=== PATIENT | male | born 1960 | race Hispanic/Latino ===

== ENCOUNTER 2016-08-29 15:10 | Emergency (ER) | payer MEDICARE, OTHER ==
[2016-08-29 15:11] VITALS: PULSE 81; BMI 22.8
[2016-08-29 15:42] VITALS: TEMP 98.6; O2SAT 95
[2016-08-29] MEDS ORDERED: Oxycodone/Acetaminophen 5/325 mg Tab PO STA (16:01)
--- NOTE | 2016-08-29 16:06 | ED PDOC ---
Arrival/HPI - General Chief Complaint: Dental Pain Time Seen by Provider: 08/29/16 15:51 Historian: Patient - History of Present Illness Narrative History of Present Illness (Text): 08/29/16 16:03 56yo male with PMHX of hypertension, ESRD on dialysis present with one week history of toothache, mouth pain. states he has being taking ASA for the pain without relieve. Pain became worse today and he is unable to chew food secondary to the pain. Denies fever, chills, drooling, any other complaint. Past Medical History - Provider Review Nursing Documentation Reviewed: Yes - Past History Past History: Non-Contributing - Infectious Disease Hx of Infectious Diseases: None - Tetanus Immunization Tetanus Immunization: Unknown - Reproductive Currently : No - Cardiac Hx Cardiac Disorders: Yes Hx Hypertension: Yes Hx Pacemaker: No - Pulmonary Hx Respiratory Disorders: Yes Hx Bronchitis: Yes Hx Chronic Obstructive Pulmonary Disease (COPD): Yes - Neurological Hx Neurological Disorder: No - HEENT Hx HEENT Disorder: No Hx Blind: No Hx Cataracts: No Hx Deafness: No Hx Difficulty Chewing: No Hx Epistaxis: No Hx Glaucoma: No Hx Macular Degeneration: No - Renal Hx Dialysis: Yes Date of Last Dialysis Treatment: 04/19/16 Hx Renal Failure: Yes (Hemodialysis) Other/Comment: glomerlonephritis (last may). Hemo dialysis M,W,F, [facility]. Has working left arm AV fistula, intermittent peritoneal dialysis - Endocrine/Metabolic Hx Endocrine Disorders: No - Hematological/Oncological Hx Blood Disorders: Yes - Integumentary Hx Dermatological Disorder: No - Musculoskeletal/Rheumatological Hx Falls: No - Gastrointestinal Hx Gastrointestinal Disorders: No - Genitourinary/Gynecological Hx Genitourinary Disorders: No Other/Comment: oliguria - Psychiatric Hx Psychophysiologic Disorder: No Hx Emotional Abuse: No Hx Physical Abuse: No Hx Substance Use: No - Surgical History Other/Comment: Left forearm av fistula , r chest udall insertion and removal, excision throat cyst - Anesthesia Hx Anesthesia: Yes Hx Anesthesia Reactions: No Hx Malignant Hyperthermia: No - Suicidal Assessment Feels Threatened In Home Enviroment: No Family/Social History - Physician Review Nursing Documentation Reviewed: Yes Family/Social History: Unknown Family HX Smoking Status: Former Smoker Hx Alcohol Use: No Hx Substance Use: No Hx Substance Use Treatment: No Allergies/Home Meds Allergies/Adverse Reactions: Allergies No Known Allergies Allergy (Verified 08/29/16 15:34) Home Medications: Home Meds Medication Instructions Recorded Confirmed Pantoprazole [Protonix EC Tab] 20 mg PO DAILY 08/30/13 04/21/16 Ramipril 5 mg PO BID 03/01/14 04/21/16 Cinacalcet [Sensipar] 30 mg PO DAILY 06/13/15 03/24/16 Digoxin [Lanoxin] 0.25 mg PO MWF 06/13/15 03/24/16 Vitamin B Complex/Vit C/Folic 1 tab PO DAILY 06/13/15 04/21/16 [Nephro-Karis] Calcium Acetate [Phoslo] 667 mg PO WM 01/18/16 04/21/16 Ferric Citrate [Auryxia] 210 mg PO TID 08/29/16 08/29/16 Review of Systems - Physician Review All systems were reviewed & negative as marked: Yes - Review of Systems Constitutional: Normal Eyes: Normal ENT: Other (Toothache) Respiratory: Normal Cardiovascular: Normal Gastrointestinal: Normal Genitourinary Male: Normal Musculoskeletal: Normal Skin: Normal Neurological: Normal Endocrine: Normal Hemo/Lymphatic: Normal Psychiatric: Normal Physical Exam Vital Signs Reviewed: Yes Vital Signs Temp Pulse Resp BP Pulse Ox 08/29/16 15:41 98.6 F 79 20 160/100 H 95 Temperature: Afebrile Blood Pressure: Normal Pulse: Regular Respiratory Rate: Normal Appearance: Positive for: Well-Appearing, Non-Toxic, Comfortable Pain Distress: None Mental Status: Positive for: Alert and Oriented X 3 - Systems Exam Head: Present: Atraumatic, Normocephalic Pupils: Present: PERRL Extroacular Muscles: Present: EOMI Conjunctiva: Present: Normal Mouth: Present: Moist Mucous Membranes. No: Normal Teeth (Poor dention in general. Multiple missing tooth noted) Neck: Present: Normal Range of Motion Respiratory/Chest: Present: Clear to Auscultation, Good Air Exchange. No: Respiratory Distress, Accessory Muscle Use Cardiovascular: Present: Regular Rate and Rhythm, Normal S1, S2. No: Murmurs Abdomen: Present: Normal Bowel Sounds. No: Tenderness, Distention, Peritoneal Signs Back: Present: Normal Inspection Upper Extremity: Present: Normal Inspection. No: Cyanosis, Edema Lower Extremity: Present: Normal Inspection. No: Edema Neurological: Present: GCS=15, CN II-XII Intact, Speech Normal Skin: Present: Warm, Dry, Normal Color. No: Rashes Psychiatric: Present: Alert, Oriented x 3, Normal Insight, Normal Concentration Medical Decision Making ED Course and Treatment: 08/29/16 16:39 PT was afebrile and hemodynamically stable in ED. He was tx and DC home with Percocet and Amoxicillin. he was advised to f/u with a Dentist. He notes that he plans to see a dentist tomorrow. Advised to eat soft food. - Medication Orders Current Medication Orders: Discontinued Medications Amoxicillin (Amoxil 500 Mg Cap) 500 mg PO STAT STA PRN Reason: Protocol Stop: 08/29/16 16:02 Last Admin: 08/29/16 16:30 Dose: 500 mg Oxycodone/Acetaminophen (Percocet 5/325 Mg Tab) 1 tab PO STAT STA Stop: 08/29/16 16:02 Last Admin: 08/29/16 16:30 Dose: 1 tab Disposition/Present on Arrival - Present on Arrival Any Indicators Present on Arrival: No History of DVT/PE: No History of Uncontrolled Diabetes: No Urinary Catheter: No History of Decub. Ulcer: No History Surgical Site Infection Following: None - Disposition Have Diagnosis and Disposition been Completed?: Yes Diagnosis: Dental caries Disposition: HOME/ ROUTINE Disposition Time: 16:10 Patient Plan: Discharge Condition: STABLE Discharge Instructions (ExitCare): Dental Caries (ED) Additional Instructions: Take medication as directed Follow up with a Dentist Return to ED for any new symptoms Prescriptions: Amoxicillin 500 mg PO TID #21 tablet Chlorhexidine 0.12% [Peridex] 15 ml MM BID #1 bottle oxyCODONE/Acetaminophen [Percocet 5/325 mg Tab] 1 ea PO Q6 #6 tab Referrals: Dayron Mart, [facility] [Non-Staff] - Follow up with primary
[2016-08-29 18:00] VITALS: BP 156/89; PULSE 71; RESP 18
== END 2016-08-29 16:36 | disposition home or self-care (01) ==
LOC: ED 15:10
DX: K02.9 Dental caries, unspecified (principal)

== ENCOUNTER 2016-08-30 20:42 | Observation (INO) | payer MEDICARE ==
[2016-08-30 20:42] VITALS: PULSE 81
--- NOTE | 2016-08-30 21:26 | ED PDOC ---
Arrival/HPI - General Chief Complaint: Medical Clearance Time Seen by Provider: 08/30/16 21:06 Historian: Patient - History of Present Illness Narrative History of Present Illness (Text): 08/30/16 21:24 56 year old male on hemodialysis (M,W,F) presents to the emergency department for dialysis after missing dialysis today (Friday). Patient's last dialysis was two days ago. He states he was told his potassium was high at that time but does not know if it was before or after dialysis. Patient is complaining of pain in his jaw. He states he had dental work today which is the reason why he missed dialysis. Denies chest pain or shortness of breath. Associated Symptoms (Text): None Past Medical History - Provider Review Nursing Documentation Reviewed: Yes - Past History Past History: Non-Contributing - Infectious Disease Hx of Infectious Diseases: None - Tetanus Immunization Tetanus Immunization: Unknown - Reproductive Currently : No - Cardiac Hx Cardiac Disorders: Yes Hx Hypertension: Yes Hx Pacemaker: No - Pulmonary Hx Respiratory Disorders: Yes Hx Bronchitis: Yes Hx Chronic Obstructive Pulmonary Disease (COPD): Yes - Neurological Hx Neurological Disorder: No - HEENT Hx HEENT Disorder: No Hx Blind: No Hx Cataracts: No Hx Deafness: No Hx Difficulty Chewing: No Hx Epistaxis: No Hx Glaucoma: No Hx Macular Degeneration: No - Renal Hx Dialysis: Yes Date of Last Dialysis Treatment: 08/28/16 Hx Renal Failure: Yes (Hemodialysis) Other/Comment: glomerlonephritis (last may). Hemo dialysis M,W,F, [facility]. Has working left arm AV fistula, intermittent peritoneal dialysis - Endocrine/Metabolic Hx Endocrine Disorders: No - Hematological/Oncological Hx Blood Disorders: Yes - Integumentary Hx Dermatological Disorder: No - Musculoskeletal/Rheumatological Hx Falls: No - Gastrointestinal Hx Gastrointestinal Disorders: No - Genitourinary/Gynecological Hx Genitourinary Disorders: No Other/Comment: oliguria - Psychiatric Hx Psychophysiologic Disorder: No Hx Emotional Abuse: No Hx Physical Abuse: No Hx Substance Use: No - Surgical History Other/Comment: Left forearm av fistula , r chest udall insertion and removal, excision throat cyst - Anesthesia Hx Anesthesia: Yes Hx Anesthesia Reactions: No Hx Malignant Hyperthermia: No - Suicidal Assessment Feels Threatened In Home Enviroment: No Family/Social History - Physician Review Nursing Documentation Reviewed: Yes Family/Social History: Unknown Family HX Smoking Status: Former Smoker Hx Alcohol Use: No Hx Substance Use: No Hx Substance Use Treatment: No Allergies/Home Meds Allergies/Adverse Reactions: Allergies No Known Allergies Allergy (Verified 08/30/16 20:52) Home Medications: Home Meds Medication Instructions Recorded Confirmed Pantoprazole [Protonix EC Tab] 20 mg PO DAILY 08/30/13 08/31/16 Ramipril 5 mg PO BID 03/01/14 08/31/16 Cinacalcet [Sensipar] 30 mg PO DAILY 06/13/15 08/31/16 Digoxin [Lanoxin] 0.25 mg PO MWF 06/13/15 08/31/16 Vitamin B Complex/Vit C/Folic 1 tab PO DAILY 06/13/15 08/31/16 [Nephro-Karis] Calcium Acetate [Phoslo] 667 mg PO WM 01/18/16 08/31/16 Ferric Citrate [Auryxia] 210 mg PO TID 08/29/16 08/31/16 Review of Systems - Physician Review All systems were reviewed & negative as marked: Yes - Review of Systems Respiratory: absent: SOB Cardiovascular: absent: Chest Pain Physical Exam Vital Signs Reviewed: Yes Vital Signs Temp Pulse Resp BP Pulse Ox 08/30/16 21:12 98.5 F 95 H 16 159/101 H 90 L 08/30/16 20:46 98.7 F 85 20 158/105 H 96 Temperature: Afebrile Blood Pressure: Hypertensive Pulse: Regular Respiratory Rate: Normal Appearance: Positive for: Well-Appearing, Non-Toxic Mental Status: Positive for: Alert and Oriented X 3 - Systems Exam Head: Present: Atraumatic, Normocephalic Pupils: Present: PERRL Extroacular Muscles: Present: EOMI Conjunctiva: Present: Normal Mouth: Present: Moist Mucous Membranes Neck: Present: Normal Range of Motion Respiratory/Chest: Present: Clear to Auscultation, Good Air Exchange. No: Respiratory Distress, Accessory Muscle Use Cardiovascular: Present: Regular Rate and Rhythm, Normal S1, S2. No: Murmurs Abdomen: Present: Normal Bowel Sounds. No: Tenderness, Distention, Peritoneal Signs Back: Present: Normal Inspection Upper Extremity: Present: Other (Left upper extremity AV graft with good thrill and bruit. ). No: Cyanosis, Edema Lower Extremity: Present: Normal Inspection. No: Edema Neurological: Present: GCS=15, CN II-XII Intact, Speech Normal Skin: Present: Warm, Dry, Normal Color, Other (Chronic skin lesions around body) . No: Rashes Psychiatric: Present: Alert, Oriented x 3, Normal Insight, Normal Concentration Medical Decision Making ED Course and Treatment: Impression: 56 year old male on hemodialysis (M,W,F) presents to the emergency department for dialysis after missing dialysis today (Friday). Plan: -- EKG -- Labs -- Reassess and disposition Prior Visits: Notes and results from previous visits were reviewed. Patient last seen in ED on 08/29/16 for tooth pain and discharged home. Progress Notes: Chest xray: no active disease, interpreted by me. 08/30/16 22:20 Potassium 7.3, stat ekg was done. Dr. Gomez paged and spoken to, who recommends calcium gluconate dose and to withhold bicarb at this time. Patient to receive emergent dialysis at 11 pm. 08/31/16 00:[address] Reese, who agrees and accepts patient under her service to be admitted to [facility]. Dr. Reese also requesting one dose of Kayexalate to be given in emergency department. Reevaluation: I have discussed the results and plan with the patient, who expresses understanding. Patient given the opportunity to ask question, all questions were answered and there is agreement with the plan to be admitted to the hospital. - Lab Interpretations Lab Results: 08/30/16 21:30 08/30/16 21:30 Lab Results 08/30/16 21:30: Troponin I 0.10 D 08/30/16 21:30: Sodium 137, Potassium 7.3 H*, Chloride 90 L, Carbon Dioxide 19 L , Anion Gap 35 H, BUN 82 H, Creatinine 13.7 H*, Est GFR ( Amer) 5, Est GFR (Non-Af Amer) 4, Random Glucose 85, Calcium 9.6, Total Bilirubin 1.0, AST 28 , ALT 30, Alkaline Phosphatase 61, Total Protein 7.4, Albumin 4.4, Globulin 3.1 , Albumin/Globulin Ratio 1.4 08/30/16 21:30: WBC 7.3, RBC 3.30 L, Hgb 11.6 L, Hct 35.6 L, MCV 107.9 H, MCH 35.2 H, MCHC 32.6, RDW 15.2 H, Plt Count 217, MPV 9.1, Gran % 68.6 H, Lymph % ( Auto) 16.1 L, [place] % (Auto) 9.3 H, Eos % (Auto) 5.2 H, Baso % (Auto) 0.8, Gran # 5.01, Lymph # 1.2, [place] # 0.7 H, Eos # 0.4, Baso # 0.06 - Medication Orders Current Medication Orders: Discontinued Medications Acetaminophen (Tylenol 325mg Tab) 975 mg PO STAT STA Stop: 08/31/16 00:30 Last Admin: 08/31/16 02:49 Dose: 975 mg Calcium Gluconate 1,000 mg/ (Sodium Chloride) 110 mls @ 100 mls/hr IV STAT STA Stop: 08/30/16 23:35 Last Admin: 08/30/16 22:40 Dose: 100 mls/hr Sodium Polystyrene Sulfonate (Kayexalate Oral Susp) 15 gm PO STAT STA Stop: 08/31/16 00:31 Last Admin: 08/31/16 02:49 Dose: 15 gm - Scribe Statement The provider has reviewed the documentation as recorded by the Demian Barker Provider Scribe Attestation: All medical record entries made by the Demian were at my direction and personally dictated by me. I have reviewed the chart and agree that the record accurately reflects my personal performance of the history, physical exam, medical decision making, and the department course for this patient. I have also personally directed, reviewed, and agree with the discharge instructions and disposition. Disposition/Present on Arrival - Present on Arrival Any Indicators Present on Arrival: No History of DVT/PE: No History of Uncontrolled Diabetes: No Urinary Catheter: No History of Decub. Ulcer: No History Surgical Site Infection Following: None - Disposition Have Diagnosis and Disposition been Completed?: Yes Diagnosis: ESRD (end stage renal disease), Hyperkalemia Disposition: HOSPITALIZED Disposition Time: 00:30 Condition: STABLE
[2016-08-30 21:44] LABS: BASO # 0.06 K/mm3 (0.0-2.0); BASO % 0.8 % (0.0-3.0); EOS # 0.4 (0.0-0.7); EOS % 5.2 % (1.5-5.0); GRAN # 5.01 (1.4-6.5); GRAN % 68.6 % (50.0-68.0); HEMOGLOBIN 11.6 gm/dL (14.0-18.0); LYMPH # 1.2 (1.2-3.4); LYMPH % 16.1 % (22.0-35.0); MEAN CELL VOLUME 107.9 fL (80.0-105.0); MEAN CORPUSCULAR HEMOGLOBIN 35.2 pg (25.0-35.0); MEAN CORPUSCULAR HGB CONC 32.6 g/dl (31.0-37.0); MEAN PLATELET VOLUME 9.1 fl (7.0-11.0); MONO # 0.7 (0.1-0.6); MONO % 9.3 % (1.0-6.0); PLATELET COUNT 217 10^3/uL (120.0-450.0); RED CELL DISTRIBUTION WIDTH 15.2 % (11.5-14.5); WHITE BLOOD COUNT 7.3 10^3/ul (4.5-11.0)
[2016-08-30 21:51] LABS: ALB/GLOB RATIO 1.4 (1.1-1.8); ALBUMIN 4.4 g/dL (3.0-4.8); CALCIUM 9.6 mg/dL (8.4-10.5)
[2016-08-30] MEDS ORDERED: Sodium Bicarbonate (8.4%) 50 Meq Syringe IVP ONE ×2 (22:20→22:21)
[2016-08-31] MEDS ORDERED: Sod Polystyrene Sulf 15 gm/60 ml Oral Susp PO STA (00:30)
[2016-08-31 06:09] VITALS: RESP 20; BMI 23.6
[2016-08-31] MEDS ORDERED: Pneumococcal 23-Valent Vaccine IM ONE (06:10)
[2016-08-31 06:30] VITALS: O2SAT 97
--- NOTE | 2016-08-31 06:48 | CP.PCM.PN ---
Subjective - Date & Time of Evaluation Date of Evaluation: 08/31/16 Time of Evaluation: 06:34 - Subjective Subjective: s:Patient seen at bedside for tooth ache. States that his all teeth are hurting. States that he had been to a dentist yesterday. Has no other complaints now. O: Last Vital Signs 3 Temp 98.1 F 08/31/16 06:00 Pulse 89 08/31/16 06:13 Resp 20 08/31/16 06:00 BP 172/88 H 08/31/16 06:00 Pulse Ox 97 08/31/16 06:00 Awake, alert, not in distress. LUNGS:Normal breathing pattern. TEETH:Did not allow exam. A:Tooth ache. P:Tylenol 975 mg po stat. Objective - Vital Signs/Intake and Output Vital Signs (last 24 hours): Temp Pulse Resp BP Pulse Ox 98.1 F 89 20 172/88 H 97 08/31/16 06:00 08/31/16 06:13 08/31/16 06:00 08/31/16 06:00 08/31/16 06:00
[2016-08-31 09:21] LABS: ALB/GLOB RATIO 1.4 (1.1-1.8); ALBUMIN 4.6 g/dL (3.0-4.8); CALCIUM 9.7 mg/dL (8.4-10.5)
--- NOTE | 2016-08-31 09:59 | CARD ---
APPROVED REPORT EKG Measurement Heart [id number] <Conclusion> Sinus rhythm with frequent and consecutive APCs LBBB STTW changes All new c/w ECG 04/21/16
[2016-08-31] MEDS ORDERED: Pantoprazole 20 mg EC Tab PO SCH (10:00)
[2016-08-31] MEDS ORDERED: Sod Polystyrene Sulf 15 gm/60 ml Oral Susp PO ONE (10:07)
[2016-08-31] MEDS ORDERED: Aluminum Hydroxide/Magnesium 30 ML, DiphenhydrAMINE 75 MG, Lidocaine 2% Viscous 30 ML PO PRN (10:36)
[2016-08-31 11:44] VITALS: TEMP 98.2
[2016-08-31] MEDS: Oxycodone/Acetaminophen 5/325 mg Tab PO SCH ×2 (12:10→18:04)
[2016-08-31] MEDS: Chlorhexidine 0.12% Oral Sol 480 ml Bot PO SCH ×2 (12:24→18:11)
[2016-08-31 14:23] LABS: HEMOGLOBIN 11.1 gm/dL (14.0-18.0); MEAN CELL VOLUME 106.8 fL (80.0-105.0); MEAN CORPUSCULAR HEMOGLOBIN 34.5 pg (25.0-35.0); MEAN CORPUSCULAR HGB CONC 32.3 g/dl (31.0-37.0); MEAN PLATELET VOLUME 8.9 fl (7.0-11.0); RBC 3.22 10^6/uL (3.5-6.1); RED CELL DISTRIBUTION WIDTH 14.8 % (11.5-14.5); WHITE BLOOD COUNT 6.1 10^3/ul (4.5-11.0)
[2016-08-31 14:27] LABS: ALB/GLOB RATIO 1.5 (1.1-1.8); ALBUMIN 4.2 g/dL (3.0-4.8); CALCIUM 9.3 mg/dL (8.4-10.5); MAGNESIUM 2.7 mg/dL (1.7-2.2)
[2016-08-31 18:07] VITALS: BP 175/93; PULSE 84
[2016-08-31 18:36] LABS: ALB/GLOB RATIO 1.4 (1.1-1.8); ALBUMIN 4.6 g/dL (3.0-4.8); CALCIUM 9.8 mg/dL (8.4-10.5)
[2016-09-02] MEDS ORDERED: Digoxin 250 mcg (0.25 mg) Tab PO SCH (10:00)
== END 2016-08-31 19:32 | disposition home or self-care (01) ==
LOC: ED 20:42 → ERH 08-31 00:30 → 2RSO 08-31 03:07
PROVIDERS: ADMIT Internal Medicine; ATTEND Internal Medicine
DX: I12.0 Hypertensive chronic kidney disease with stage 5 chronic kidney disease or end stage renal disease (principal); N18.6 End stage renal disease; J44.9 Chronic obstructive pulmonary disease, unspecified; E87.5 Hyperkalemia; Z99.2 Dependence on renal dialysis; K08.89 Other specified disorders of teeth and supporting structures; D64.9 Anemia, unspecified; R34 Anuria and oliguria; Z87.891 Personal history of nicotine dependence; Z91.15 Patient's noncompliance with renal dialysis
CPT/HCPCS: 36415; 80053; 83735; 84100; 84484; 85025; 85027; 93005; 96374; 99285; G0257; G0378; J0610

== ENCOUNTER 2017-01-12 11:54 | Emergency (ER) | payer MEDICARE ==
[2017-01-12 11:54] VITALS: PULSE 81; BMI 23.6
[2017-01-12] MEDS ORDERED: Ipratropium 0.02% Inhal Soln (0.5 mg/2.5 ml) UD IH STA (12:10)
[2017-01-12 12:20] VITALS: TEMP 97.7
--- NOTE | 2017-01-12 12:51 | ED PDOC ---
Arrival/HPI - General Chief Complaint: Shortness Of Breath Time Seen by Provider: 01/12/17 11:55 Historian: Patient - History of Present Illness Narrative History of Present Illness (Text): 01/12/17 12:54 A 56 year old male, whose past medical history includes ESRD on dialysis (M, W, F), left upper extremity fistula, last dialysis Friday, and CHF, presents to the emergency department complaining of 2 days of relative and worsening shortness of breath. Patient reports exercise tolerance from 1-2 miles to a block. Notes abdomen feels full and distended in general. Reports he wants photo optics technician to take off more fluids, but they're not taking him off. Patient feels he needs emergent dialysis. Patient denies any fever, chills, chest pain, palpitations, orthopnea, pnd, peripheral edema, syncopal events or any other complaints at this time. Therapy Assistant: Dr. Gomez Time/Duration: Other (2 days) Symptom Onset: Sudden Symptom Course: Unchanged Activities at Onset: Rest Context: Home Past Medical History - Provider Review Nursing Documentation Reviewed: Yes - Past History Past History: Non-Contributing - Infectious Disease Hx of Infectious Diseases: None - Tetanus Immunization Tetanus Immunization: Unknown - Reproductive Currently : No - Cardiac Hx Cardiac Disorders: Yes Hx Hypertension: Yes Hx Pacemaker: No - Pulmonary Hx Respiratory Disorders: Yes Hx Bronchitis: Yes Hx Chronic Obstructive Pulmonary Disease (COPD): Yes - Neurological Hx Neurological Disorder: No - HEENT Hx HEENT Disorder: No Hx Blind: No Hx Cataracts: No Hx Deafness: No Hx Difficulty Chewing: No Hx Epistaxis: No Hx Glaucoma: No Hx Macular Degeneration: No - Renal Hx Dialysis: Yes Type of Dialysis Access: shunt left arm Date of Last Dialysis Treatment: 01/10/17 Hx Renal Failure: Yes - Endocrine/Metabolic Hx Endocrine Disorders: No - Hematological/Oncological Hx Blood Disorders: Yes - Integumentary Hx Dermatological Disorder: No - Musculoskeletal/Rheumatological Hx Falls: No - Gastrointestinal Hx Gastrointestinal Disorders: No - Genitourinary/Gynecological Hx Genitourinary Disorders: No Other/Comment: oliguria - Psychiatric Hx Psychophysiologic Disorder: No Hx Emotional Abuse: No Hx Physical Abuse: No Hx Substance Use: No - Surgical History Other/Comment: Left forearm av fistula , r chest udall insertion and removal, excision throat cyst - Anesthesia Hx Anesthesia: Yes Hx Anesthesia Reactions: No Hx Malignant Hyperthermia: No - Suicidal Assessment Feels Threatened In Home Enviroment: No Family/Social History - Physician Review Nursing Documentation Reviewed: Yes Family/Social History: No Known Family HX Smoking Status: Current Some Days Smoker Hx Alcohol Use: Yes Frequency of alcohol use: Socially Hx Substance Use: No Hx Substance Use Treatment: No Allergies/Home Meds Allergies/Adverse Reactions: Allergies No Known Allergies Allergy (Verified 08/30/16 20:52) Home Medications: Home Meds Medication Instructions Recorded Confirmed Pantoprazole [Protonix EC Tab] 20 mg PO DAILY 08/30/13 08/31/16 Ramipril 5 mg PO BID 03/01/14 08/31/16 Cinacalcet [Sensipar] 30 mg PO DAILY 06/13/15 08/31/16 Digoxin [Lanoxin] 0.25 mg PO MWF 06/13/15 08/31/16 Vitamin B Complex/Vit C/Folic 1 tab PO DAILY 06/13/15 08/31/16 [Nephro-Karis] Calcium Acetate [Phoslo] 667 mg PO WM 01/18/16 08/31/16 Ferric Citrate [Auryxia] 210 mg PO TID 08/29/16 08/31/16 Review of Systems - Physician Review All systems were reviewed & negative as marked: Yes - Review of Systems Constitutional: absent: Fevers, Other (chills) Respiratory: SOB, Cough (chronic smokers) Cardiovascular: absent: Chest Pain, Palpitations, Orthopnea Physical Exam Vital Signs Reviewed: Yes Vital Signs Temp Pulse Resp BP Pulse Ox 01/12/17 21:02 81 18 149/88 100 01/12/17 16:18 92 H 18 151/83 H 94 L 01/12/17 15:13 20 01/12/17 14:48 161/82 H 01/12/17 14:26 94 H 16 171/101 H 100 01/12/17 12:01 97.7 F 110 H 16 169/87 H 95 Temperature: Afebrile Blood Pressure: Hypertensive Pulse: Tachycardic Respiratory Rate: Normal Appearance: Positive for: Well-Appearing, Non-Toxic, Comfortable Pain Distress: None Mental Status: Positive for: Alert and Oriented X 3 - Systems Exam Head: Present: Atraumatic, Normocephalic Pupils: Present: PERRL Extroacular Muscles: Present: EOMI Conjunctiva: Present: Normal Mouth: Present: Moist Mucous Membranes Neck: Present: Normal Range of Motion Respiratory/Chest: Present: Other (decrease i/e ratio). No: Respiratory Distress, Accessory Muscle Use Cardiovascular: Present: Regular Rate and Rhythm, Normal S1, S2. No: Murmurs Abdomen: Present: Normal Bowel Sounds. No: Tenderness, Distention, Peritoneal Signs Back: Present: Normal Inspection Upper Extremity: Present: Normal Inspection, Other (left upper extremity fistula forearm palpable, thrill and auscultative bruits). No: Cyanosis, Edema Lower Extremity: Present: Normal Inspection, NORMAL PULSES, Other (no peripheral edema). No: Edema Neurological: Present: GCS=15, CN II-XII Intact, Speech Normal Skin: Present: Warm, Dry, Normal Color. No: Rashes Psychiatric: Present: Alert, Oriented x 3, Normal Insight, Normal Concentration Medical Decision Making ED Course and Treatment: 01/12/17 12:48 Impression: A 56 year old male with shortness of breath. Plan: -- EKG -- Chest xray -- labs -- Urinalysis -- Atrovent -- Reassess and disposition Prior Visits: Notes and results from previous visits were reviewed. Patient last reported to the emergency department on 08/31/16 for dialysis treatment. Progress Notes: 01/12/17 13:33 Chest xray Creator : Leland Connelly MD FINDINGS: LUNGS: Diffuse interstitial infiltrate. Right medial basilar opacity is felt to be artifactual and does not correspond any abnormality in the lateral projection. . PLEURA: No significant pleural effusion identified. No pneumothorax apparent. CARDIOVASCULAR: Normal. OSSEOUS STRUCTURES: No significant abnormalities. VISUALIZED UPPER ABDOMEN: Normal. IMPRESSION: Diffuse interstitial infiltrate. Nonspecific peer In comparison to the prior examination, the interstitial infiltrate has not changed. Previously identified focal opacity in the left perihilar region has resolved. Right medial basilar opacity is felt to be artifactual and does not correspond any opacity in the lateral projection. 01/12/17 13:56 EKG: Ordered, reviewed, and independently interpreted the EKG. Rate : 88 BPM Rhythm : NSR Interpretation : T wave inversion in 1 and avl, subtle ST/T segment in v4-v6, lvh 01/12/17 21:15 pt was dialysed , and walking out of er despite being implored to stay - Lab Interpretations Lab Results: 01/12/17 13:28 01/12/17 13:28 Lab Results 01/12/17 13:28: Sodium 140, Chloride 92 L, Potassium 6.5 H* D, Carbon Dioxide 28 , Anion Gap 27 H, BUN 72 H, Creatinine 11.1 H*, Est GFR ( Amer) 6, Est GFR (Non-Af Amer) 5, Random Glucose 94, Calcium 10.9 H, Total Bilirubin 0.6, AST 39, ALT 31, Alkaline Phosphatase 72, Lactate Dehydrogenase 451, Total Creatine Kinase 87, Troponin I 0.10, NT-Pro-B Natriuret Pep [id number] H, Total Protein 7.6, Albumin 4.5, Globulin 3.1, Albumin/Globulin Ratio 1.5 01/12/17 13:28: pO2 34, VBG pH 7.38, VBG pCO2 51.0, VBG HCO3 30.2 H, VBG Total CO2 31.8 H, VBG O2 Sat (Calc) 62.0, VBG Base Excess 3.9 H, VBG Potassium 6.7 H* , Sodium 136.0, Chloride 96.0 L, Glucose 95, Lactate 1.1, FiO2 21.0, Venous Blood Potassium 6.7 H* 01/12/17 13:28: PT 11.5, INR 1.05, APTT 33.3 01/12/17 13:28: WBC 10.9 D, RBC 2.48 L, Hgb 8.5 L, Hct 26.9 L, MCV 108.5 H, MCH 34.3, MCHC 31.6, RDW 15.4 H, Plt Count 259, MPV 8.7, Gran % 81.7 H, Lymph % (Auto) 9.9 L, [place] % (Auto) 5.7, Eos % (Auto) 2.2, Baso % (Auto) 0.5, Gran # 8.93 H, Lymph # 1.1 L, [place] # 0.6, Eos # 0.2, Baso # 0.06 I have reviewed the lab results: Yes - RAD Interpretation Radiology Orders: 01/12/17 12:09 CHEST TWO VIEWS (PA/LAT) [RAD] Stat - EKG Interpretation Interpreted by ED Physician: Yes Type: 12 lead EKG - Medication Orders Current Medication Orders: Discontinued Medications Calcium Gluconate (Calcium Gluconate Iv) 1,000 mg IVP ONCE ONE Stop: 01/12/17 14:06 Last Admin: 01/12/17 14:51 Dose: 1,000 mg IVP Administration Document 01/12/17 14:51 HI (Rec: 01/12/17 14:51 WI [id number]) Charges for Administration # of IVP Administrations 1 Ipratropium [place] (Atrovent) 0.5 mg IH STAT STA Stop: 01/12/17 12:11 Last Admin: 01/12/17 13:34 Dose: 0.5 mg - Scribe Statement The provider has reviewed the documentation as recorded by the Demian Padgett Provider Scribe Attestation: All medical record entries made by the Scribe were at my direction and personally dictated by me. I have reviewed the chart and agree that the record accurately reflects my personal performance of the history, physical exam, medical decision making, and the department course for this patient. I have also personally directed, reviewed, and agree with the discharge instructions and disposition. Disposition/Present on Arrival - Present on Arrival Any Indicators Present on Arrival: No History of DVT/PE: No History of Uncontrolled Diabetes: No Urinary Catheter: No History of Decub. Ulcer: No History Surgical Site Infection Following: None - Disposition Have Diagnosis and Disposition been Completed?: Yes Diagnosis: Fluid overload, Hyperkalemia Disposition: HOME/ ROUTINE Disposition Time: 21:17 Patient Plan: Discharge Condition: IMPROVED Discharge Instructions (ExitCare): Hemodialysis (ED) Print Language: AZERI Referrals: Deidra Gomez MD [Primary Care Provider] - Follow up with primary Forms: [email or web address] (Thai)
--- NOTE | 2017-01-12 13:29 | RAD ---
HISTORY: sob COMPARISON: 04/21/2016 TECHNIQUE: Chest PA and lateral FINDINGS: LUNGS: Diffuse interstitial infiltrate. Right medial basilar opacity is felt to be artifactual and does not correspond any abnormality in the lateral projection. . PLEURA: No significant pleural effusion identified. No pneumothorax apparent. CARDIOVASCULAR: Normal. OSSEOUS STRUCTURES: No significant abnormalities. VISUALIZED UPPER ABDOMEN: Normal. OTHER FINDINGS: None. IMPRESSION: Diffuse interstitial infiltrate. Nonspecific peer In comparison to the prior examination, the interstitial infiltrate has not changed. Previously identified focal opacity in the left perihilar region has resolved. Right medial basilar opacity is felt to be artifactual and does not correspond any opacity in the lateral projection.
[2017-01-12 13:43] LABS: BASO # 0.06 K/mm3 (0.0-2.0); BASO % 0.5 % (0.0-3.0); EOS # 0.2 (0.0-0.7); EOS % 2.2 % (1.5-5.0); GRAN # 8.93 (1.4-6.5); GRAN % 81.7 % (50.0-68.0); HEMATOCRIT 26.9 % (42.0-52.0); LYMPH # 1.1 (1.2-3.4); LYMPH % 9.9 % (22.0-35.0); MEAN CELL VOLUME 108.5 fl (80.0-105.0); MEAN CORPUSCULAR HEMOGLOBIN 34.3 pg (25.0-35.0); MEAN CORPUSCULAR HGB CONC 31.6 g/dl (31.0-37.0); MEAN PLATELET VOLUME 8.7 fl (7.0-11.0); MONO # 0.6 (0.1-0.6); MONO % 5.7 % (1.0-6.0); RED CELL DISTRIBUTION WIDTH 15.4 % (11.5-14.5); WHITE BLOOD COUNT 10.9 10^3/ul (4.5-11.0)
[2017-01-12 13:44] LABS: VENOUS BLOOD GAS BASE EXCESS 3.9 mmol/L (0.0-2.0); VENOUS BLOOD PH 7.38 (7.32-7.43)
[2017-01-12 13:56] LABS: INR 1.05 (0.93-1.08); PARTIAL THROMBOPLASTIN TIME 33.3 Seconds (25.1-36.5)
[2017-01-12 14:06] LABS: ALB/GLOB RATIO 1.5 (1.1-1.8); BILIRUBIN,TOTAL 0.6 mg/dL (0.2-1.3); CALCIUM 10.9 mg/dL (8.4-10.5); TOTAL PROTEIN 7.6 g/dL (5.8-8.3)
[2017-01-12 14:08] LABS: POTASSIUM 6.5 mmol/L (3.6-5.0)
[2017-01-12 14:13] LABS: TROPONIN I 0.1 ng/mL
--- NOTE | 2017-01-12 14:49 | CARD ---
APPROVED REPORT EKG Measurement Heart [id number] <Conclusion> Normal sinus rhythm Left ventricular hypertrophy with repolarization abnormality Abnormal ECG
[2017-01-12 16:19] VITALS: RESP 18
[2017-01-12 21:03] VITALS: BP 149/88; PULSE 81; O2SAT 100
== END 2017-01-12 21:22 | disposition home or self-care (01) ==
LOC: ED 11:54
DX: E87.70 Fluid overload, unspecified (principal); E87.5 Hyperkalemia; I12.0 Hypertensive chronic kidney disease with stage 5 chronic kidney disease or end stage renal disease; N18.6 End stage renal disease; F17.210 Nicotine dependence, cigarettes, uncomplicated; Z99.2 Dependence on renal dialysis
CPT/HCPCS: 71020; 80053; 82550; 82803; 83615; 83880; 84484; 85025; 85610; 85730; 87040; 93005; 96374; 99285; G0257; J0610

== ENCOUNTER 2017-01-29 13:02 | Observation (INO) | payer MEDICARE, MEDICAID, OTHER ==
[2017-01-29 13:03] VITALS: PULSE 81; BMI 23.6
--- NOTE | 2017-01-29 13:48 | ED PDOC ---
Arrival/HPI - General Historian: Patient - History of Present Illness Time/Duration: Prior to Arrival Symptom Onset: Gradual Symptom Course: Unchanged Quality: Other ("irritation") Severity Level: Mild Activities at Onset: Rest Context: Other - General Chief Complaint: Abnormal Labs Time Seen by Provider: 01/29/17 13:17 - History of Present Illness Narrative History of Present Illness (Text): 01/29/17 13:48 This is a 56 yo male with past medical hx of ESRD on HD MWF, past hx of drug abuse, alcohol abuse, peritoneal dialysis in the past, presenting today after being sent here from dialysis center. Pt says he finished dialysis completely today and was told to come to ER because of severe anemia and hyperkalemia. Pt also reports some mild chronic abdominal pain, diffusely located, not getting any better or worse. Dr. Gomez sent him here because of concern for internal bleeding. 01/29/17 14:07 01/29/17 14:10 01/29/17 14:17 PMH: ESRD, drug abuse, alcohol abuse PSH: left av fistula Allergies: NKDA FH: denies Social: current smoker. former alcoholic. former cocaine, hash user. (Jose Gaona) Past Medical History - Provider Review Nursing Documentation Reviewed: Yes - Travel History Have you recently traveled outside [place] w/in the past 3 mons?: No - Past History Past History: Non-Contributing - Infectious Disease Hx of Infectious Diseases: None - Tetanus Immunization Tetanus Immunization: Unknown - Reproductive Currently : No - Cardiac Hx Cardiac Disorders: Yes Hx Hypertension: Yes Hx Pacemaker: No - Pulmonary Hx Respiratory Disorders: Yes Hx Bronchitis: Yes Hx Chronic Obstructive Pulmonary Disease (COPD): Yes - Neurological Hx Neurological Disorder: No - HEENT Hx HEENT Disorder: No Hx Blind: No Hx Cataracts: No Hx Deafness: No Hx Difficulty Chewing: No Hx Epistaxis: No Hx Glaucoma: No Hx Macular Degeneration: No - Renal Hx Dialysis: Yes Date of Last Dialysis Treatment: 01/29/17 Hx Renal Failure: Yes - Endocrine/Metabolic Hx Endocrine Disorders: No - Hematological/Oncological Hx Blood Disorders: Yes - Integumentary Hx Dermatological Disorder: No - Musculoskeletal/Rheumatological Hx Falls: No - Gastrointestinal Hx Gastrointestinal Disorders: No - Genitourinary/Gynecological Hx Genitourinary Disorders: No Other/Comment: oliguria - Psychiatric Hx Psychophysiologic Disorder: No Hx Emotional Abuse: No Hx Physical Abuse: No Hx Substance Use: No - Surgical History Other/Comment: Left forearm av fistula , r chest udall insertion and removal, excision throat cyst - Anesthesia Hx Anesthesia: Yes Hx Anesthesia Reactions: No Hx Malignant Hyperthermia: No - Suicidal Assessment Feels Threatened In Home Enviroment: No Family/Social History - Physician Review Nursing Documentation Reviewed: Yes Family/Social History: Unknown Family HX Smoking Status: Current Some Days Smoker Hx Alcohol Use: Yes Hx Substance Use: No Hx Substance Use Treatment: No Allergies/Home Meds Allergies/Adverse Reactions: Allergies No Known Allergies Allergy (Verified 08/30/16 20:52) Home Medications: Home Meds Medication Instructions Recorded Confirmed Calcium Acetate [Phoslo] 667 mg PO WM 01/18/16 01/29/17 Amlodipine/Valsartan [Amlodipine 1 tab PO DAILY 01/29/17 01/29/17 Besylate-Valsartan 10 mg-320 mg] Review of Systems - Review of Systems Constitutional: absent: Fatigue, Weight Change Eyes: absent: Vision Changes, Photophobia ENT: absent: Hearing Changes, Tinnitus Respiratory: absent: SOB, Cough Cardiovascular: absent: Chest Pain, Palpitations Gastrointestinal: Abdominal Pain. absent: Stool Changes Genitourinary Male: absent: Dysuria, Frequency Musculoskeletal: absent: Arthralgias, Back Pain Skin: absent: Rash, Pruritis Neurological: absent: Headache, Dizziness Endocrine: absent: Diaphoresis, Polyuria Hemo/Lymphatic: absent: Adenopathy, Easy Bleeding Psychiatric: absent: Anxiety, Depression Physical Exam Vital Signs Reviewed: Yes Mental Status: Positive for: Alert and Oriented X 3 - Systems Exam Head: Present: Atraumatic, Normocephalic Extroacular Muscles: Present: EOMI Mouth: Present: Moist Mucous Membranes Respiratory/Chest: No: Respiratory Distress, Accessory Muscle Use Abdomen: Present: Other (stool guaiac negative ). No: Tenderness, Distention, Peritoneal Signs Rectal: No: Occult Blood Upper Extremity: Present: Normal Inspection. No: Cyanosis, Edema Lower Extremity: Present: Normal Inspection. No: Edema Neurological: Present: CN II-XII Intact, Speech Normal Skin: Present: Warm, Dry Psychiatric: Present: Alert, Oriented x 3, Normal Insight, Normal Concentration Vital Signs Temp Pulse Resp BP Pulse Ox 01/29/17 16:00 98.2 F 89 18 137/78 01/29/17 15:44 98.2 F 91 H 18 147/90 01/29/17 15:20 85 18 147/90 97 01/29/17 13:25 98.1 F 80 18 147/96 H 97 01/29/17 13:19 98.3 F 88 18 163/94 H 93 L - Lab Interpretations Lab Results: 01/29/17 14:00 01/29/17 14:00 Lab Results 01/29/17 14:00: Blood Type O NEGATIVE, Antibody Screen Negative, Crossmatch See Detail, BBK History Checked Patient has bt 01/29/17 14:00: PT 11.5, INR 1.05, APTT 30.0 01/29/17 14:00: Sodium 138, Potassium 3.6, Chloride 91 L, Carbon Dioxide 33, Anion Gap 18, BUN 23 H, Creatinine 4.5 H, Est GFR ( Amer) 17, Est GFR ( Non-Af Amer) 14, Random Glucose 106, Calcium 9.3, Total Bilirubin 0.5, AST 32, ALT 28, Alkaline Phosphatase 71, Troponin I 0.10, Total Protein 7.1, Albumin 4.1 , Globulin 3.0, Albumin/Globulin Ratio 1.4, Lipase 65 01/29/17 14:00: WBC 7.3 D, RBC 2.27 L, Hgb 7.7 L, Hct 24.2 L, MCV 106.6 H, MCH 33.9, MCHC 31.8, RDW 14.9 H, Plt Count 218, MPV 8.2, Gran % 73.6 H, Lymph % ( Auto) 13.4 L, [place] % (Auto) 8.9 H, Eos % (Auto) 3.7, Baso % (Auto) 0.4, Gran # 5.36, Lymph # 1.0 L, [place] # 0.7 H, Eos # 0.3, Baso # 0.03 Disposition/Present on Arrival - Present on Arrival Any Indicators Present on Arrival: No History of DVT/PE: No History of Uncontrolled Diabetes: No Urinary Catheter: No History of Decub. Ulcer: No History Surgical Site Infection Following: None - Disposition Have Diagnosis and Disposition been Completed?: Yes Disposition Time: 16:00 Patient Plan: Admission - Disposition Diagnosis: ESRD (end stage renal disease), Abdominal pain Disposition: HOSPITALIZED Patient Problems: Current Active Problems Problem Status Onset Abdominal pain Acute ESRD (end stage renal disease) Acute Condition: STABLE
[2017-01-29 14:16] LABS: BASO # 0.03 K/mm3 (0.0-2.0); BASO % 0.4 % (0.0-3.0); EOS # 0.3 (0.0-0.7); EOS % 3.7 % (1.5-5.0); GRAN # 5.36 (1.4-6.5); GRAN % 73.6 % (50.0-68.0); HEMATOCRIT 24.2 % (42.0-52.0); LYMPH % 13.4 % (22.0-35.0); MEAN CELL VOLUME 106.6 fl (80.0-105.0); MEAN CORPUSCULAR HEMOGLOBIN 33.9 pg (25.0-35.0); MEAN CORPUSCULAR HGB CONC 31.8 g/dl (31.0-37.0); MEAN PLATELET VOLUME 8.2 fl (7.0-11.0); MONO # 0.7 (0.1-0.6); MONO % 8.9 % (1.0-6.0); RED CELL DISTRIBUTION WIDTH 14.9 % (11.5-14.5); WHITE BLOOD COUNT 7.3 10^3/ul (4.5-11.0)
[2017-01-29 14:27] LABS: INR 1.05 (0.93-1.08)
[2017-01-29 15:15] LABS: POTASSIUM 3.6 mmol/L (3.6-5.0)
[2017-01-29 15:16] LABS: TROPONIN I 0.1 ng/mL
[2017-01-29 16:47] LABS: ALB/GLOB RATIO 1.4 (1.1-1.8); BILIRUBIN,TOTAL 0.5 mg/dL (0.2-1.3); CALCIUM 9.3 mg/dL (8.4-10.5); TOTAL PROTEIN 7.1 g/dL (5.8-8.3)
--- NOTE | 2017-01-29 17:57 | CARD ---
APPROVED REPORT EKG Measurement Heart [id number] <Conclusion> Normal sinus rhythm Possible Left atrial enlargement Left ventricular hypertrophy with repolarization abnormality Abnormal ECG
--- NOTE | 2017-01-29 20:37 | HP ---
HISTORY OF PRESENT ILLNESS: The patient is a 56-year-old who came to the emergency room after he was seen by Dr. Gomez and his hemoglobin was 7, so he was referred for further evaluation and GI workup. The patient is known to me from multiple previous admissions. The patient is complaining of abdominal discomfort and he states this is almost chronic. He gets intermittent abdominal pain. He does complain of feeling weak, tired, and dizzy at times. PAST MEDICAL HISTORY: Significant for: 1. End-stage renal disease, he used to be on peritoneal dialysis and now he is on hemodialysis. 2. History of hypertension. 3. Anemia. 4. Chronic back pain. ALLERGIES: NOT ALLERGIC TO ANY MEDICATION. MEDICATIONS AT HOME: He is on Protonix mg daily, ramipril 5 mg twice a day, PhosLo 667 three times a day, Coreg 6.25 twice a day, Sensipar 30 mg daily, and digoxin 0.25 Friday, Friday, and Friday. SOCIAL HISTORY: He is single and lives by himself. He still smokes. History of drug abuse. History of alcohol abuse in the past. REVIEW OF SYSTEMS: Significant for generalized weakness, feeling dizzy, and weak. PHYSICAL EXAMINATION: GENERAL: He is awake, alert, oriented, and looks pale. VITAL SIGNS: He is afebrile, pulse 88, respirations 18, and blood pressure 152/83. LUNGS: Bilateral fair airflow. No rhonchi or crackles. HEART: S1 and S2 audible. ABDOMEN: Soft and nontender. Slight left upper and left lower quadrant discomfort. NEUROLOGIC: He is awake, alert, oriented, and communicative. LABORATORY DATA: WBC 7.3, hemoglobin 7.7, hematocrit 24, and platelets 218. Chemistry: Sodium 138, potassium 3.6, chloride 91, CO2 of 33, BUN 23, creatinine 4.5, and blood sugar of 106. ASSESSMENT: 1. Symptomatic anemia, probably anemia of chronic disease. 2. Rule out gastrointestinal causes. 3. History of hypertension. 4. End-stage renal disease, on hemodialysis. PLAN: We will transfuse two pack RBCs and I will give him iron infusion. I will start him on Protonix. GI consult by Dr. Robles will be requested and Dr. Gomez to follow up the patient in a.m. also. Valdemar Reese MD [facility] # [id number]
[2017-01-30 07:21] LABS: BASO # 0.06 K/mm3 (0.0-2.0); BASO % 0.8 % (0.0-3.0); EOS # 0.3 (0.0-0.7); EOS % 3.6 % (1.5-5.0); GRAN # 5.31 (1.4-6.5); GRAN % 73.1 % (50.0-68.0); HEMATOCRIT 29.2 % (42.0-52.0); LYMPH # 1.1 (1.2-3.4); LYMPH % 14.6 % (22.0-35.0); MEAN CELL VOLUME 101.4 fl (80.0-105.0); MEAN CORPUSCULAR HEMOGLOBIN 32.6 pg (25.0-35.0); MEAN CORPUSCULAR HGB CONC 32.2 g/dl (31.0-37.0); MEAN PLATELET VOLUME 8.2 fl (7.0-11.0); MONO # 0.6 (0.1-0.6); MONO % 7.9 % (1.0-6.0); RED CELL DISTRIBUTION WIDTH 17.8 % (11.5-14.5); WHITE BLOOD COUNT 7.3 10^3/ul (4.5-11.0)
[2017-01-30 08:37] LABS: ALB/GLOB RATIO 1.4 (1.1-1.8); BILIRUBIN,TOTAL 0.5 mg/dL (0.2-1.3); CALCIUM 9.3 mg/dL (8.4-10.5); TOTAL PROTEIN 6.8 g/dL (5.8-8.3)
[2017-01-30 09:48] LABS: POTASSIUM 5.7 mmol/L (3.6-5.0)
[2017-01-30] MEDS ORDERED: Peg-Electrolyte Oral Soln 4L (Golytely) PO ONE (10:25)
[2017-01-30 12:57] LABS: RETIC% 2.21 % (0.5-1.5)
[2017-01-30 13:58] LABS: ERYTHROCYTE SEDIMENTATION RATE 56 mm/hr (0.00-15.0)
[2017-01-30] MEDS ORDERED: Darbepoetin Alfa 60 mcg/ml Inj IVP ONE (14:00)
--- NOTE | 2017-01-30 16:04 | PN ---
DATE: SUBJECTIVE: The patient is a 56-year-old, seen and examined, anxious to go home. Just finished smoking. He had leftover case of cigarettes that he brought with him. He was instructed strictly not to smoke in the hospital. For the same reason, he wants to go home and come back. However, he is being prepped for colonoscopy and endoscopy tomorrow. PHYSICAL EXAMINATION: GENERAL: He is awake, alert, oriented, and communicative. VITAL SIGNS: He is afebrile. Pulse 84, respirations 19, and blood pressure 154/97. LUNGS: Bilateral good airflow. No rhonchi or crackle. HEART: S1 and S2 audible. ABDOMEN: Soft. Slight palpable discomfort. NEUROLOGIC: He is awake, alert, oriented, and communicative. LABORATORY DATA: WBC is 7.3, hemoglobin 9.4, hematocrit 29.2, and platelets of 193. Chemistry; sodium 137, potassium 5.7, chloride 93, CO2 29, BUN 35, creatinine 7.4, and blood sugar of 90. ASSESSMENT: 1. Symptomatic anemia. 2. End-stage renal disease, on hemodialysis. 3. Hypertension. 4. Active smoking. PLAN: I will give him one dose of Venofer. He will be prepped for endoscopy and colonoscopy for tomorrow. Valdemar Reese MD
--- NOTE | 2017-01-30 17:22 | CP.PCM.CON ---
<Ya Mejia - Last Filed: 01/30/17 17:22> History of Present Illness - History of Present Illness History of Present Illness: S&E at bedside, earlier this am, chart reviewed. Request for GI consult is for Anemia. 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 He does c/o abdominal pain, feeling weak and tired. No melena or BRBPR, hematomesis, sob or chest pain. Denies EGD/ colon. PMH: ESRD on hemodialysis, used to be on peritoneal in the past, HTN,chronic back pain, anemia, reivewed chart had ct scan 12/2015: 1 cm hypodensity in the body pancreas body, likley benign. PSH: denies Family HX: noncontributory ALlergies: NKDA MEDS: reviewed as per [facility] Social HX: (+) tobacco use, h/o drug and etoh abuse on the past ROS: systems reviewed w/positive findings Past Patient History - Infectious Disease Hx of Infectious Diseases: None - Tetanus Immunizations Tetanus Immunization: Unknown - Past Medical History & Family History Past Medical History?: Yes - Past Social History Smoking Status: Current Some Days Smoker - CARDIAC Hx Cardiac Disorders: Yes Hx Hypertension: Yes Hx Pacemaker: No - PULMONARY Hx Respiratory Disorders: Yes Hx Bronchitis: Yes Hx Chronic Obstructive Pulmonary Disease (COPD): Yes - NEUROLOGICAL Hx Neurological Disorder: No - HEENT Hx HEENT Problems: No Hx Blind: No Hx Cataracts: No Hx Deafness: No Hx Difficulty Chewing: No Hx Epistaxis: No Hx Glaucoma: No Hx Macular Degeneration: No - RENAL Hx Dialysis: Yes Date of Last Dialysis Treatment: 01/29/17 Hx Renal Failure: Yes - ENDOCRINE/METABOLIC Hx Endocrine Disorders: No - HEMATOLOGICAL/ONCOLOGICAL Hx Blood Disorders: Yes - INTEGUMENTARY Hx Dermatological Problems: No - MUSCULOSKELETAL/RHEUMATOLOGICAL Hx Falls: No - GASTROINTESTINAL Hx Gastrointestinal Disorders: No - GENITOURINARY/GYNECOLOGICAL Hx Genitourinary Disorders: No Other/Comment: oliguria - PSYCHIATRIC Hx Psychophysiologic Disorder: No Hx Emotional Abuse: No Hx Physical Abuse: No Hx Substance Use: No - SURGICAL HISTORY Other/Comment: Left forearm av fistula , r chest udall insertion and removal, excision throat cyst - ANESTHESIA Hx Anesthesia: Yes Hx Anesthesia Reactions: No Hx Malignant Hyperthermia: No Meds Allergies/Adverse Reactions: Allergies Allergy/AdvReac Type Severity Reaction Status Date / Time No Known Allergies Allergy Verified 08/30/16 20:52 - Medications Medications: Current Medications Amlodipine Besylate (Norvasc) 5 mg PO DAILY [facility] Last Admin: 01/30/17 10:56 Dose: 5 mg Calcium Acetate (Phoslo) 667 mg PO WM [facility] Last Admin: 01/30/17 08:40 Dose: 667 mg Carvedilol (Coreg) 6.25 mg PO BID [facility] Last Admin: 01/30/17 10:56 Dose: 6.25 mg Cinacalcet (Sensipar) 30 mg PO DAILY [facility] Last Admin: 01/30/17 10:55 Dose: 30 mg Darbepoetin Jarred (Aranesp) 60 mcg IVP ONCE ONE Stop: 01/31/17 10:01 Valsartan (Diovan) 320 mg PO DAILY [facility] Physical Exam - Constitutional Appears: Non-toxic, No Acute Distress - Head Exam Head Exam: NORMOCEPHALIC - Eye Exam Eye Exam: Normal appearance. absent: Scleral icterus - ENT Exam ENT Exam: Mucous Membranes Moist - Neck Exam Neck exam: Positive for: Normal Inspection - Respiratory Exam Respiratory Exam: NORMAL BREATHING PATTERN. absent: Respiratory Distress - Cardiovascular Exam Cardiovascular Exam: +S1, +S2 - GI/Abdominal Exam GI & Abdominal Exam: Normal Bowel Sounds, Soft. absent: Guarding, Rebound, Tenderness - Extremities Exam Extremities exam: Negative for: calf tenderness - Neurological Exam Neurological exam: Alert, Oriented x3 Results - Vital Signs Recent Vital Signs: Last Vital Signs Temp 98.6 F 01/30/17 09:03 Pulse 86 01/30/17 10:56 Resp 19 01/30/17 09:03 BP 154/97 H 01/30/17 10:57 Pulse Ox 95 01/30/17 09:03 - Labs Result Diagrams: 01/30/17 06:30 01/30/17 06:30 Labs: Laboratory Results - last 24 hr 01/30/17 01/30/17 01/30/17 06:30 06:30 07:00 WBC 7.3 RBC 2.88 L Hgb 9.4 L Hct 29.2 L MCV 101.4 D MCH 32.6 MCHC 32.2 RDW 17.8 H Plt Count 193 MPV 8.2 Gran % 73.1 H Lymph % (Auto) 14.6 L [place] % (Auto) 7.9 H Eos % (Auto) 3.6 Baso % (Auto) 0.8 Gran # 5.31 Lymph # 1.1 L [place] # 0.6 Eos # 0.3 Baso # 0.06 ESR Retic Count Sodium 137 Potassium 5.7 H* D Chloride 93 L Carbon Dioxide 29 Anion Gap 21 H BUN 35 H Creatinine 7.4 H* D Est GFR ( Amer) 9 Est GFR (Non-Af Amer) 8 Random Glucose 90 Calcium 9.3 Phosphorus 5.6 H Total Bilirubin 0.5 AST 32 ALT 27 Alkaline Phosphatase 61 Total Protein 6.8 Albumin 4.0 Globulin 2.8 Albumin/Globulin Ratio 1.4 01/30/17 07:00 WBC RBC Hgb Hct MCV MCH MCHC RDW Plt Count MPV Gran % Lymph % (Auto) [place] % (Auto) Eos % (Auto) Baso % (Auto) Gran # Lymph # [place] # Eos # Baso # ESR 56 H Retic Count 2.21 H Sodium Potassium Chloride Carbon Dioxide Anion Gap BUN Creatinine Est GFR ( Amer) Est GFR (Non-Af Amer) Random Glucose Calcium Phosphorus Total Bilirubin AST ALT Alkaline Phosphatase Total Protein Albumin Globulin Albumin/Globulin Ratio Assessment & Plan - Assessment and Plan (Free Text) Assessment: ASSESSMENT: Anemia, r/o GI bleed, PUD, angiodyslasia, varices Acute on chronic anemia H/O etoh HTN ESRD, on hemodialysis Pancreatic body hypodensity,, likely benign PLAN: clear liquid prep for EGD/colon 01/31/17, disuss w/ patient who agree PPI NPO 12 midnight except meds consider ct scan FU of pancreatic hypodensity labs in am: cbc/cmp Thank you for this consult and for allowing us to participate in your patient care, further recommendation based upon clinical course. Seen and discussed w/ Dr. Robles. <Leslie Robles V - Last Filed: 01/31/17 01:15> Meds - Medications Medications: Current Medications Amlodipine Besylate (Norvasc) 5 mg PO DAILY [facility] Last Admin: 12/07/17 10:56 Dose: 5 mg Calcium Acetate (Phoslo) 667 mg PO WM [facility] Last Admin: 01/30/17 18:33 Dose: Not Given Carvedilol (Coreg) 6.25 mg PO BID [facility] Last Admin: 01/30/17 18:31 Dose: Not Given Cinacalcet (Sensipar) 30 mg PO DAILY [facility] Last Admin: 01/30/17 10:55 Dose: 30 mg Darbepoetin Jarred (Aranesp) 60 mcg IVP ONCE ONE Stop: 01/31/17 10:01 Valsartan (Diovan) 320 mg PO DAILY [facility] Last Admin: 01/30/17 13:15 Dose: Not Given Results - Vital Signs Recent Vital Signs: Last Vital Signs Temp 98.6 F 01/30/17 09:03 Pulse 83 01/30/17 18:31 Resp 19 01/30/17 09:03 BP 145/82 01/30/17 18:31 Pulse Ox 95 01/30/17 09:03 - Labs Result Diagrams: 01/30/17 06:30 01/30/17 06:30 Labs: Laboratory Results - last 24 hr 01/30/17 01/30/17 01/30/17 06:30 06:30 07:00 WBC 7.3 RBC 2.88 L Hgb 9.4 L Hct 29.2 L MCV 101.4 D MCH 32.6 MCHC 32.2 RDW 17.8 H Plt Count 193 MPV 8.2 Gran % 73.1 H Lymph % (Auto) 14.6 L [place] % (Auto) 7.9 H Eos % (Auto) 3.6 Baso % (Auto) 0.8 Gran # 5.31 Lymph # 1.1 L [place] # 0.6 Eos # 0.3 Baso # 0.06 ESR Retic Count Sodium 137 Potassium 5.7 H* D Chloride 93 L Carbon Dioxide 29 Anion Gap 21 H BUN 35 H Creatinine 7.4 H* D Est GFR ( Amer) 9 Est GFR (Non-Af Amer) 8 Random Glucose 90 Calcium 9.3 Phosphorus 5.6 H Total Bilirubin 0.5 AST 32 ALT 27 Alkaline Phosphatase 61 Total Protein 6.8 Albumin 4.0 Globulin 2.8 Albumin/Globulin Ratio 1.4 01/30/17 07:00 WBC RBC Hgb Hct MCV MCH MCHC RDW Plt Count MPV Gran % Lymph % (Auto) [place] % (Auto) Eos % (Auto) Baso % (Auto) Gran # Lymph # [place] # Eos # Baso # ESR 56 H Retic Count 2.21 H Sodium Potassium Chloride Carbon Dioxide Anion Gap BUN Creatinine Est GFR ( Amer) Est GFR (Non-Af Amer) Random Glucose Calcium Phosphorus Total Bilirubin AST ALT Alkaline Phosphatase Total Protein Albumin Globulin Albumin/Globulin Ratio Attending/Attestation - Attestation I have personally seen and examined this patient.: Yes I have fully participated in the care of the patient.: Yes I have reviewed all pertinent clinical information: Yes Notes (Text): This is an addendum to GI progress report dictated by Ya Mejia APN.The patient was seen and examined earlier. Medical records, lab studies, imagings were reviewed. Last 24 hours events reviewed. Agreed with the above treatment plan as outlined in Ya Mejia APN's notes the with the addition of the following severe anemia and drop in blood count End-stage renal disease Discussed with the patient regarding EGD and colonoscopy agreed I was called by Nurse later that patient was reluctant to take the bowel preparation Discussed with patient at length personally in the evening patient finally agreed to take the bowel preparation patient is scheduled for EGD and colonoscopy Discussed with Dr. Hugh cook 01/31/17 01:10
--- NOTE | 2017-01-31 00:31 | CON ---
DATE: 01/30/2017 REASON FOR CONSULTATION: Hyperkalemia, severe anemia, ESRD. HISTORY OF PRESENT ILLNESS: A 56-year-old male known to me from outpatient hemodialysis. The patient has had issues with hyperkalemia for a while now. He has also been anemic. He has been urged multiple times as outpatient to see GI. Suspect he has some chronic GI blood loss. This might be contributing to his hyperkalemia. The patient presented to the emergency room after dialysis yesterday because of potassium of 7.5 and hemoglobin of 7.2 done on outpatient labs. The patient is a poor historian. He denies any abdominal pain. He denies any nausea, vomiting. He denies any constipation. He does admit to dark stools. He also complains of severe itching. He has multiple shallow ulcers on his back that bleeds. In the emergency room, he was found to have a hemoglobin of 7.7. His potassium was 3.6 after a full dialysis treatment. Today's potassium is 5.7. He received 2 units of blood yesterday. 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 Hypertension, cardiomyopathy, secondary hyperparathyroidism, anemia. FAMILY HISTORY: Noncontributory. SOCIAL HISTORY: Active smoking, no alcohol use, no IV drug abuse. ALLERGIES: NO KNOWN DRUG ALLERGIES. MEDICATIONS: PhosLo, Exforge 10/. The patient is supposed to be on Sensipar, which he is probably not taking. REVIEW OF SYSTEMS: All systems are reviewed, pertinent positives as mentioned in the history of presenting illness, rest unremarkable. PHYSICAL EXAMINATION: GENERAL: Middle-aged male, lying in bed, in no acute distress. VITAL SIGNS: Blood pressure 154/97, heart rate 86, respiratory rate 19, temperature 98.6. HEENT: Normocephalic, atraumatic. NECK: Supple, no JVD. LUNGS: Bilateral equal air entry, bilateral rhonchi, no rales. CARDIAC: S1, S2. Regular rate and rhythm. No murmur, no rub. ABDOMEN: Soft, nondistended, nontender, bowel sounds present. EXTREMITIES: No lower extremity edema. SKIN: Multiple punched-out ulcers on his back. INTAKE AND OUTPUT: Not charted. LABORATORY DATA: WBC 7.3, hemoglobin 9.4, hematocrit 29, platelets 193. Sodium 137, potassium 5.7, chloride 93, CO2 of 29, BUN 35, creatinine 7.4, glucose 90, calcium 9.3. AST 32, ALT 27, albumin 4.0. CURRENT MEDICATIONS: Altace 2.5, Aranesp 60, Coreg 6.25 b.i.d., amlodipine 5, PhosLo 667, cinacalcet. ASSESSMENT/PLAN: 1. Severe hypertension, the patient was on Exforge at home. We will discontinue Altace and start him on valsartan 320 mg daily along with amlodipine 5. 2. Severe anemia, suspect gastrointestinal blood loss. Gastroenterology evaluation underway. 3. Hematology evaluation. 4. Hyperkalemia, dialysis again today. 5. Severe secondary hyperparathyroidism, continue Sensipar 30 mg daily, check intact PTH levels. 4. Hyperphosphatemia, check phosphorus. Thank you for the courtesy of this consultation. We will follow this patient closely with you. Deidra Gomez MD
[2017-01-31 07:26] LABS: BASO # 0.09 K/mm3 (0.0-2.0); BASO % 1.1 % (0.0-3.0); EOS # 0.3 (0.0-0.7); EOS % 3.3 % (1.5-5.0); GRAN # 6.05 (1.4-6.5); GRAN % 75.1 % (50.0-68.0); HEMATOCRIT 31.6 % (42.0-52.0); LYMPH # 1.1 (1.2-3.4); LYMPH % 13.9 % (22.0-35.0); MEAN CELL VOLUME 102.3 fl (80.0-105.0); MEAN CORPUSCULAR HEMOGLOBIN 32.4 pg (25.0-35.0); MEAN CORPUSCULAR HGB CONC 31.6 g/dl (31.0-37.0); MEAN PLATELET VOLUME 8.7 fl (7.0-11.0); MONO # 0.5 (0.1-0.6); MONO % 6.6 % (1.0-6.0); RED CELL DISTRIBUTION WIDTH 16.9 % (11.5-14.5); WHITE BLOOD COUNT 8.1 10^3/ul (4.5-11.0)
[2017-01-31] MEDS ORDERED: Bisacodyl 5mg EC Tab PO ONE (07:34)
[2017-01-31 07:55] LABS: IRON 42 ug/dL (45-180)
[2017-01-31 08:01] LABS: ALB/GLOB RATIO 1.4 (1.1-1.8); BILIRUBIN,TOTAL 0.4 mg/dL (0.2-1.3); CALCIUM 9.5 mg/dL (8.4-10.5); POTASSIUM 4.8 mmol/L (3.6-5.0); TOTAL PROTEIN 7.5 g/dL (5.8-8.3)
[2017-01-31] MEDS ORDERED: Darbepoetin Alfa 60 mcg/ml Inj IVP ONE (10:00)
[2017-01-31] MEDS ORDERED: Lidocaine 2% Inj (20ml) ONE (10:26)
[2017-01-31] MEDS ORDERED: Iodixanol 320 mg/ml 150 ml Bottle IV ONE (10:26)
[2017-01-31] MEDS ORDERED: Midazolam 2 MG/2 ML VIAL ONE (10:32)
[2017-01-31] MEDS ORDERED: Nitroglycerin 50mg in D5W 50 MG/250 ML BOTTLE IV ONE (10:33)
--- NOTE | 2017-01-31 10:41 | CON ---
DATE: 01/31/2017 REASON FOR CONSULTATION: Severe anemia. CONSULT REQUESTED BY: Dr. Reese. HISTORY OF PRESENT ILLNESS: Mr. Del Cid is a 56-year-old male admitted to the hospital with hemoglobin of 7. He does report history of dark colored stools for the past few days. He received 2 units of blood transfusion. He also has end-stage renal disease, currently on hemodialysis. He received one dose of Aranesp 60 mcg yesterday. He is complaining of abdominal discomfort. No nausea. No vomiting. He is complaining of weakness, fatigue, tired, and no dizziness. PAST MEDICAL HISTORY: 1. End-stage renal disease, on hemodialysis. 2. Hypertension. 3. Chronic anemia. 4. Chronic pain. PAST SURGICAL HISTORY: Fistula placement for hemodialysis. ALLERGIES: NO KNOWN DRUG ALLERGIES. MEDICATIONS: Protonix, ramipril 5 mg twice a day, PhosLo 667 three times a day, Coreg 6.25 twice a day, Sensipar 30 mg daily, and digoxin 0.25 mg Friday, Friday, and Friday. PERSONAL HISTORY: Continues to smoke. History of drug abuse present. History of alcohol abuse in the past. SOCIAL HISTORY: Lives at home alone. FAMILY HISTORY: Noncontributory. REVIEW OF SYSTEMS: As per HPI. Rest of 12-point review of systems reviewed and negative. PHYSICAL EXAMINATION: GENERAL: Comfortable in bed, in no acute distress. Alert and oriented x3. VITAL SIGNS: Heart rate is 88 per minute, respiratory rate 15 per minute, blood pressure 150/80, and temperature 98.5. HEENT: Pallor positive. NECK: No lymphadenopathy. CHEST: Air entry present, equal bilaterally. No added sounds. CARDIOVASCULAR: S1 and S2 normal. No murmur. No gallop. ABDOMEN: Soft and nontender. No hepatosplenomegaly. CENTRAL NERVOUS SYSTEM: Awake, alert and oriented x3. No focal, sensory, or motor deficit. SKIN: No petechiae, no rash. LABORATORY DATA: White count 8.1, hemoglobin 10, hematocrit of 31.6, MCV 102.3, and platelets 227. Sodium 140, potassium 4.8, iron 42, and percentage saturation is 15. ASSESSMENT: 1. Severe anemia. 2. End-stage renal disease, on hemodialysis. 3. Hypertension. 4. History of dark color stool, possible gastrointestinal bleed. PLAN: He received 2 units of blood transfusion. Iron study ordered. Iron is 42% with saturation 15. Ferritin is pending. B12 and folate ordered, results still pending. We will order serum protein electrophoresis and immunofixation, light chain assay. He is scheduled for colonoscopy today to rule out GI blood loss. MCV is elevated at 106. He might have B12 deficiency. B12 level pending. He received one dose of Aranesp 60 mcg today. He will need continuation of erythropoietin. We will defer the recommendation once the results are available. We will recommend continuing Aranesp weekly. Followed by Dr. Gomez, Nephrology. Thank you Dr. Reese for allowing us to participate in Mr. Del Cid's care. Rere Mojica MD
[2017-01-31 12:48] LABS: FOLATE 19.8 ng/mL
--- NOTE | 2017-01-31 14:35 | VASCULAR ---
PROCEDURE: 1. Left upper extremity AV fistula angiogram HISTORY: End-stage renal disease. Malfunctioning AV access PHYSICIAN(S): Leland Aiken MD. TECHNIQUE: The relative risks and indications of the procedure were explained to the patient and consent obtained. The patient was placed supine on the angiography table and the left arm prepped and draped in usual sterile fashion. Conscious sedation and monitoring provided throughout the procedure by a nurse. The left arm AV fistula was punctured above the wrist in an antegrade direction with a micropuncture set. A 5 Bangl[place]hi catheter was placed. An overlapping left upper extremity AV fistula angiogram was performed. Central venous imaging was obtained. Pressure was applied near the access site and reflux of the arterial anastomosis performed. The catheter was removed and hemostasis obtained. FINDINGS: The patient's distal left radial - fistula is patent. There arterial anastomosis arterial anastomosis is widely patent. 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 There is a self expanding stent in the mid left forearm which is widely patent without re- stenosis. The well developed left cephalic fistula bifurcates at the elbow. Both the left cephalic vein and left basilic vein above the elbow are well developed and patent. The left axillary vein, left subclavian vein, left innominate vein, and SVC are patent. No central stenosis is appreciated. The fistula was marked with ultrasound IMPRESSION: 1. Patent and well developed left radial- cephalic fistula. 2. The course of the fistula was marked with ultrasound guidance. The stent was also marked.
[2017-01-31] MEDS ORDERED: Benzocaine/Butamben/Tetracai 14-2-2% TOP Spray TOP ONE (16:09)
[2017-01-31] MEDS ORDERED: Propofol 10 mg/ml Inj (20 ML) ONE (16:11)
[2017-01-31] MEDS ORDERED: Etomidate 20 mg/10ml Inj IV ONE ×2 (16:11→16:24)
--- NOTE | 2017-01-31 16:15 | PN ---
DATE: 01/31/2017 SUBJECTIVE: The patient is seen in the dialysis unit. He is awake. He is alert. He looks pale. He denies any headache or dizziness. He denies any shortness of breath. PHYSICAL EXAMINATION: GENERAL: Middle-aged male, sitting in dialysis unit. VITAL SIGNS: Blood pressure is 177/86, heart rate is 79, respiratory rate is 16, and temperature is 98.8. HEENT: Normocephalic, atraumatic. NECK: Supple, no JVD. LUNGS: Bilateral equal air entry, no rales. CARDIAC: S1 and S2. Regular rate, and rhythm. No murmur. No rub. ABDOMEN: Soft, nondistended, and nontender, bowel sounds present. EXTREMITIES: No lower extremity edema. INTAKE AND OUTPUT: 1140/ not charted. LABORATORY DATA: WBC 8, hemoglobin 10, hematocrit 32, and platelets 227. Sodium 140, potassium 4.8, chloride 92, CO2 30, BUN , creatinine 8.3, glucose , calcium 9.5, and phosphorus 5.6. Iron 42, iron saturation 15, ferritin 872, and albumin 4.4. CURRENT MEDICATIONS: Coreg, Diovan, Norvasc, PhosLo, and Sensipar. ASSESSMENT: 1. Severe anemia, suspect gastrointestinal blood loss. 2. Hypertension. 3. End-stage renal disease secondary to chronic glomerulonephritis, anti-GBM antibody disease. 4. Secondary hyperparathyroidism. 5. Hyperphosphatemia. 6. Noncompliance. 7. Nonobstructive coronary artery disease. PLAN: 1. Agree with plan for endoscopy and colonoscopy. 2. Monitor H and H. 3. Followup workup ordered by Hematology. 4. Stable dialysis treatment. Deidra Gomez MD
[2017-01-31] MEDS ORDERED: Simethicone 40 mg/0.6 ml Liquid (30 ml) ONE (17:00)
[2017-01-31] MEDS ORDERED: Sodium Chloride 0.9% 1,000 ML IV SCH (17:00)
[2017-01-31 17:37] VITALS: RESP 20
--- NOTE | 2017-01-31 22:13 | PN ---
DATE: SUBJECTIVE: The patient is 56-years old, seen and examined while in recovery, had fistulectomy done, . The patient is going for dialysis and then he will be getting endoscopy and colonoscopy. PHYSICAL EXAMINATION: GENERAL: He is awake, alert, and oriented, looks pale. VITAL SIGNS: Afebrile. Pulse 88, respirations 16, blood pressure 156/96. LUNGS: Bilateral fair airflow. No rhonchi or crackle. HEART: S1 and S2 audible. ABDOMEN: Soft and nontender. No rebound. No guarding. NEUROLOGIC: He is awake, alert, and oriented, able to communicate. LABORATORY DATA: WBC is 8.1, hemoglobin 10, hematocrit 31.6, and platelets of 227. Chemistry; sodium 140, potassium 4.8, chloride 92, CO2 of 37, BUN 20, and blood sugar of 94. ASSESSMENT AND PLAN: 1. Symptomatic anemia, status post blood transfusion. 2. Hypertension. 3. End-stage renal disease, on hemodialysis. 4. Active smoker. PLAN: As mentioned above, he will be maintained on carvedilol and Diovan, and he is going for dialysis today, then we will have endoscopy and colonoscopy. Valdemar Reese MD
[2017-02-01 01:01] LABS: TOTAL PROTEIN, SERUM 6.7 g/dL (6.1-8.1)
[2017-02-01 05:24] VITALS: O2SAT 94
[2017-02-01 08:20] VITALS: BP 161/94; PULSE 83; TEMP 97.9
--- NOTE | 2017-02-01 10:18 | PN ---
DATE: SUBJECTIVE: The patient is currently seen lying in bed comfortable. He is status post endoscopy and colonoscopy with no active bleeding source. The patient's hemoglobin is stabilized at 10.0. The patient is requesting to be discharged home. MEDICATIONS: Medication list reviewed. The patient is currently on Coreg, Diovan, Norvasc, PhosLo and Sensipar. OBJECTIVE INTAKE AND OUTPUT: Intake of 1140 and output ultrafiltration with hemodialysis. VITAL SIGNS: Blood pressure ranging from 151 to 161 systolic and diastolics 91 to 94. Pulse is 83, temperature is 97.9, and respiratory rate is 20. HEENT: Exam shows him to be normocephalic and atraumatic. Conjunctivae are pale. Sclerae nonicteric. NECK: Supple. No neck vein distention. CHEST: Clear to auscultation and percussion. No rales, no rhonchi, and no wheezing. CARDIOVASCULAR: Regular rate and rhythm without murmurs, rubs or gallops. Abdomen: Soft. Bowel sounds normal. No rebound or guarding. No masses. EXTREMITIES: Show no lower extremity cyanosis, clubbing or edema. The patient has a working AV fistula left upper extremity. LABORATORY DATA AND IMAGING STUDIES: Labs from yesterday, CBC; white blood cell count of 8.1, hemoglobin is stable at 10.0, and platelet count of 227,000. The patient is status post transfusion of 2 units packed red blood cells. Chemistries: Electrolytes are acceptable. BUN of 37 with a creatinine of 8.3. Iron saturations of 15% and the patient will continue IV Venofer with dialysis treatments. Serum protein electrophoresis is pending. B12 level was normal. Folic acid level was normal. ASSESSMENT: 1. Status post severe anemia. The patient is currently asymptomatic having received 2 units of packed red blood cells. The patient is interested in being discharged home as he feels back to baseline. 2. Hypertension. The patient will continue present medication, but compliance is an issue. 3. History of end-stage renal disease. The patient will continue Friday, Friday and Friday dialysis at [facility] upon discharge. 4. History of secondary hyperparathyroidism. The patient will continue Sensipar and binder therapy. 5. History of nonobstructive coronary artery disease, currently stable. PLAN. 1. As noted in the EMR. His endoscopy, colonoscopy identified and no bleeding source. 2. The patient will continue IV Venofer in the Outpatient Dialysis Unit, so the iron deficiency will likely be corrected. 3. Pending hematological workup will need to be reviewed as an outpatient. 4. From a Renal standpoint, the patient may be discharged home today. Josef Leon MD
--- NOTE | 2017-02-01 22:29 | DS ---
HISTORY OF PRESENT ILLNESS: The patient is a 56-year-old, seen and examined, lying in bed, seems to be comfortable. He thinks he is ready to go home. PHYSICAL EXAMINATION: VITAL SIGNS: He is afebrile, pulse 83, respirations 20, blood pressure 161/94. LUNGS: Bilateral fair airflow. No rhonchi or crackles. HEART: S1 and S2 audible. ABDOMEN: Soft, nontender, no rebound, no guarding. NEUROLOGIC: He is awake, alert, and communicative, ambulatory. LABORATORY DATA: WBC is 8.1, hemoglobin 10, hematocrit 31.6, platelets 227. Chemistry; sodium 140, potassium 4.8, chloride 92, CO2 30, BUN 37, creatinine 0.3. Blood sugar of 94. LFTs are within normal limits. The patient had endoscopy and colonoscopy done. He has esophageal and duodenal ulcer along with gastric ulcer and rectal polyp. ASSESSMENT: 1. Anemia, multifactorial. 2. Status post endoscopy showing gastric, duodenal and esophageal ulcer. 3. End-stage renal disease on hemodialysis status post blood transfusion. PLAN: The patient is being discharged home today. He was given prescription of Protonix. He will resume his medication as prior to admission. Valdemar Reese MD
[2017-02-04 02:00] LABS: KAPPA/LAMBDA FREE RATIO 1.45 (0.26-1.65)
[2017-02-04 07:31] LABS: BETA 1 GLOBULIN 0.4 g/dL (0.4-0.6); BETA 2 GLOBULIN 0.3 g/dL (0.2-0.5); GAMMA GLOBULIN 0.7 g/dL (0.8-1.7)
== END 2017-02-01 16:29 | disposition home or self-care (01) ==
LOC: ED 13:02 → ERH 15:30 → 5RSO 16:49
PROVIDERS: ADMIT Internal Medicine; ATTEND Internal Medicine
DX: D63.1 Anemia in chronic kidney disease (principal); E61.1 Iron deficiency; E83.39 Other disorders of phosphorus metabolism; E87.5 Hyperkalemia; F17.200 Nicotine dependence, unspecified, uncomplicated; G89.29 Other chronic pain; I12.0 Hypertensive chronic kidney disease with stage 5 chronic kidney disease or end stage renal disease; I25.10 Atherosclerotic heart disease of native coronary artery without angina pectoris; I42.9 Cardiomyopathy, unspecified; J44.9 Chronic obstructive pulmonary disease, unspecified; L29.9 Pruritus, unspecified; N03.9 Chronic nephritic syndrome with unspecified morphologic changes; N18.6 End stage renal disease; N25.81 Secondary hyperparathyroidism of renal origin; Z87.19 Personal history of other diseases of the digestive system; Z91.19 Patient's noncompliance with other medical treatment and regimen; Z99.2 Dependence on renal dialysis
CPT/HCPCS: 36415; 36430; 36901; 80053; 82607; 82728; 82746; 83540; 83550; 83690; 83883; 84100; 84155; 84165; 84484; 85025; 85044; 85610; 85651; 85730; 86334; 86850; 86900; 86920; 88305; 88342; 93005; 99152; 99285; C1760; C1769; G0378; J0881; J1644; J2001; J2250; J2704; J3010; J7040; P9016

== ENCOUNTER 2017-03-12 17:27 | Inpatient (IN) | payer MEDICARE, MEDICAID, OTHER ==
[2017-03-12 17:27] VITALS: PULSE 81
--- NOTE | 2017-03-12 18:26 | ED PDOC ---
Arrival/HPI - General Time Seen by Provider: 03/12/17 18:24 - History of Present Illness Narrative History of Present Illness (Text): 56 y/o M c PMHx ESRD on HD MWF sent to ED due to O2 sat 70s. Patient noted to be lethargic but denies chest pain, abd pain, fever. Full HPI/ROS unobtainable due to patient's condition. Past Medical History - Past History Past History: Non-Contributing - Infectious Disease Hx of Infectious Diseases: None - Tetanus Immunization Tetanus Immunization: Unknown - Cardiac Hx Cardiac Disorders: Yes Hx Hypertension: Yes Hx Pacemaker: No - Pulmonary Hx Respiratory Disorders: Yes Hx Bronchitis: Yes Hx Chronic Obstructive Pulmonary Disease (COPD): Yes - Neurological Hx Neurological Disorder: No - HEENT Hx HEENT Disorder: No Hx Blind: No Hx Cataracts: No Hx Deafness: No Hx Difficulty Chewing: No Hx Epistaxis: No Hx Glaucoma: No Hx Macular Degeneration: No - Renal Hx Dialysis: Yes Date of Last Dialysis Treatment: 01/29/17 Hx Renal Failure: Yes - Endocrine/Metabolic Hx Endocrine Disorders: No - Hematological/Oncological Hx Blood Transfusions: Yes (06/2013 [facility] [place]) Hx Blood Transfusion Reaction: No - Integumentary Hx Dermatological Disorder: No - Musculoskeletal/Rheumatological Hx Falls: No - Gastrointestinal Hx Gastrointestinal Disorders: No - Genitourinary/Gynecological Hx Genitourinary Disorders: No Other/Comment: oliguria - Psychiatric Hx Psychophysiologic Disorder: No Hx Emotional Abuse: No Hx Physical Abuse: No Hx Substance Use: No - Surgical History Other/Comment: Left forearm av fistula , r chest udall insertion and removal, excision throat cyst - Anesthesia Hx Anesthesia Reactions: No Hx Malignant Hyperthermia: No - Suicidal Assessment Feels Threatened In Home Enviroment: No Family/Social History Family/Social History: Unknown Family HX Smoking Status: Current Some Days Smoker Hx Alcohol Use: Yes Hx Substance Use: No Hx Substance Use Treatment: No Allergies/Home Meds Allergies/Adverse Reactions: Allergies No Known Allergies Allergy (Verified 03/12/17 18:41) Home Medications: Home Meds Medication Instructions Recorded Confirmed Calcium Acetate [Phoslo] 667 mg PO WM 01/18/16 01/29/17 Amlodipine/Valsartan [Amlodipine 1 tab PO DAILY 01/29/17 01/29/17 Besylate-Valsartan 10 mg-320 mg] Review of Systems - Review of Systems Systems not reviewed;Unavailable: Altered Mental Status Physical Exam - Physical Exam Narrative Physical Exam (Text): Constitutional: Lethargic. No acute distress. Head: Normocephalic. Atraumatic. Eyes: PERRL. ENT: Moist mucous membranes. Neck: Supple. Cardiovascular: Regular rate. Chest: No tenderness. Respiratory: Bilateral crackles. SpO2 drops to below 90 on room air. GI: Soft. Nontender. Nondistended. Back: No CVA tenderness. Musculoskeletal: No tenderness or swelling of extremities. Skin: No rash. Neurologic: Alert, no focal deficit. Vital Signs Temp Pulse Resp BP Pulse Ox 03/12/17 20:03 101.1 F H 03/12/17 18:50 102.1 F H 03/12/17 18:34 101.1 F H 102 H 20 158/82 H 96 Medical Decision Making ED Course and Treatment: CXR shows L lobe infiltrate. EKG NSR 97 bpm, no ST elevations. ST depressions laterally. Patient became much more alert in ED, awake, in no distress. Dr. Mojica accepts to her service and requests Dr. Bolivar and Dr. Quezada for consultation. Started on HCAP antibiotics. Lactate negative. - Lab Interpretations Lab Results: 03/12/17 19:54 03/12/17 19:54 Lab Results 03/12/17 20:04: Influenza Typ A,B (EIA) Negative for flu a/b 03/12/17 19:54: Sodium 138, Chloride 91 L, Potassium 4.2, Carbon Dioxide 33, Anion Gap 19, BUN 27 H, Creatinine 5.5 H, Est GFR ( Amer) 13, Est GFR ( Non-Af Amer) 11, Random Glucose 95, Calcium 9.5, Total Bilirubin 0.7, AST 39, ALT 45, Alkaline Phosphatase 86, Total Creatine Kinase 87, Troponin I 0.17 H* D , NT-Pro-B Natriuret Pep [id number] H, Total Protein 7.2, Albumin 4.1, Globulin 3.1 , Albumin/Globulin Ratio 1.3 03/12/17 19:54: pO2 180 H, VBG pH 7.52 H, VBG pCO2 48.0, VBG HCO3 39.2 H, VBG Total CO2 40.7 H, VBG O2 Sat (Calc) 97.9 H, VBG Base Excess 14.3 H, VBG Potassium 4.3, Sodium 140.0, Chloride 100.0, Glucose 98, Lactate 0.8, FiO2 21.0 , Venous Blood Potassium 4.3 03/12/17 19:54: PT 12.4, INR 1.09 H, APTT 30.6 03/12/17 19:54: WBC 6.8, RBC 2.64 L, Hgb 8.7 L, Hct 27.4 L, MCV 103.8, MCH 33.0 , MCHC 31.8, RDW 16.8 H, Plt Count 204, MPV 8.6, Gran % 83.3 H, Lymph % (Auto) 7.6 L, [place] % (Auto) 7.2 H, Eos % (Auto) 0.7 L, Baso % (Auto) 1.2, Gran # 5.67, Lymph # 0.5 L, [place] # 0.5, Eos # 0.1, Baso # 0.08 - RAD Interpretation Radiology Orders: 03/12/17 18:42 CHEST PORTABLE [RAD] Stat - Medication Orders Current Medication Orders: Cefepime HCl (Maxipime 1gm) 1 gm in 100 mls @ 100 mls/hr IVPB Q24H MARK PRN Reason: Protocol Last Admin: 03/12/17 21:28 Dose: 100 mls/hr eMAR Start Stop Document 03/12/17 21:28 OCS (Rec: 03/12/17 21:28 OCS [facility] [id number]) Intravenous Solution Start Date 03/12/17 Start Time 21:28 End Date 03/12/17 End time 22:28 Total Infusion Time 60 Discontinued Medications Acetaminophen (Tylenol 325mg Tab) 650 mg PO STAT STA Stop: 03/12/17 18:43 Last Admin: 03/12/17 20:03 Dose: 650 mg MAR Pain/Vitals Document 03/12/17 20:03 OCS (Rec: 03/12/17 20:04 OCS [facility] [id number]) Pain Reassessment Is This A Pain ReAssessment? No Sleep Is patient sleeping during reassessment? No Vitals Temperature (97.6 F-99.6 F) 101.1 F Temperature Source Oral Aspirin (Aspirin) 325 mg PO STAT STA Stop: 03/12/17 21:19 Last Admin: 03/12/17 22:33 Dose: 325 mg Levofloxacin/Dextrose (Levaquin 750mg) 750 mg in 150 mls @ 100 mls/hr IVPB STAT STA PRN Reason: Protocol Stop: 03/12/17 21:39 Last Admin: 03/12/17 22:32 Dose: 100 mls/hr eMAR Start Stop Document 03/12/17 22:32 OCS (Rec: 03/12/17 22:33 OCS [facility] [id number]) Intravenous Solution Start Date 03/12/17 Start Time 22:33 End Date 03/12/17 Vancomycin HCl (Vancomycin 1gm) 1 gm in 250 mls @ 167 mls/hr IVPB STAT STA PRN Reason: Protocol Stop: 03/12/17 21:39 Disposition/Present on Arrival - Present on Arrival Any Indicators Present on Arrival: No History of DVT/PE: No History of Uncontrolled Diabetes: No Urinary Catheter: No History Surgical Site Infection Following: None - Disposition Have Diagnosis and Disposition been Completed?: Yes Diagnosis: Pneumonia, Elevated troponin Disposition: HOSPITALIZED Disposition Time: 20:10 Patient Plan: Admission Condition: GUARDED Referrals: Deidra Gomez MD [Primary Care Provider] - Follow up with primary
[2017-03-12] MEDS ORDERED: levoFLOXacin 750 mg in D5W 750 MG/150 ML BAG IVPB STA (20:10)
[2017-03-12] MEDS ORDERED: Vancomycin 1gm in NS 250ml 1 GM/250 ML BAG IVPB STA (20:10)
[2017-03-12 20:15] LABS: VENOUS BLOOD GAS BASE EXCESS 14.3 mmol/L (0.0-2.0); VENOUS BLOOD GAS PO2 180 mm/Hg (30-55); VENOUS BLOOD PH 7.52 (7.32-7.43)
[2017-03-12 20:23] LABS: ALB/GLOB RATIO 1.3 (1.1-1.8); ALBUMIN 4.1 g/dL (3.0-4.8); CALCIUM 9.5 mg/dL (8.4-10.5)
[2017-03-12 20:24] LABS: INR 1.09 (0.93-1.08); PROTHROMBIN TIME 12.4 SECONDS (9.4-12.5)
[2017-03-12 20:25] LABS: PARTIAL THROMBOPLASTIN TIME 30.6 Seconds (25.1-36.5)
[2017-03-12 20:28] LABS: BASO # 0.08 K/mm3 (0.0-2.0); BASO % 1.2 % (0.0-3.0); EOS # 0.1 (0.0-0.7); EOS % 0.7 % (1.5-5.0); GRAN # 5.67 (1.4-6.5); GRAN % 83.3 % (50.0-68.0); HEMOGLOBIN 8.7 g/dL (14.0-18.0); LYMPH # 0.5 (1.2-3.4); LYMPH % 7.6 % (22.0-35.0); MEAN CELL VOLUME 103.8 fl (80.0-105.0); MEAN CORPUSCULAR HGB CONC 31.8 g/dl (31.0-37.0); MEAN PLATELET VOLUME 8.6 fl (7.0-11.0); MONO # 0.5 (0.1-0.6); MONO % 7.2 % (1.0-6.0); RBC 2.64 10^6/uL (3.5-6.1); RED CELL DISTRIBUTION WIDTH 16.8 % (11.5-14.5); WHITE BLOOD COUNT 6.8 10^3/ul (4.5-11.0)
[2017-03-12 21:05] LABS: TROPONIN I 0.17 ng/mL
[2017-03-12] MEDS: Cefepime 1gm in NS 100ml 1 GM/100 ML BAG IVPB SCH (21:28)
[2017-03-13 03:26] VITALS: BMI 22.1
[2017-03-13] MEDS: Pantoprazole 40 mg EC Tab PO SCH (05:33)
[2017-03-13 07:09] LABS: BASO # 0.05 K/mm3 (0.0-2.0); BASO % 0.7 % (0.0-3.0); EOS # 0.1 (0.0-0.7); EOS % 1.4 % (1.5-5.0); GRAN # 6.48 (1.4-6.5); GRAN % 84.8 % (50.0-68.0); LYMPH # 0.5 (1.2-3.4); LYMPH % 5.9 % (22.0-35.0); MEAN CELL VOLUME 104.5 fl (80.0-105.0); MEAN CORPUSCULAR HEMOGLOBIN 32.4 pg (25.0-35.0); MEAN PLATELET VOLUME 8.5 fl (7.0-11.0); MONO # 0.6 (0.1-0.6); MONO % 7.2 % (1.0-6.0); RBC 2.44 10^6/uL (3.5-6.1); RED CELL DISTRIBUTION WIDTH 16.6 % (11.5-14.5); WHITE BLOOD COUNT 7.6 10^3/ul (4.5-11.0)
[2017-03-13 07:59] LABS: TROPONIN I 0.28 ng/mL
[2017-03-13 08:26] LABS: CALCIUM 9.2 mg/dL (8.4-10.5)
[2017-03-13 08:32] LABS: HEMOGLOBIN 7.9 g/dL (14.0-18.0)
--- NOTE | 2017-03-13 08:33 | RAD ---
HISTORY: fever COMPARISON: 01/12/2017 FINDINGS: LUNGS: There is a dense focal infiltrate in the left upper lobe consistent with pneumonia PLEURA: No significant pleural effusion identified, no pneumothorax apparent. CARDIOVASCULAR: Normal. OSSEOUS STRUCTURES: No significant abnormalities. VISUALIZED UPPER ABDOMEN: Normal. OTHER FINDINGS: None. IMPRESSION: Dense focal infiltrate in the left upper lobe consistent with pneumonia
[2017-03-13] MEDS ORDERED: AMLODIPINE PO SCH (10:00)
[2017-03-13] MEDS ORDERED: VALSARTAN PO SCH (10:00)
[2017-03-13] MEDS ORDERED: Albuterol-Ipratrop 3 mg / 0.5 (3 ml) UD IH PRN (10:15)
--- NOTE | 2017-03-13 11:35 | CARD ---
APPROVED REPORT EKG Measurement Heart [id number] OR 160P64 [id number] <Conclusion> Normal sinus rhythm Possible Left atrial enlargement Left ventricular hypertrophy STTW changes c/w ischemia, increased c/w ECG 01/29/17 Prolonged QTc
[2017-03-13] MEDS ORDERED: Albuterol-Ipratrop 3 mg / 0.5 (3 ml) UD IH SCH (14:00)
[2017-03-13] MEDS: Arformoterol 15 mcg/2 ml Inh Sol IH SCH (20:51)
[2017-03-13 20:52] LABS: COMPLEMENT C4 33.2 mg/dL (14.0-44.0)
[2017-03-13] MEDS: Cefepime 1gm in NS 100ml 1 GM/100 ML BAG IVPB SCH (23:03)
--- NOTE | 2017-03-14 01:40 | CON ---
DATE: 03/13/2017 REASON FOR CONSULTATION: Cardiac evaluation, end-stage renal disease, borderline troponin positive, admitted with generalized body pain and lethargy after dialysis. BRIEF CLINICAL HISTORY: This is a 53-year-old male with past medical history significant for cardiomyopathy of non-ischemic, history of cardiac catheterization in the past, non-ischemic cardiomyopathy, with decreased LV function with ejection fraction of 30 to 35%, end-stage renal disease, on dialysis 3 to 4 years, after dialysis patient is very weak, lethargic, and whole body is aching, so patient came to the Emergency Room. Denies any chest pain. Denies any specific chest pain or shortness of breath or palpitations or dyspnea on exertion. PAST MEDICAL HISTORY: Significant for end-stage renal disease, on dialysis, history of non-ischemic cardiomyopathy, cardiac catheterization in 2013. Since 2013, patient had end-stage renal disease, on dialysis. Positive secondary to chronicity of glomerulonephritis, end stage renal disease and dialysis started on 07/2013. Ejection fraction is low. Patient has multiple types of cardiac catheterization scheduled. Patient signed out AMA. [id number] tricuspid regurgitation. RV systolic pressure of 47. Last catheterization was done on 11/22/2013 by me that revealed non-ischemic cardiac ejection fraction 30 to 35%. Last echo was done in 2013 and that showed ejection fraction 35 to 40%, global hypokinesis, diastolic function is normal. Left atrial pressure is moderately elevated, trace aortic regurgitation, mitral regurgitation is moderate, moderate tricuspid regurgitation, trace circumferential pericardial effusion dated 08/2013. Previous cardiac workup, status post cardiac catheterization as mentioned, 11/22/2013, that is normal coronaries. Last echo as mentioned above. CURRENT MEDICATIONS: Patient is taking at home ranitidine, propranolol, calcium acetate, amlodipine, valsartan. REVIEW OF SYSTEMS: As per HPI. PHYSICAL EXAMINATION: VITAL SIGNS: Temperature afebrile, heart rate 80, blood pressure 128/80. HEENT: PERRLA intact. NECK: Supple. No carotid bruits. No thyromegaly. CHEST: Clear to auscultation. HEART: S1, S2. Regular. ABDOMEN: Soft. EXTREMITIES: Clubbing and cyanosis negative. LABORATORY DATA: Blood workup as follows. WBC 7.3, hemoglobin 7.9, hematocrit 25.5, platelet count 208. Chemistry shows sodium 141, potassium 4.5, chloride 92, carbon dioxide 31, anion gap of 23, BUN 39, creatinine 0.5. Troponin is 0.17. IMPRESSION: A 56-year-old male with past medical history significant for end-stage renal disease secondary to glomerulonephritis, hypertension, noncompliance with medication, admitted, after having dialysis, all of the body aching. Cardiology consult was called. Patient has a troponin 0.17, repeated 0.28. Last catheterization in 10/2013 essentially normal coronaries, preserved LV function. Last echo shows decreased LV function 35%, [id number] tricuspid regurgitation. RECOMMENDATIONS: We will get lipid profile, TSH, hemoglobin A1c, followup serial CPK, troponin. Echo to assess LV function. We will follow the troponin's. If troponin trends up, consider cardiac cath, otherwise, we will treat medically. Most likely this elevated troponin is secondary to stretching of the myocardium because of the congestive heart failure. Patient admitted with 106,000 BNP. We will follow up with you. Thank you Dr. Mojica for providing us the opportunity in taking care of the patient, Nehemias Dai. We will follow with you. Chas Bolivar MD
--- NOTE | 2017-03-14 02:59 | CON ---
DATE: 03/13/2017 REASON FOR CONSULTATION: 1. End-stage renal disease and severe hypertension. 2. Severe anemia. HISTORY OF PRESENT ILLNESS: This 56-year-old male known to me from outpatient hemodialysis was sent to the Emergency Room post dialysis yesterday because the patient was lethargic, almost unresponsive. He appeared very pale. In the Emergency Room, he was found to have blood pressure of 158/82, heart rate was 102 and he had a temperature of 101. His T-max was 102. Chest x-ray revealed focal infiltrate in the left upper lobe consistent with pneumonia. The patient is a poor historian. He reports that he had been coughing, but he has not had any phlegm. He denied any fever at home.. He reports extreme fatigue at the end of dialysis yesterday. PAST MEDICAL AND SURGICAL HISTORY: Severe hypertension, anti-GBM disease, end-stage renal disease, CAD, peritonitis, dental infection, severe anemia, GI bleed, and malnutrition. FAMILY HISTORY: Hypertension. SOCIAL HISTORY: Active smoker, active alcohol user, and no drug abuse. ALLERGIES: NO KNOWN DRUG ALLERGIES. MEDICATIONS: Zantac 75, Protonix, PhosLo and Exforge 10/320. REVIEW OF SYSTEMS: All systems are reviewed, pertinent positives as mentioned in the history of presenting illness, rest unremarkable. PHYSICAL EXAMINATION: GENERAL: Cachectic middle-aged male in poor condition VITAL SIGNS: Blood pressure is 128/82, heart rate is 82, respiratory rate is 20, and temperature is 97.9. HEENT: Normocephalic and atraumatic. Positive pallor. NECK: Supple and no JVD. LUNGS: Bilateral equal entry, bilateral equal expansion, and crackles left side? CARDIAC: S1 and S2. Regular rate and rhythm. No murmur and no rub. ABDOMEN: Soft, distended, and nontender. Bowel sounds are present. EXTREMITIES: No lower extremity edema. SKIN: The patient has multiple shallow ulcers on his back, excoriated ulcers. LABORATORY DATA: WBC of 7.6, hemoglobin of 7.9, hematocrit of 25.5, and platelets of 208. Sodium of 141, potassium of 4.5, chloride of 92, CO2 of 31, BUN of 39, and creatinine of 7.5. Glucose of 89 and calcium of 9.2. Troponin of 0.17. Repeat troponin of 0.28. BNP of 10,600. Albumin of 4.1. Influenza serology negative. CURRENT MEDICATIONS: Brovana, Diovan 320, DuoNeb, Maxipime 1 g daily, amlodipine 10, PhosLo, and Protonix. The patient got one dose of Levaquin 750 in the ER yesterday and he also got vancomycin 1 gram. ASSESSMENT AND PLAN: 1. Left upper lobe pneumonia. 2. Severe anemia, recent severe gastrointestinal bleed, recent endoscopy showing nonbleeding ulcers. 3. Hypertension. 4. History of anti-glomerular basement membrane antibody disease. 5. End-stage renal disease. 6. Secondary hyperparathyroidism. 7. Poor compliance of medical followup/medications. PLAN 1. Pancultures. 2. Antibiotics as per ID recommendations. 3.. ID evaluation. 4. Vasculitis workup again? 5. Monitor hemoglobin and hematocrit. 6. Check stool occults. 7. P.r.n. GI evaluation. 8. Continue PPI. Thank you for the courtesy of this consultation. We will follow this patient closely with you. Deidra Gomez MD
[2017-03-14] MEDS: Pantoprazole 40 mg EC Tab PO SCH (05:08)
--- NOTE | 2017-03-14 05:53 | CON ---
DATE: 03/13/2017. CHIEF COMPLAINT: Patient admitted with pulmonary symptoms and weakness times several days. HISTORY OF PRESENT ILLNESS: This is a 56-year-old male with chronic renal failure on hemodialysis, coronary artery disease, hypertension, congestive heart failure, continues to be an active smoker with a history of left groin fistula, cardiac stents was admitted to the emergency room with diagnosis of pneumonia and elevated troponins . The patient was admitted to the emergency room and seen by Dr. David Conroy and complained of weakness. No abdominal pain, diarrhea or constipation. No bright red blood per rectum, no melena. PAST MEDICAL HISTORY: Significant for chronic renal failure on hemodialysis, coronary artery disease, hypertension, congestive heart failure, chronic obstructive lung disease, anemia, cardiac arrhythmias. PAST SURGICAL HISTORY: Significant for left groin fistula and cardiac catheterization. ALLERGIES: THE PATIENT HAS NO KNOWN ALLERGIES. MEDICATIONS: At home include ranitidine, amlodipine, valsartan. PHYSICAL EXAMINATION: GENERAL: The patient is in bed. VITAL SIGNS: Temperature of 97, T-max is 102.1, respiratory rate of 20 it was up to 22, pulse of blood pressure 120/80, saturation is 98%. HEENT: Unremarkable. NECK: Supple. LUNGS: Decreased breath sounds. HEART: Normal S1 and S2. ABDOMEN: Soft, nontender. LABORATORY DATA: Reveals a white count of 6.8, hemoglobin of 8, platelets of 204. Chemistries revealed a BUN of 27, creatinine of 5.5, troponin is elevated at 0.17, 0.28, BNP is 106,000. Serology influenza is negative. Chest x-ray as noted. EKG revealed the patient has 495 QTc. ASSESSMENT AND PLAN: This is a 56-year-old male with chronic renal failure on hemodialysis, coronary artery disease, hypertension, congestive heart failure, chronic obstructive pulmonary disease, anemia with sepsis with a healthcare associated left upper lobe pneumonia and non-ST elevation myocardial infraction with nonspecific ST changes and elevated tropponins. Dr. Bolivar from cardiology consultation is already on the case. The patient started on cefepime, was given a dose of vancomycin, we will add doxycycline. We will also order a procalcitonin and check on the cultures. We will treat the patient with Maxipime, doxycycline. Check on the blood cultures, sputum cultures, and a procalcitonin. The patient had an HIV test that was negative in June of 2014. We will follow closely with you. Gary Quezada MD
[2017-03-14 06:30] LABS: BASO # 0.05 K/mm3 (0.0-2.0); BASO % 0.8 % (0.0-3.0); EOS # 0.2 (0.0-0.7); EOS % 2.9 % (1.5-5.0); GRAN # 5.03 (1.4-6.5); GRAN % 77.8 % (50.0-68.0); LYMPH # 0.7 (1.2-3.4); LYMPH % 11.5 % (22.0-35.0); MEAN CELL VOLUME 101.2 fl (80.0-105.0); MEAN CORPUSCULAR HEMOGLOBIN 32.9 pg (25.0-35.0); MEAN CORPUSCULAR HGB CONC 32.5 g/dl (31.0-37.0); MEAN PLATELET VOLUME 8.6 fl (7.0-11.0); MONO # 0.5 (0.1-0.6); RBC 2.43 10^6/uL (3.5-6.1); RED CELL DISTRIBUTION WIDTH 16.1 % (11.5-14.5); WHITE BLOOD COUNT 6.5 10^3/ul (4.5-11.0)
[2017-03-14 07:26] LABS: ALB/GLOB RATIO 1.3 (1.1-1.8); CALCIUM 9.7 mg/dL (8.4-10.5); MAGNESIUM 2.5 mg/dL (1.7-2.2); TROPONIN I 0.17 ng/mL
[2017-03-14] MEDS ORDERED: Darbepoetin Alfa 100 mcg/ml Inj IVP ONE (07:55)
[2017-03-14] MEDS: Arformoterol 15 mcg/2 ml Inh Sol IH SCH ×2 (09:57→21:06)
--- NOTE | 2017-03-14 13:43 | PN ---
DATE: 03/14/2017 REASON FOR CONSULTATION: Cardiac evaluation, end-stage renal disease, borderline positive troponin, admitted with generalized pain and lethargy after dialysis. SUBJECTIVE: The patient denies any chest pain or shortness of breath any palpitation. Seen in dialysis having dialysis. OBJECTIVE: GENERAL: Not in apparent distress. Hemodynamically stable. VITAL SIGNS: Temperature afebrile, heart rate 86, blood pressure 127/60. HEENT: PERRLA intact. NECK: Supple. No carotid bruits or thyromegaly. CHEST: Clear to auscultation. HEART: S1 and S2 regular. ABDOMEN: Soft. EXTREMITIES: Clubbing and cyanosis negative. LABORATORY DATA: Blood workup as follows; WBC , hemoglobin 8, hematocrit 24.6, and platelet count 198. Chemistry shows sodium 137, potassium 5.5, chloride 92, carbon dioxide 29, anion gap of 22, BUN , creatinine 0.17. IMPRESSION: Borderline troponin most likely secondary to renal insufficiency, end-stage renal disease stage 5, on dialysis. No complaint of chest pain. History of cardiac catheterization in 11/22/2013, normal coronaries and non-ischemic cardiomyopathy. History of end-stage renal disease secondary to glomerulonephritis. On dialysis 3 to 4 years, the patient had multiple types of cardiac catheterization done in the past, but signed out. Ultimately, patient had a cardiac catheterization on 11/22/2013, normal coronaries and non-ischemic cardiomyopathy. Last echo in 2013, ejection fraction 35%-40%, diastolic dysfunction. RECOMMENDATION: We will get echo to assist left ventricular function, continue dialysis. We will DC telemetry. No further cardiac workup is planned except echo. Once echo is done, patient remained stable, okay to be discharged. Borderline troponin is most likely secondary to end-stage renal disease. Nonspecific pain all over the body and no cardiac complaint and no chest pain. Thank you Dr. Mojica for providing us the opportunity in taking care of the patient, Suhas Del Cid. Chas Bolivar MD
--- NOTE | 2017-03-14 16:53 | CARD ---
APPROVED REPORT EXAM: Two-dimensional and M-mode echocardiogram with Doppler and color Doppler. INDICATION 2D DIMENSIONS IVSd1.8 (0.7-1.1cm)LVDd6.3 (3.9-5.9cm) PWd1.6 (0.7-1.1cm)LVDs5.5 (2.5-4.0cm) FS (%) 12.0 %LVEF (%)25.8 (>50%) M-Mode DIMENSIONS Left Atrium (MM)4.70 (2.5-4.0cm)Aortic Root3.40 (2.2-3.7cm) Aortic Cusp Exc.2.00 (1.5-2.0cm) Aortic Valve AoV Peak Sypmgvdb908.0cm/Concepcion Peak GR.28mmHg Mitral Valve MV E Svbdkpfk298.0cm/sMV A Ywkejqbh990.0cm/sE/A ratio1.2 TDI Lateral E' Peak V6.14cm/sMedial E' Peak V4.09cm/sE/Lateral E'30.6 E/Medial E'46.0 Tricuspid Valve TR Peak Uxnwrsct366cd/sRAP [id number] Peak Gr.66mmHg [id number] LEFT VENTRICLE The Left Ventricle is borderline dilated. There is moderate concentric left ventricular hypertrophy. The systolic function is moderately impaired.EF-25% There is a flattened septum consistent with right ventricle volume and pressure overload. Transmitral Doppler flow pattern is Grade II-pseudonormal filling dynamics. No left ventricle thrombus noted on this study. There is no ventricular septal defect visualized. There is no left ventricular aneurysm. There is no mass noted in the left ventricle. RIGHT VENTRICLE The right ventricle is mildly dilated. The right ventricle is mildly hypertrophied. Systolic function is mildly to moderately reduced. ATRIA The left atrium is moderately dilated. The right atrium is moderately dilated. The interatrial septum is intact with no evidence for an atrial septal defect. AORTIC VALVE The aortic valve is calcified and displays decreased opening. There is trace aortic regurgitation. Possibly mild There is no aortic valvular vegetation. MITRAL VALVE The mitral valve is thickened but opens well. Mitral annular calcification is moderate. Mitral regurgitation is mild to moderate. There is no mitral valve stenosis. There is no evidence of mitral valve prolapse. TRICUSPID VALVE The tricuspid valve leaflets are thickened , but open well. There is moderate to severe tricuspid regurgitation.RVSP-76 mmof Hg. There is no tricuspid valve stenosis. There is no tricuspid valve prolapse or vegetation. PULMONIC VALVE The pulmonic valve is borderline thickened. There is trace to mild pulmonic valvular regurgitation. There is no pulmonic valvular stenosis. GREAT VESSELS The aortic root is normal in size. The ascending aorta is normal in size. The pulmonary artery is normal. The IVC is dilated. PERICARDIAL EFFUSION There is no pleural effusion. There is no pericardial effusion. <Conclusion> Four chamber dilatation C/W CMP, EF-25% There is trace aortic regurgitation. Mitral regurgitation is mild to moderate. There is moderate to severe tricuspid regurgitation.RVSP-76 mmof Hg. The IVC is dilated. There is no pericardial effusion. No vegetation noted.
--- NOTE | 2017-03-14 17:41 | PN ---
DATE: 03/14/2017 SUBJECTIVE: The patient is seen, lying in bed. Her is awake, he is alert, he is comfortable. He had dialysis earlier today. PHYSICAL EXAMINATION: GENERAL: Young male, lying in bed. Vital signs: Blood pressure 113/68, heart rate 87, respiratory rate 18, temperature 98.6. HEENT: Normocephalic, atraumatic, positive pallor. NECK: Supple, no JVD. LUNGS: Bilateral equal entry, no rales, crackles left base?. CARDIAC: S1, S2, regular rate and rhythm, no murmur, no rub. ABDOMEN: Soft, distended, nontender, bowel sounds present. EXTREMITIES: No lower extremity edema. INTAKE AND OUTPUT: Not charted. LABORATORY DATA: WBC 6.5, hemoglobin 8, hematocrit 24.6, platelets 198. Sodium 137, potassium 5.1, chloride 92, CO2 29, BUN 63, creatinine 10.4, glucose 102, calcium 9.7, phosphorus 6.3, magnesium 2.5, A1c 4.7, AST 37, ALT 32, troponin 0.17, albumin 4.0. Blood cultures, no growth. CURRENT MEDICATIONS: Brovana, Diovan 320, doxycycline 100 q.12, DuoNeb, Maxipime 1 g, amlodipine 10, PhosLo, Protonix 40. ASSESSMENT: 1. Left lower lobe pneumonia. 2. Severe anemia, recent gastrointestinal bleed. 3. Hypertension. 4. History of anti-glomerular basement membrane antibody disease. 5. End-stage renal disease. PLAN: 1. Continue antibiotics for pneumonia. 2. Stable dialysis today. 3. Cardiology evaluation for elevated troponin. 4. Continue current antihypertensives Deidra Gomez MD
[2017-03-14] MEDS: Cefepime 1gm in NS 100ml 1 GM/100 ML BAG IVPB SCH (20:48)
--- NOTE | 2017-03-14 22:37 | CP.PCM.PN ---
Subjective - Date & Time of Evaluation Date of Evaluation: 03/14/17 Time of Evaluation: 11:15 - Subjective Subjective: Comfortable in bed, no fevers, breathing well. Objective - Vital Signs/Intake and Output Vital Signs (last 24 hours): Temp Pulse Resp BP Pulse Ox 98.6 F 87 18 124/67 93 L 03/14/17 05:50 03/14/17 05:50 03/14/17 05:50 03/14/17 05:50 03/14/17 05:50 Intake and Output: 03/14/17 03/14/17 06:59 18:59 Intake Total 0 Output Total 0 Balance 0 - Medications Medications: Current Medications Albuterol/Ipratropium (Duoneb 3 Mg/0.5 Mg (3 Ml) Ud) 3 ml IH Q2 PRN PRN Reason: Shortness of Breath Amlodipine Besylate (Norvasc) 10 mg PO DAILY [facility] Last Admin: 03/13/17 09:36 Dose: 10 mg Arformoterol Tartrate (Brovana) 15 mcg IH [id number] [facility] Last Admin: 03/14/17 09:57 Dose: Not Given Calcium Acetate (Phoslo) 667 mg PO WM [facility] Last Admin: 03/13/17 18:52 Dose: 667 mg Doxycycline Hyclate (Doryx) 100 mg PO Q12 MARK PRN Reason: Protocol Stop: 03/22/17 22:01 Last Admin: 03/13/17 22:56 Dose: 100 mg Cefepime HCl (Maxipime 1gm) 1 gm in 100 mls @ 100 mls/hr IVPB Q24H MARK PRN Reason: Protocol Last Admin: 03/13/17 23:03 Dose: 100 mls/hr Pantoprazole Sodium (Protonix Ec Tab) 40 mg PO 0600 [facility] Last Admin: 03/14/17 05:08 Dose: 40 mg Valsartan (Diovan) 320 mg PO DAILY [facility] Last Admin: 03/13/17 09:36 Dose: 320 mg - Labs Labs: 03/14/17 06:10 03/14/17 06:10 PT 12.4 SECONDS (9.4-12.5) 03/12/17 19:54 INR 1.09 (0.93-1.08) H 03/12/17 19:54 APTT 30.6 Seconds (25.1-36.5) 03/12/17 19:54 - Constitutional Appears: Non-toxic, Chronically Ill - Head Exam Head Exam: NORMAL INSPECTION - Neck Exam Neck Exam: absent: Meningismus - Respiratory Exam Respiratory Exam: Decreased Breath Sounds - Cardiovascular Exam Cardiovascular Exam: +S1, +S2 - GI/Abdominal Exam GI & Abdominal Exam: Soft. absent: Tenderness Assessment and Plan - Assessment and Plan (Free Text) Plan: Assessment Sepsis due to left upper lobe HCAP with NSTEMI history of Pseudomembranous colitis history of infected peritoneal dialysis catheter Chronic renal failure on hemodialysis CAD HTN dementia anxiety Plan continue Doxycycline and Cefepime (Day 2) to complete 4-7 days of therapy will monitor clinically
[2017-03-15] MEDS: Pantoprazole 40 mg EC Tab PO SCH (05:35)
[2017-03-15] MEDS: Arformoterol 15 mcg/2 ml Inh Sol IH SCH ×2 (08:19→20:34)
[2017-03-15] MEDS: Cefepime 1gm in NS 100ml 1 GM/100 ML BAG IVPB SCH (20:41)
--- NOTE | 2017-03-16 00:35 | PN ---
DATE OF EVALUATION: 03/15/2017 SUBJECTIVE: He is comfortable in bed, in no acute distress. No fever. No cough with expectoration. No shortness of breath. No chest pain. Currently getting IV antibiotics for pneumonia. He also had non-STEMI. Troponins are declining. REVIEW OF SYSTEMS: As per HPI. Rest of 12-point review of systems reviewed and negative. MEDICATIONS: Brovana, bronchodilator, DuoNeb, Coreg 3.125 mg p.o. b.i.d., cefepime q 24 hours renal dosing, doxycycline 100 mg p.o. q.12 hours, Protonix 40 mg daily, Diovan 320 mg p.o. daily, PhosLo 667 mg on Friday and Friday. LABORATORY DATA: White count 6.5, hemoglobin 8, hematocrit 24.6, and platelet count 198. Sodium 137, potassium 5.1, BUN 39, creatinine 10.4. Troponin 0.17. Magnesium 2.5, phosphorus 6.5. ASSESSMENT: 1. Non-ST elevation myocardial infarction. 2. Left lower lobe pneumonia. 3. End-stage renal disease, on hemodialysis. 4. Anemia. PLAN: Hemodynamically stable. Troponins declining. improved. He is currently on IV antibiotics, Maxipime and doxycycline. ID following, Dr. Quezada, note reviewed. Cardiology, Dr. Bolivar, following. Renal, Dr. Gomez's note reviewed. We will continue bronchodilators. Continue Coreg 3.125 mg daily, doxycycline 100 mg q.12 hours, Diovan 320 mg daily. Rere Mojica MD
--- NOTE | 2017-03-16 01:29 | HP ---
DATE OF EVALUATION: 03/13/2017 HISTORY OF PRESENT ILLNESS: Mr. Del Cid is a 56-year-old male with history of end-stage renal disease on hemodialysis, he was sent from ED because of oxygen desaturation to 70's, on hemodialysis, and he was lethargic. Denies any chest pain. No shortness of breath. No fever. Chest x-ray showed left lower lobe pneumonia. Troponins were elevated. He has chronic anemia related to end-stage renal disease. PAST MEDICAL HISTORY: COPD, hypertension, end-stage renal disease, and history of blood transfusion in the past. PAST SURGICAL HISTORY: Left arm AV fistula. FAMILY HISTORY: Not contributory. PERSONAL HISTORY: Current smoker. No history of alcohol abuse. SOCIAL HISTORY: He lives at home. ALLERGIES: NO KNOWN DRUG ALLERGIES. HOME MEDICATIONS: Calcium, amlodipine and valsartan one tablet daily. REVIEW OF SYSTEMS: As per HPI. Altered mental status. PHYSICAL EXAMINATION: GENERAL: Lethargic, in no acute distress. VITAL SIGNS: Temperature of 101, respiratory rate of 20 per minute, blood pressure of 158/82, and oxygen saturation of 96% on room air. HEENT: Normal. CHEST: Bilateral crepitations present. CARDIOVASCULAR: S1 and S2 normal. No murmur. No gallop. ABDOMEN: Soft and nontender. No hepatosplenomegaly. EXTREMITIES: No edema. CENTRAL NERVOUS SYSTEM: Lethargic, arousable. SKIN: No petechiae. No rash. DIAGNOSTIC DATA: EKG normal sinus rhythm. No ST elevation. LABORATORY DATA: White count is 6.8, hemoglobin is 8.7, hematocrit is 27.4, and platelets are 204. Sodium is 138, potassium is 4.2, BUN is 27, and creatinine is 5.5. BNP is 106,000. ASSESSMENT AND PLAN: 1. Left lower lobe pneumonia. 2. Non-ST elevation myocardial infarction. 3. End-stage renal disease on hemodialysis. 4. Anemia. 5. Hypertension. 6. Chronic obstructive pulmonary disease. PLAN: He will be admitted to the hospital. Tele monitoring and ID consultation with Dr. Quezada is requested. He will be started on cefepime, and doxycycline added. He received a dose of vancomycin in the ER. We will continue hemodialysis. Anemia related to chronic kidney disease, hemoglobin and hematocrit are stable. DuoNeb q. 6 hours. p.r.n., Brovana 15 mcg inhalation q. 12 hours., PhosLo 667 mg twice a day, Coreg 3.125 mg b.i.d., Protonix 40 mg daily, and Diovan 320 mg daily. ID consultation with Dr. Quezada and Cardiology consultation with Dr. Bolivar is requested. Rere Mojica MD
--- NOTE | 2017-03-16 03:50 | PN ---
DATE: 03/15/2017 SUBJECTIVE: The patient is in bed, in no acute distress, seen early this morning. PHYSICAL EXAMINATION: VITAL SIGNS: Temperature is 99, T-max is 101.2, respiratory rate of 20, heart rate of 79. HEENT: Unremarkable. NECK: Supple. LUNGS: Have decreased breath sounds. HEART: Normal S1 and S2. ABDOMEN: Soft, nontender. SKIN: Examination of rash in the back is still unchanged, chronic changes. LABORATORY DATA: Reveals a white count of 6.5, sed rate is 132, hemoglobin is noted. BUN of 63, creatinine of 10, troponin is elevated. The patient had a procalcitonin of 2.91. Immunology as noted, serology for influenza is negative. The blood culture showed no growth. ASSESSMENT AND PLAN: This is a 56-year-old with sepsis to the left upper lobe, health-care associated pneumonia with a non-ST elevation myocardial infarction, history of pseudomembranous colitis, history of infected peritoneal dialysis catheter, chronic renal failure, on hemodialysis, coronary artery disease, hypertension, dementia, anxiety, on day #3 of cefepime and doxycycline. Recommended biopsy of the skin lesions, and the patient did receive a dose of vancomycin. We will follow with you. Today is day #3 of antibiotics, would complete 4 to 7 days, follow . Gary Quezada MD 03/16/2017<
[2017-03-16] MEDS: Pantoprazole 40 mg EC Tab PO SCH (05:11)
[2017-03-16] MEDS: Arformoterol 15 mcg/2 ml Inh Sol IH SCH ×2 (07:32→19:57)
--- NOTE | 2017-03-16 12:25 | PN ---
DATE: 03/16/2017 SUBJECTIVE: The patient says he feels better, but still not back to his baseline. He has no complaints of any headaches or dizziness. No nausea. No vomiting. PHYSICAL EXAMINATION: VITAL SIGNS: Temperature is 99.2, pulse is 79, blood pressure 113/74, and respirations 18. GENERAL: The patient is lying in bed, flat, comfortable. HEENT: No oral lesion. Anicteric sclerae. Moist mucosa. NECK: No JVD, adenopathy, or thyromegaly. CARDIOVASCULAR: S1 and S2, regular. No murmurs, rubs, or gallops. LUNGS: Clear to auscultation bilaterally. No wheeze, rales, or rhonchi. ABDOMEN: Bowel sounds are positive, soft, nontender and nondistended. EXTREMITIES: No cyanosis, clubbing or edema. SKIN: Skin has multiple small skin ulcers on the back that is about 1 cm. LABORATORY DATA: White count of 6.5 and hemoglobin is 8. Creatinine is 10.4. ASSESSMENT: 1. Healthcare pneumonia. 2. Non-ST elevation myocardial infarction. 3. End-stage renal disease on hemodialysis. 4. Coronary artery disease. 5. Hypertension. 6. Anemia. 7. Secondary hyperparathyroidism. PLAN: The patient is currently comfortable. The patient is on Brovana for his breathing. He is on Coreg for his coronary artery disease. He is on doxycycline for antibiotics. He is receiving PhosLo for his secondary hyperparathyroidism. The patient is on atenolol as needed. He is on the renal diet. The patient is getting physical therapy. The patient had an evaluation by PT yesterday. They are recommending home services. Possible discharge tomorrow, if the patient is stable. Marc Garcia MD
[2017-03-16] MEDS: Bacitracin 500 Units/gm Oint Foilpak UD TOP SCH (17:33)
[2017-03-16] MEDS: Cefepime 1gm in NS 100ml 1 GM/100 ML BAG IVPB SCH (20:27)
--- NOTE | 2017-03-17 03:12 | PN ---
DATE: 03/16/2017 SUBJECTIVE: The patient is seen lying in bed. He is awake, he is alert, he is comfortable. PHYSICAL EXAMINATION: GENERAL: Middle-aged male, lying in bed. VITAL SIGNS: Blood pressure 126/86, heart rate 72, respiratory rate 20, temperature 98.6. HEENT: Normocephalic, atraumatic, positive pallor. NECK: Supple, no JVD. LUNGS: Bilateral equal air entry, rales left base present. CARDIAC: S1, S2, regular rate and rhythm, no murmur, no rub. ABDOMEN: Soft, nondistended, nontender, bowel sounds present. EXTREMITIES: No lower extremity edema. LABORATORY DATA: No new labs. MEDICATIONS: Brovana, Coreg, Diovan, doxycycline 100 q.12, cefepime 1 gm daily, PhosLo, Protonix, Tylenol. ASSESSMENT: 1. Left lower lobe pneumonia. 2. Anemia, status post recent gastrointestinal bleed. 3. Hypertension. 4. End-stage renal disease. 5. Secondary hyperparathyroidism. PLAN: 1. Continue antibiotics as per Infectious Disease recommendations. 2. Continue current antihypertensives. 3. Dialysis tomorrow. 4. Consider biopsy of the skin lesions. Deidra Gomez MD
--- NOTE | 2017-03-17 03:17 | PN ---
DATE: 03/16/2017 SUBJECTIVE: The patient is seen earlier this morning in room 366, bed 2. Overall, he is afebrile and he is weak. He has mild shortness of breath. PHYSICAL EXAMINATION: VITAL SIGNS: Temperature is down to 98, T-max yesterday was 101.2, blood pressure is 120/80, respiratory rate of 20, and heart rate of 72. HEENT: Unremarkable. NECK: Supple. LUNGS: Decreased breath sounds. HEART: Normal S1 and S2. ABDOMEN: Soft. LABORATORY DATA: Reveals blood cultures are negative. White count of 6.5, hemoglobin of 8, and platelets of 198. Sed rate is 132. BUN of 63 and creatinine of 10. Procalcitonin is 2.91. Troponin is elevated at 0.28 and 0.17. Microbiology reveals the blood cultures are negative and complement levels are noted. Influenza serology is negative. Dr. Garcia's note is reviewed. ASSESSMENT AND PLAN: A 56-year-old male who is seen early this morning in room 366, bed 2, who was admitted with sepsis for the left upper lobe healthcare-associated pneumonia with a non-ST elevation myocardial infarction, history of pseudomembranes colitis, history of infected peritoneal dialysis by catheter, chronic renal failure, on hemodialysis, coronary artery disease, hypertension, dementia, and anxiety, today is day #4 of cefepime and doxycycline. The patient still has low-grade fever yesterday, will continue at least 4 to 7 days. feel better. He still has skin lesions on his back and will need skin biopsy sent AFB, fungal smears and cultures, Gram-stain bacterial cultures in addition to pathology. Review of orders reveals the patient to be on doxycycline and cefepime. The patient's blood cultures thus far are negative. Awaiting for final culture results. Gary Quezada MD
[2017-03-17] MEDS: Pantoprazole 40 mg EC Tab PO SCH (05:00)
[2017-03-17 06:58] LABS: BASO # 0.04 K/mm3 (0.0-2.0); BASO % 0.7 % (0.0-3.0); EOS # 0.3 (0.0-0.7); EOS % 4.9 % (1.5-5.0); GRAN # 3.67 (1.4-6.5); GRAN % 68.7 % (50.0-68.0); LYMPH # 0.9 (1.2-3.4); LYMPH % 16.4 % (22.0-35.0); MEAN CELL VOLUME 98.2 fl (80.0-105.0); MEAN CORPUSCULAR HEMOGLOBIN 31.7 pg (25.0-35.0); MEAN CORPUSCULAR HGB CONC 32.3 g/dl (31.0-37.0); MEAN PLATELET VOLUME 9.3 fl (7.0-11.0); MONO # 0.5 (0.1-0.6); MONO % 9.3 % (1.0-6.0); RBC 2.24 10^6/uL (3.5-6.1); RED CELL DISTRIBUTION WIDTH 15.9 % (11.5-14.5); WHITE BLOOD COUNT 5.4 10^3/ul (4.5-11.0)
[2017-03-17 07:06] LABS: ALB/GLOB RATIO 1.2 (1.1-1.8); ALBUMIN 3.6 g/dL (3.0-4.8); CALCIUM 9.9 mg/dL (8.4-10.5); MAGNESIUM 2.2 mg/dL (1.7-2.2)
[2017-03-17 07:32] LABS: HEMOGLOBIN 7.1 g/dL (14.0-18.0)
--- NOTE | 2017-03-17 09:49 | PN ---
DATE: 03/15/2017 SUBJECTIVE: The patient is seen lying in bed. He is sleeping comfortably. He does not appear to be in any kind of distress. OBJECTIVE: VITAL SIGNS: Blood pressure 141/91, heart rate 93, respiratory rate 18, temperature 101.2, T-max is 101.2. HEENT: Normocephalic, atraumatic. NECK: Supple, no JVD. LUNGS: Bilateral equal air entry, crackles left base. CARDIAC: S1, S2, regular rate and rhythm, no murmur, no rub. ABDOMEN: Soft, nondistended, nontender, bowel sounds present. EXTREMITIES: No lower extremity edema. INTAKE AND OUTPUT: Not charted. LABORATORY DATA: No new labs. CURRENT MEDICATIONS: Brovana, Coreg, Diovan, doxycycline 100 q.12, Maxipime 1 gm daily, PhosLo, Protonix, Tylenol. ASSESSMENT AND PLAN: 1. Left lower lobe pneumonia, persistent fevers. 2. Severe anemia, recent gastrointestinal bleed, duodenal ulcers. 3. Hypertension. 4. End-stage renal disease. 5. Anti-glomerular basement membrane antibody disease. 6. Coronary artery disease, status post percutaneous transluminal coronary angioplasty and stent. PLAN: 1. Continue antibiotics as per ID recommendations. 2. ? repeat cultures. 3. Continue to monitor fingersticks. 4. Continue to monitor hemoglobin. 5. Continue with current antihypertensives. 6. Consider biopsy of skin lesions. Deidra Gomez MD
[2017-03-17] MEDS: Bacitracin 500 Units/gm Oint Foilpak UD TOP SCH ×2 (10:59→17:35)
--- NOTE | 2017-03-17 12:16 | CP.PCM.CON ---
<Bjorn Valente - Last Filed: 03/17/17 12:38> History of Present Illness - History of Present Illness History of Present Illness: General Surgery Consult Note for Dr. Crews CC: rash 56 year old male with a past medical history of ESRD for the past four years, hypertension, COPD, and anemia who [place] [facility] to fever, dyspnea, cough , and lethargy and was found to have a left upper lobe pneumonia and a mild elevation in his troponins. We, the surgical team, were requested to evaluate the patient for a rash on his back. The rash has been present since starting HD. They have been on his chest and anterior trunk, but currently are only actively present - scarred/bleeding on his back. He reports they comes on periodically, and states that eating dairy products exacerbates/precipitates the lesions. He admits to associated pruritus, picking at the scabs, and reports calamine lotion relieves the irritation; worsened when anything comes in contact with them. PMD: Dr. Deidra Gomez PMH: ESRD, COPD, hypertension, anemia PSH: left forearm AVF, throat surgery- unspecified Allergies: NKA Social: tobacco use, denies alcohol or illicit drug use. Review of Systems - Review of Systems All systems: reviewed and no additional remarkable complaints except Review of Systems: as per hpi Past Patient History - Infectious Disease Hx of Infectious Diseases: None - Tetanus Immunizations Tetanus Immunization: Unknown - Past Medical History & Family History Past Medical History?: Yes - Past Social History Smoking Status: Current Some Days Smoker - CARDIAC Hx Hypertension: Yes - PULMONARY Hx Chronic Obstructive Pulmonary Disease (COPD): Yes - NEUROLOGICAL Hx Neurological Disorder: No - HEENT Hx HEENT Problems: No Hx Blind: No Hx Cataracts: No Hx Deafness: No Hx Difficulty Chewing: No Hx Epistaxis: No Hx Glaucoma: No Hx Macular Degeneration: No - RENAL Hx Chronic Kidney Disease: Yes Hx Dialysis: Yes Date of Last Dialysis Treatment: 03/12/17 - ENDOCRINE/METABOLIC Hx Endocrine Disorders: No - HEMATOLOGICAL/ONCOLOGICAL Hx Blood Transfusions: Yes (06/2013 [facility] [place]) Hx Blood Transfusion Reaction: No - INTEGUMENTARY Other/Comment: has calcium sores scattred his back, some areas of dry scabs with raw sores on his back - MUSCULOSKELETAL/RHEUMATOLOGICAL Hx Falls: No - GASTROINTESTINAL Hx Gastrointestinal Disorders: No - GENITOURINARY/GYNECOLOGICAL Other/Comment: Anuria - PSYCHIATRIC Hx Substance Use: No - SURGICAL HISTORY Other/Comment: Left forearm av fistula , r chest udall insertion and removal, excision throat cyst - ANESTHESIA Hx Anesthesia Reactions: No Hx Malignant Hyperthermia: No Meds Allergies/Adverse Reactions: Allergies Allergy/AdvReac Type Severity Reaction Status Date / Time No Known Allergies Allergy Verified 03/12/17 18:41 - Medications Medications: Current Medications Acetaminophen (Tylenol 325mg Tab) 650 mg PO Q6H PRN PRN Reason: Fever >100.4 F Last Admin: 03/15/17 10:47 Dose: 650 mg Albuterol/Ipratropium (Duoneb 3 Mg/0.5 Mg (3 Ml) Ud) 3 ml IH Q2 PRN PRN Reason: Shortness of Breath Last Admin: 03/16/17 19:57 Dose: 3 ml Arformoterol Tartrate (Brovana) 15 mcg IH [id number] [facility] Last Admin: 03/16/17 19:57 Dose: 15 mcg Bacitracin (Bacitracin) 1 ea TOP BID [facility] Last Admin: 03/17/17 10:59 Dose: 1 ea Calcium Acetate (Phoslo) 667 mg PO WM [facility] Last Admin: 03/17/17 10:59 Dose: 667 mg Carvedilol (Coreg) 3.125 mg PO BID [facility] Last Admin: 03/17/17 11:00 Dose: 3.125 mg Doxycycline Hyclate (Doryx) 100 mg PO Q12 MARK PRN Reason: Protocol Stop: 03/22/17 22:01 Last Admin: 03/17/17 10:59 Dose: 100 mg Cefepime HCl (Maxipime 1gm) 1 gm in 100 mls @ 100 mls/hr IVPB Q24H MARK PRN Reason: Protocol Last Admin: 03/16/17 20:27 Dose: 100 mls/hr Pantoprazole Sodium (Protonix Ec Tab) 40 mg PO 0600 [facility] Last Admin: 03/17/17 05:00 Dose: 40 mg Valsartan (Diovan) 320 mg PO DAILY [facility] Last Admin: 03/17/17 10:59 Dose: 320 mg Physical Exam - Constitutional Appears: Non-toxic, No Acute Distress - Head Exam Head Exam: ATRAUMATIC, NORMOCEPHALIC - Eye Exam Eye Exam: EOMI Additional comments: conjuctival pallor - ENT Exam ENT Exam: Mucous Membranes Moist, Normal Oropharynx Additional comments: no buccal or gingival skin lesions - Neck Exam Neck exam: Positive for: Normal Inspection - Respiratory Exam Additional comments: left sided crackles greater than right - Cardiovascular Exam Cardiovascular Exam: RRR, +S1, +S2 - GI/Abdominal Exam GI & Abdominal Exam: Normal Bowel Sounds, Soft - Back Exam Additional comments: multiple scabbed lesions on back - Neurological Exam Neurological exam: Alert, CN II-XII Intact, Oriented x3 - Psychiatric Exam Psychiatric exam: Normal Affect, Normal Mood - Skin Additional comments: multiple scab like lesions noted on back Results - Vital Signs Recent Vital Signs: Last Vital Signs Temp 97.5 F L 03/17/17 10:08 Pulse 77 03/17/17 10:08 Resp 16 03/17/17 10:08 BP 125/68 03/17/17 10:08 Pulse Ox 95 03/17/17 08:30 - Labs Result Diagrams: 03/17/17 06:41 03/17/17 06:41 Labs: Laboratory Results - last 24 hr 03/17/17 03/17/17 03/17/17 06:41 06:41 07:57 WBC 5.4 RBC 2.24 L Hgb 7.1 L Hct 22.0 L MCV 98.2 D MCH 31.7 MCHC 32.3 RDW 15.9 H Plt Count 138 MPV 9.3 Gran % 68.7 H Lymph % (Auto) 16.4 L [place] % (Auto) 9.3 H Eos % (Auto) 4.9 Baso % (Auto) 0.7 Gran # 3.67 Lymph # 0.9 L [place] # 0.5 Eos # 0.3 Baso # 0.04 Sodium 136 Potassium 5.2 H Chloride 94 L Carbon Dioxide 24 Anion Gap 22 H BUN 109 H Creatinine 14.7 H* D Est GFR ( Amer) 4 Est GFR (Non-Af Amer) 4 Random Glucose 94 Calcium 9.9 Phosphorus 7.4 H Magnesium 2.2 Total Bilirubin 0.5 AST 72 H D ALT 55 Alkaline Phosphatase 82 Total Protein 6.6 Albumin 3.6 Globulin 3.0 Albumin/Globulin Ratio 1.2 Blood Type O NEGATIVE Antibody Screen Negative Crossmatch See Detail BBK History Checked Patient has bt Assessment & Plan - Assessment and Plan (Free Text) Assessment: 56 year old male with a past medical history of ESRD, hypertension, COPD, and anemia who was treated for a left upper lobe pneumonia. Patient was asked to be evaluated for chronic rash and biopsy. Plan: Scheduled tomorrow for core/excisional biopsy Case discussed with attending, Dr. Mars Valente DO, PGY-1 - Date & Time Date: 03/17/17 Time: 12:49 <Suhas Crews - Last Filed: 03/18/17 20:50> Meds - Medications Medications: Current Medications Oxycodone/Acetaminophen (Percocet 5/325 Mg Tab) 1 tab PO Q4H PRN PRN Reason: Pain, moderate (4-7) Stop: 03/21/17 16:00 Results - Vital Signs Recent Vital Signs: Last Vital Signs Temp 98.1 F 03/18/17 11:13 Pulse 71 03/18/17 11:13 Resp 20 03/18/17 11:13 BP 120/69 03/18/17 11:13 Pulse Ox 70 L 03/18/17 17:06 - Labs Result Diagrams: 03/18/17 05:30 03/17/17 06:41 Labs: Laboratory Results - last 24 hr 03/18/17 05:30 WBC 5.4 RBC 2.76 L Hgb 8.7 L Hct 26.6 L MCV 96.4 MCH 31.5 MCHC 32.7 RDW 17.4 H Plt Count 135 MPV 9.4 Assessment & Plan - Assessment and Plan (Free Text) Assessment: Dx Mult chronic raised pruritic skin lesions back(Non Healing) Biopsy for Histopathology hopefully will be helpful This consult done under my direct supervision Tram Crews MD FACS
[2017-03-17] MEDS: Arformoterol 15 mcg/2 ml Inh Sol IH SCH ×2 (13:32→22:40)
--- NOTE | 2017-03-17 15:07 | PN ---
DATE: SUBJECTIVE: The patient is a 56-year-old seen and examined after dialysis, complained of cough, congestion nausea, vomiting. No diarrhea. Complained of generalized weakness. PHYSICAL EXAMINATION: VITAL SIGNS: He is afebrile. Pulse 77, respirations 16, and blood pressure 125/68. LUNGS: Bilateral fair airflow. No rhonchi or crackle. HEART: S1 and S2, audible. ABDOMEN: Soft and nontender. No rebound. No guarding. NEUROLOGIC: He is awake, alert, oriented, and communicative. EXTREMITIES: Bilateral leg no edema. LABORATORY DATA: WBC 5.4, hemoglobin 7.1, hematocrit 22, and platelets 138. Chemistry; sodium 136, potassium 5.2, chloride 94, CO2 24, BUN 109, creatinine 14.7,and blood sugar 94. Blood cultures are negative. X-ray of chest shows dense focal infiltrate in the upper lobe consistent with pneumonia. ASSESSMENT: 1. Community-acquired pneumonia. 2. End-stage renal disease, on hemodialysis. 3. History of hypertension. 4. Peptic ulcer disease. 5. Chronic anemia. PLAN: The patient is currently on Brovana. He is getting carvedilol, valsartan, and doxycycline as recommended by ID and he is on cefepime, I will continue that. Out of bed to chair. We will re-evaluate the patient . Valdemar Reese MD
--- NOTE | 2017-03-17 17:02 | PN ---
DATE: 03/17/2017 SUBJECTIVE: The patient is seen lying in bed. He is awake, he is alert, he is comfortable. He had dialysis earlier today. He received 1 unit of PRBC. The patient declined the second unit. PHYSICAL EXAMINATION: GENERAL: Middle-aged male, lying in bed. Vital signs: Blood pressure 125/68, heart rate 77, respiratory rate 18, temperature 97.5. HEENT: Normocephalic, atraumatic, positive pallor. NECK: Supple, no JVD. LUNGS: Bilateral equal entry, bilateral equal expansion. CARDIAC: S1, S2. Regular rate and rhythm. No murmur, no rub. Abdomen: Soft, nondistended, nontender, bowel sounds present. EXTREMITIES: No lower extremity edema. LABORATORY DATA: WBC 5, hemoglobin 7, hematocrit 22, platelets 138. Sodium 136, potassium 5.2, chloride 94, CO2 of 24, BUN 109, creatinine 14.7, glucose 94, calcium 9.9, phosphorus 7.4 magnesium 2.2. CURRENT MEDICATIONS: Bacitracin, Brovana, Coreg 3.125 b.i.d., Diovan 320, doxycycline 100 q.12, DuoNeb, Maxipime 1 gm daily, PhosLo, Protonix. Echocardiogram done on 03/14 shows four-chamber dilatation, EF 25%, moderate TR. ASSESSMENT/PLAN: 1. Left lower lobe pneumonia. 2. Severe anemia, drop in hemoglobin. Recent endoscopy in 01/2017 showing nonbleeding esophageal ulcer, gastric ulcer with clean base, chronic gastritis. 3. End-stage renal disease. 4. Secondary hyperparathyroidism, hyperphosphatemia. 5. Hypertension. 6. Noncompliance. PLAN: 1. GI evaluation with Dr. Robles. 2. Monitor H and H. 3. Transfuse second unit on dialysis on Friday. 4. Evaluation with Dr. Crews for skin biopsy of the back lesions. 5. Continue antibiotics as per ID recommendations. 6. Stable dialysis. Deidra Gomez MD
--- NOTE | 2017-03-17 17:09 | CP.PCM.PN ---
Subjective - Date & Time of Evaluation Date of Evaluation: 03/17/17 Time of Evaluation: 10:55 - Subjective Subjective: Comfortable, no fevers, not in distress, breathing better, cough is improved. Objective - Vital Signs/Intake and Output Vital Signs (last 24 hours): Temp Pulse Resp BP Pulse Ox 97.7 F 74 18 138/83 95 03/17/17 08:30 03/17/17 08:30 03/17/17 08:30 03/17/17 08:30 03/17/17 08:30 Intake and Output: 03/17/17 03/17/17 06:59 18:59 Intake Total 540 Output Total 1 Balance 539 - Medications Medications: Current Medications Acetaminophen (Tylenol 325mg Tab) 650 mg PO Q6H PRN PRN Reason: Fever >100.4 F Last Admin: 03/15/17 10:47 Dose: 650 mg Albuterol/Ipratropium (Duoneb 3 Mg/0.5 Mg (3 Ml) Ud) 3 ml IH Q2 PRN PRN Reason: Shortness of Breath Last Admin: 03/16/17 19:57 Dose: 3 ml Arformoterol Tartrate (Brovana) 15 mcg IH [id number] [facility] Last Admin: 03/16/17 19:57 Dose: 15 mcg Bacitracin (Bacitracin) 1 ea TOP BID [facility] Last Admin: 03/16/17 17:33 Dose: 1 ea Calcium Acetate (Phoslo) 667 mg PO WM [facility] Last Admin: 03/16/17 17:33 Dose: 667 mg Carvedilol (Coreg) 3.125 mg PO BID [facility] Last Admin: 03/16/17 17:33 Dose: 3.125 mg Doxycycline Hyclate (Doryx) 100 mg PO Q12 MARK PRN Reason: Protocol Stop: 03/22/17 22:01 Last Admin: 03/16/17 21:43 Dose: 100 mg Cefepime HCl (Maxipime 1gm) 1 gm in 100 mls @ 100 mls/hr IVPB Q24H MARK PRN Reason: Protocol Last Admin: 03/16/17 20:27 Dose: 100 mls/hr Pantoprazole Sodium (Protonix Ec Tab) 40 mg PO 0600 [facility] Last Admin: 03/17/17 05:00 Dose: 40 mg Valsartan (Diovan) 320 mg PO DAILY [facility] Last Admin: 03/16/17 09:26 Dose: 320 mg - Labs Labs: 03/17/17 06:41 03/17/17 06:41 PT 12.4 SECONDS (9.4-12.5) 03/12/17 19:54 INR 1.09 (0.93-1.08) H 03/12/17 19:54 APTT 30.6 Seconds (25.1-36.5) 03/12/17 19:54 - Constitutional Appears: Chronically Ill - Head Exam Head Exam: NORMAL INSPECTION - ENT Exam ENT Exam: Mucous Membranes Moist - Neck Exam Neck Exam: absent: Meningismus - Respiratory Exam Respiratory Exam: Decreased Breath Sounds - Cardiovascular Exam Cardiovascular Exam: +S1, +S2 - GI/Abdominal Exam GI & Abdominal Exam: Soft. absent: Tenderness Assessment and Plan - Assessment and Plan (Free Text) Plan: Assessment Sepsis due to left upper lobe HCAP with NSTEMI history of Pseudomembranous colitis history of infected peritoneal dialysis catheter Chronic renal failure on hemodialysis CAD HTN dementia anxiety Plan continue Doxycycline and Cefepime (Day 5) to complete 4-7 days of therapy - can switch to PO antibiotics when ready for discharge blood cx are negative will continue to monitor clinically
--- NOTE | 2017-03-17 22:34 | PN ---
DATE: 03/17/2017 REASON FOR CONSULTATION: Followup cardiac evaluation, end-stage renal disease, borderline positive, admitted with generalized weakness and lethargy after dialysis. SUBJECTIVE: The patient denies any chest pain, shortness of breath, or any palpitation. Seen in dialysis. OBJECTIVE: GENERAL: Not in apparent distress. VITAL SIGNS: Temperature afebrile, heart rate 92, and blood pressure 108/68. HEENT: PERRLA intact. Extraocular muscles intact. NECK: Supple. No carotid bruits or thyromegaly. CHEST: Clear to auscultation. HEART: S1 and S2 regular. ABDOMEN: Soft. EXTREMITIES: Clubbing and cyanosis negative. LABORATORY DATA: Blood workup as follows; WBC 5.3, hemoglobin 7.2, hematocrit 22, and platelet count 138. Chemistry shows sodium 130, potassium 5.2, chloride 94, carbon dioxide 24, anion gap of 22, BUN 109 and creatinine 14.7. IMPRESSION: Community-acquired pneumonia; end-stage renal disease on dialysis; history of hypertension; peptic ulcer disease; anemia of chronic disease. The patient's last echocardiography done dated, 03/14/2017 that shows ejection fraction 25%; trace aortic regurgitation; moderate mitral regurgitation; [id number] tricuspid regurgitation and RV systolic pressure of 76, , no pericardial effusion, no vegetation noted. Borderline troponin elevated secondary to renal insufficiency. End-stage renal disease, on dialysis. No complaint of chest pain. 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 RECOMMENDATION: Continue Coreg. Continue low-dose AHMET inhibitor as the blood pressure is tolerated. We will put digoxin on Friday, Friday and Friday. Reassess LV function in 3 to 6 months. If remains low, consider AICD. We will follow with you. Continue ramipril. Add digoxin. Continue low dose Coreg. Since the patient is already on valsartan, we will discontinue ramipril. AICD in the renal patient will be tricky and difficult because of the predisposed high risk of infection. Thank you Dr. Reese, for providing us the opportunity in taking care of the patient, Suhas Del Cid. Chas Bolivar MD [facility] # [id number]
[2017-03-17] MEDS: Cefepime 1gm in NS 100ml 1 GM/100 ML BAG IVPB SCH (23:02)
--- NOTE | 2017-03-18 01:52 | CON ---
DATE: 03/17/2017 This patient was seen and evaluated earlier today. REASON FOR CONSULTATION: Anemia, dropped in blood count. HISTORY OF PRESENT ILLNESS: This 56-year-old patient with past medical history of end-stage renal disease on hemodialysis was admitted for desaturation while on hemodialysis. The patient was found to have left upper lobe pneumonia. The patient is being treated with antibiotics. The patient is noticed to have hemoglobin dropped to 7.1. GI consult was requested to evaluate. The patient on this admission, hemoglobin was 8.7, it slowly dropped to 7.1. No obvious bleeding per rectum, melena. The patient had endoscopy and a coloscopy done last month. Colonoscopy revealed rectosigmoid polyp, diverticulosis and hemorrhoids and upper GI endoscopy revealed was found to have duodenal ulcers, esophageal ulcerations and gastric ulcerations. The patient was started on low-dose PPI. Denies any bleeding or no melena. Denies any abdominal pain. The patient also was noticed to have pruritus with multiple skin lesions. She is due to have skin biopsy tomorrow. PAST MEDICAL HISTORY: Significant as above. History of COPD, hypertension, anemia. PAST SURGICAL HISTORY: Significant for left fore arm AV fistula and throat surgery. ALLERGIES: NO KNOWN DRUG ALLERGIES. SOCIAL HISTORY: Positive for smoking. Denies alcohol. REVIEW OF SYSTEMS: Positive as above. All the systems reviewed. PHYSICAL EXAMINATION: GENERAL: The patient is lying on the bed, not in acute distress. VITAL SIGNS: Temperature 98.4, blood pressure 108/68, pulse 92, respirations 19, and O2 saturation 95%. HEENT: Atraumatic, anicteric. NECK: Supple. HEART: S1 and S2 heard. LUNGS: Bilateral air entry present. SKIN: Multiple skin excoriations, lesions noticed . EXTREMITIES: No cyanosis. NEUROLOGIC: Alert and oriented. Moves all extremities. LABORATORY DATA: Hemoglobin dropped to 7.1, hematocrit 22, WBC count 5.4 and platelet 138. Chemistries are essentially unremarkable. Serum creatinine is 14.7. AST 72, ALT 55. Chest x-ray shows left upper lobe pneumonia. 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 The patient's etiology for anemia probably multifactorial in this patient. history of esophageal, gastric ulcer, it is reasonable to evaluate the healing of the ulcer. RECOMMENDATIONS: Would recommend: 1. Followup of the hemoglobin and hematocrit. 2. Continue the antibiotics. 3. In view of this recent pneumonia, we will discuss with Dr. Reese and Dr. Gomez regarding the endoscopic evaluation. Reasonable thing is to consider repeat endoscopic evaluation in few weeks time to evaluate the healing of the ulcer and followup unless the patient shows active bleeding or significant drop in blood count. Further we will discuss with Dr. Reese and Dr. Gomez regarding this. Thank you very much for allowing us to participate in the care of the patient. Leslie Robles MD MTDD
[2017-03-18 06:26] LABS: HEMOGLOBIN 8.7 g/dL (14.0-18.0); MEAN CELL VOLUME 96.4 fl (80.0-105.0); MEAN CORPUSCULAR HEMOGLOBIN 31.5 pg (25.0-35.0); MEAN CORPUSCULAR HGB CONC 32.7 g/dl (31.0-37.0); MEAN PLATELET VOLUME 9.4 fl (7.0-11.0); RBC 2.76 10^6/uL (3.5-6.1); RED CELL DISTRIBUTION WIDTH 17.4 % (11.5-14.5); WHITE BLOOD COUNT 5.4 10^3/ul (4.5-11.0)
[2017-03-18] MEDS: Pantoprazole 40 mg EC Tab PO SCH (06:28)
[2017-03-18] MEDS: Arformoterol 15 mcg/2 ml Inh Sol IH SCH (08:09)
[2017-03-18] MEDS: Bacitracin 500 Units/gm Oint Foilpak UD TOP SCH (09:34)
[2017-03-18 10:15] VITALS: RESP 20
[2017-03-18] MEDS ORDERED: Lidocaine 1% Inj (20ml) ONE (10:20)
[2017-03-18] MEDS ORDERED: Bupivacaine 0.5% Inj(30mL) ONE (10:20)
--- NOTE | 2017-03-18 11:12 | PCM.SURG1 ---
Surgeon's Initial Post Op Note - Surgeon's Notes Surgeon: Dr. Crews [employer]: Pavel PGY1; Darlene PGY1 Type of Anesthesia: Local Pre-Operative Diagnosis: Multiple Back lesions Operative Findings: Multiple maccular lesions with scab Post-Operative Diagnosis: Same Operation Performed: Excisional Biopsy of Back lesion Specimen/Specimens Removed: Excisional biopsy. Core needle biopsy Estimated Blood Loss: EBL {In ML}: 2 Blood Products Given: N/A Drains Used: No Drains Post-Op Condition: Good Date of Surgery/Procedure: 03/18/17 Time of Surgery/Procedure: 11:12
[2017-03-18 11:20] VITALS: BP 120/69; PULSE 71; TEMP 98.1
--- NOTE | 2017-03-18 14:23 | CP.PCM.PCO ---
Physician Communication Note - Physician Communication Note Physician Communication Note: patient off floor during rounds,for skin BX, spoke to nursing , need FU EGD
--- NOTE | 2017-03-18 14:40 | PN ---
DATE: 03/18/2017 REASON FOR CONSULTATION AND FOLLOWUP: Cardiac evaluation, admitted with generalized weakness, lethargy, borderline troponin positive, end-stage renal disease on dialysis, status post cardiac catheterization, nonobstructive coronary artery disease in the past. SUBJECTIVE: The patient denies any chest pain, shortness of breath, or any palpitation. OBJECTIVE: GENERAL: Not in apparent distress. VITAL SIGNS: As follows: Temperature afebrile, heart rate 76, and blood pressure 150/75. HEENT: PERRLA. Extraocular muscles intact. NECK: Supple. No carotid bruits or thyromegaly. CHEST: Clear to auscultation. HEART: S1 and S2 regular. ABDOMEN: Soft. EXTREMITIES: Clubbing and cyanosis negative. LABORATORY DATA: Blood workup as follows: WBC 5.5, hemoglobin 8.7, hematocrit 26.6, and platelet count 135. Chemistry shows sodium 136, potassium 5.2, chloride 94, carbon dioxide 24, anion gap of 22, BUN 104, and creatinine 14.7. IMPRESSION: Community-acquired pneumonia, history of hypertension, peptic ulcer disease, anemia on chronic disease. Last echocardiogram dated on 03/14/2017, shows ejection fraction 25%, trace aortic regurgitation, moderate mitral regurgitation, moderate to severe tricuspid regurgitation, right ventricular systolic pressure of 76 mmHg. No pericardial effusion. No vegetation noted. No complaint of chest pain. History of cardiac catheterization on 11/22/2013 normal coronaries, nonischemic cardiomyopathy, end-stage renal disease on dialysis secondary to glomerulonephritis on dialysis 4 years ago Friday, Friday, Friday, who admitted with pneumonia and sepsis. RECOMMENDATIONS: Continue Coreg. Continue low-dose AHMET inhibitors as blood pressure is tolerated. We will put digoxin on Friday, Friday, Friday. Reassess LV function in 3 to 6 months, if remained low consider AICD. Continue Coreg and continue valsartan. The patient is on ARB inhibitor. CVS status is stable. Once the patient is medically cleared can be discharged home. No further cardiac workup is planned at this time. We will follow with you. Thank you Dr. Reese for providing us the opportunity in taking care of the patient, Suhas Del Cid. Chas Bolivar MD
[2017-03-18] MEDS ORDERED: Oxycodone/Acetaminophen 5/325 mg Tab PO PRN (15:59)
[2017-03-18 17:05] VITALS: O2SAT 70
--- NOTE | 2017-03-18 17:05 | IP.NPCORE ---
Pneumonia Progress Notes - Oxygenation Assessment (REQUIRED) O2 Saturation: 70 Oxygen Delivery Method: Nasal Cannula Date: 03/18/17 Documented P02: No - Blood Cultures (REQUIRED) Culture drawn: Yes Date:: 03/12/17 Time:: 19:55 - Initial Antibiotic Initial Antibiotic given within Four Hours:: Yes Date:: 03/12/17 Time:: 21:30 - Appropriate Antibiotic Appropriate Antibiotic within 24 hours of Admission:: Yes No change in antibiotics: Yes - Pneumonia Vaccine Pneumonia Vaccine: No - STANDARD Contraindications to Pneumococcal Vaccine: None - Smoking Cessation Smoking Cessation counseling provided:: No Ex-Smoker (has not smoked in the last 12 months): No Current Smoker - smoking cessation education provided: No
--- NOTE | 2017-03-18 17:36 | PN ---
DATE: 03/18/2017 SUBJECTIVE: The patient is seen lying in bed. He is awake, he is alert, he is comfortable. He is status post skin biopsy. PHYSICAL EXAMINATION: GENERAL: Middle-aged male, lying in bed. VITAL SIGNS: Blood pressure 120/69, heart rate 71, respiratory rate 20, temperature 98.1. HEENT: Normocephalic, atraumatic. NECK: Supple, no JVD. LUNGS: Bilateral equal air entry, bilateral equal expansion. CARDIAC: S1 and S2, regular rate and rhythm, no murmur, no rub. ABDOMEN: Soft, nondistended, nontender, bowel sounds present. EXTREMITIES: No lower extremity edema. INTAKE AND OUTPUT: Not charted. LABORATORY DATA: WBC 5.4, hemoglobin 8.7, hematocrit 26.6, platelets 135. Sodium 136, potassium 5.2, chloride 94, CO2 of 24, BUN 109, creatinine 14.7, glucose 94, calcium 9.9, phosphorus 7.4. MEDICATIONS: List reviewed. ASSESSMENT: 1. Left lower lobe pneumonia, resolving. 2. Severe anemia, recent gastrointestinal bleed, recent endoscopy showing ulcers in the duodenum. 3. Hypertension. 4. End-stage renal disease. 5. History of anti-GBM antibody disease. PLAN: 1. Continue PPI. 2. The patient is status post 2 units of PRBCs. 3. Repeat endoscopy in a few weeks as per GI evaluation. 4. Follow up skin biopsy report. 5. Status post dialysis yesterday. Deidra Gomez MD
--- NOTE | 2017-03-19 00:21 | PN ---
DATE: 03/18/2017 SUBJECTIVE: The patient is in bed, in no acute distress. PHYSICAL EXAMINATION: VITAL SIGNS: Temperature is 98, blood pressure is 120/60, respiratory rate of 20. HEENT: Unremarkable. LABORATORY DATA: Blood cultures in no growth. White count is 5.4, hemoglobin of 8. BUN of 109, creatinine 14.7. Procalcitonin is noted. Microbiology is reviewed. Blood culture is noted. ASSESSMENT AND PLAN: This is a 56-year-old male who was seen earlier this morning in room 366, bed 2, admitted with sepsis for the left upper lobe healthcare-associated pneumonia with a non-ST elevation myocardial infarction, and with antibiotics p.o. and ready for discharge. The patient is on doxycycline and cefepime day #6. The patient for skin biopsy today. We will followup his result as outpatient. Gary Quezada MD
--- NOTE | 2017-03-19 02:51 | DS ---
HISTORY OF PRESENT ILLNESS: The patient is a 56-year-old, still has cough and congestion, but no fever and no chills. Eating and tolerating. He was initially admitted on 03/12/2017 because of shortness of breath and hypoxia and he was found to be lethargic and was found to have bilateral infiltrate, has been on IV antibiotic and doing well. The patient went for biopsy for the lesion on his back. He will be observed for couple of hours and possible discharge later on today. PHYSICAL EXAMINATION: GENERAL: Awake, alert, oriented, and communicative. VITAL SIGNS: He is afebrile, pulse 71, respirations 20, and blood pressure 120/69. LUNGS: Bilateral fair airflow, soft crackles at bases. HEART: S1 and S2 audible. ABDOMEN: Soft and nontender. No rebound. No guarding. NEUROLOGICAL: He is awake, alert, oriented, and communicative. LABORATORY DATA: WBC is 5.4, hemoglobin is 8.7, hematocrit is 26, and platelets are 135. Chemistry; sodium 136, potassium 5.2, chloride 94, CO2 is 24, BUN 109, creatinine 14.7, and blood sugar of 94. Flu test is negative. ASSESSMENT: 1. Community-acquired pneumonia. 2. End-stage renal disease, on hemodialysis. 3. Coronary artery disease. 4. History of hypertension. PLAN: Currently, the patient is on doxycycline. Discussed with Dr. Quezada who recommended to discharge him on doxycycline 100 b.i.d. and his cardiac status will be watched after biopsy and if he remains stable, he will be discharged later on today. Prescription for doxycycline 100 b.i.d. for 3 days has been written. Valdemar Reese MD
[2017-03-19] MEDS ORDERED: Digoxin 125 mcg (0.125 mg) Tab PO SCH (14:00)
--- NOTE | 2017-04-03 23:40 | OP ---
PROCEDURE DATE: 03/18/2017 SURGEON: Suhas Crews MD. EXCEL ANALYST: Dr. Aly. ANESTHESIA: MAC-Marcaine 0.5. PREOPERATIVE DIAGNOSIS: Multiple chronic skin lesions, back and extremities. POSTOPERATIVE DIAGNOSIS: Multiple chronic skin lesions, back and extremities. PATHOLOGY: Pending. PROCEDURE: Excision of skin lesion. OPERATIVE INDICATION: The patient is a 56-year-old male with chronic renal failure with a long-term history of multiple raised lesions approximately 1 cm in size over his back over the past 2 years that are chronically irritated, keratotic, scaling and inflamed. Because of the itchiness, he scratches and they bleed. 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 Gomez) has requested skin biopsy to see if an etiology or therapy could be elicited. Risks, benefits, and alternatives discussed with the patient. He signs the informed consent. OPERATIVE NOTE: Patient is brought to the operating room. He is placed in a lateral Virk position. Intravenous oxygenation monitoring was placed on the patient by the anesthesiologist. The skin was prepped with Hibiclens and chlorhexidine preparation. He was aseptically draped and the area of one lesion was infiltrated with bupivacaine plain and shave excision was employed, placed in formalin and the base electrofulgurated and covered with a Band-Aid. A dry dressing was applied. The patient was transported back to his room in a satisfactory condition. Estimated blood loss was minimal. Suhas Crews MD
== END 2017-03-18 14:25 | disposition home or self-care (01) | DRG 871 ==
LOC: ED 17:27 → ERH 23:53 → 3RSO 03-13 03:11 → 3RNO 03-14 21:11
PROVIDERS: ADMIT Internal Medicine Medical Oncology; ATTEND Internal Medicine
PROC: 3E0F7GC Introduction of Other Therapeutic Substance into Respiratory Tract, Via Natural or Artificial Opening (ICD-10-PCS; 2017-03-13)
PROC: 5A1D70Z Performance of Urinary Filtration, Intermittent, Less than 6 Hours Per Day (ICD-10-PCS; 2017-03-14)
PROC: 5A1D70Z Performance of Urinary Filtration, Intermittent, Less than 6 Hours Per Day (ICD-10-PCS; 2017-03-17)
PROC: 30233N1 Transfusion of Nonautologous Red Blood Cells into Peripheral Vein, Percutaneous Approach (ICD-10-PCS; 2017-03-17)
PROC: 0HB6XZX Excision of Back Skin, External Approach, Diagnostic (ICD-10-PCS; principal; 2017-03-18 10:30)
DX: A41.9 Sepsis, unspecified organism (principal); J18.9 Pneumonia, unspecified organism; I21.4 Non-ST elevation (NSTEMI) myocardial infarction; I13.2 Hypertensive heart and chronic kidney disease with heart failure and with stage 5 chronic kidney disease, or end stage renal disease; N18.6 End stage renal disease; E83.39 Other disorders of phosphorus metabolism; I08.1 Rheumatic disorders of both mitral and tricuspid valves; I42.9 Cardiomyopathy, unspecified; I50.9 Heart failure, unspecified; J44.0 Chronic obstructive pulmonary disease with (acute) lower respiratory infection; K22.10 Ulcer of esophagus without bleeding; N25.81 Secondary hyperparathyroidism of renal origin; K26.9 Duodenal ulcer, unspecified as acute or chronic, without hemorrhage or perforation; Z99.2 Dependence on renal dialysis; I25.10 Atherosclerotic heart disease of native coronary artery without angina pectoris; D63.1 Anemia in chronic kidney disease; K25.9 Gastric ulcer, unspecified as acute or chronic, without hemorrhage or perforation; K57.30 Diverticulosis of large intestine without perforation or abscess without bleeding; F03.90 Unspecified dementia, unspecified severity, without behavioral disturbance, psychotic disturbance, mood disturbance, and anxiety; F41.9 Anxiety disorder, unspecified; K29.50 Unspecified chronic gastritis without bleeding; K64.9 Unspecified hemorrhoids; L29.9 Pruritus, unspecified; L57.0 Actinic keratosis; Y95 Nosocomial condition; F17.210 Nicotine dependence, cigarettes, uncomplicated; Z91.14 Patient's other noncompliance with medication regimen; Z95.5 Presence of coronary angioplasty implant and graft

== ENCOUNTER 2017-04-29 18:27 | Inpatient (IN) | payer MEDICARE, OTHER ==
[2017-04-29 18:27] VITALS: BMI 22.1
[2017-04-29 19:26] LABS: BASO # 0.1 K/mm3 (0.0-2.0); BASO % 1.4 % (0.0-3.0); EOS # 0.2 (0.0-0.7); EOS % 2.4 % (1.5-5.0); GRAN # 5.81 (1.4-6.5); GRAN % 78.7 % (50.0-68.0); HEMOGLOBIN 9.9 g/dL (14.0-18.0); LYMPH # 0.8 (1.2-3.4); MEAN CELL VOLUME 102.7 fl (80.0-105.0); MEAN CORPUSCULAR HGB CONC 32.1 g/dl (31.0-37.0); MEAN PLATELET VOLUME 9.1 fl (7.0-11.0); MONO # 0.5 (0.1-0.6); MONO % 6.5 % (1.0-6.0); RED CELL DISTRIBUTION WIDTH 17.7 % (11.5-14.5); WHITE BLOOD COUNT 7.4 10^3/ul (4.5-11.0)
--- NOTE | 2017-04-29 19:26 | ED PDOC ---
Arrival/HPI <Jay Garcia - Last Filed: 04/29/17 21:14> <Korey Lora - Last Filed: 04/29/17 22:30> - General Chief Complaint: Abdominal Pain Time Seen by Provider: 04/29/17 18:30 - History of Present Illness Narrative History of Present Illness (Text): 04/29/17 19:21 Pt is a 56 yo M with PMH of ESRD on HD (MWF), COPD, HTN, anemia, NSTEMI, PUD, and recent PNA presents to ED with abdominal pain and blood when coughing. Pt states that abdominal pain began yesterday is diffuse, dull, and constant. Pt denies any alleviating or aggravating factors. Pt states that appetite is decreased, but denies any nausea or vomiting. Pt states that last BM was yesterday and was soft/normal without any signs of blood. In regards hemoptysis , pt states that yesterday he had a productive cough with white phlegm. After coughing constantly blood clots started. Pt denies any streaks of blood or diffuse bleeding. Pt went dialysis yesterday, where he states that pulled 4L. Pt admits to headaches after dialysis. Today, patient denies CP, n/v/d, constipation, fever, chills, [place], dizziness. (Jay Garcia) Past Medical History - Provider Review Nursing Documentation Reviewed: Yes - Past History Past History: Non-Contributing - Infectious Disease Hx of Infectious Diseases: None - Tetanus Immunization Tetanus Immunization: Unknown - Cardiac Hx Hypertension: Yes - Pulmonary Hx Chronic Obstructive Pulmonary Disease (COPD): Yes - Neurological Hx Paralysis: No - HEENT Hx HEENT Disorder: No - Renal Hx Renal Disorder: Yes Hx Dialysis: Yes Date of Last Dialysis Treatment: 04/28/17 - Endocrine/Metabolic Hx Endocrine Disorders: No - Hematological/Oncological Hx Blood Transfusions: Yes (03/12/17) Hx Blood Transfusion Reaction: No - Integumentary Other/Comment: has calcium sores scattred his back, some areas of dry scabs with raw sores on his back - Musculoskeletal/Rheumatological Hx Musculoskeletal Disorders: No - Gastrointestinal Hx Gastrointestinal Disorders: No - Genitourinary/Gynecological Other/Comment: Anuria - Psychiatric Hx Psychophysiologic Disorder: No Hx Substance Use: No - Surgical History Other/Comment: Left forearm av fistula , r chest udall insertion and removal, excision throat cyst - Anesthesia Hx Anesthesia Reactions: No Hx Malignant Hyperthermia: No - Suicidal Assessment Feels Threatened In Home Enviroment: No <Jay Garcia - Last Filed: 04/29/17 21:14> Family/Social History - Physician Review Nursing Documentation Reviewed: Yes Family/Social History: Other (Non-contributory) Smoking Status: Current Some Days Smoker Hx Alcohol Use: No Hx Substance Use: No Hx Substance Use Treatment: No <Jay Garcia - Last Filed: 04/29/17 21:14> Allergies/Home Meds <Jay Garcia - Last Filed: 04/29/17 21:14> <Korey Lora Susie - Last Filed: 04/29/17 22:30> Allergies/Adverse Reactions: Allergies No Known Allergies Allergy (Verified 04/29/17 18:37) Home Medications: Home Meds Medication Instructions Recorded Confirmed Calcium Acetate [Phoslo] 667 mg PO WM 01/18/16 04/29/17 Amlodipine/Valsartan 1 tab PO DAILY 01/29/17 04/29/17 [Amlodipine-Valsartan 10-320 mg] Review of Systems - Review of Systems Constitutional: Normal Eyes: Normal ENT: Normal Respiratory: SOB, Cough, Sputum Cardiovascular: Normal Gastrointestinal: Abdominal Pain, Appetite Changes (decreased). absent: Stool Changes, Constipation, Diarrhea, Nausea, Vomiting Genitourinary Male: Normal Musculoskeletal: Normal Skin: Normal Neurological: Normal Endocrine: Normal Hemo/Lymphatic: Normal Psychiatric: Normal <Jay Garcia - Last Filed: 04/29/17 21:14> Physical Exam Vital Signs Reviewed: Yes Temperature: Afebrile Blood Pressure: Normal Pulse: Regular Respiratory Rate: Normal Appearance: Positive for: Well-Appearing Pain Distress: Mild Mental Status: Positive for: Alert and Oriented X 3 - Systems Exam Head: Present: Atraumatic, Normocephalic Extroacular Muscles: Present: EOMI Mouth: Present: Moist Mucous Membranes Neck: Present: Normal Range of Motion Respiratory/Chest: Present: Clear to Auscultation, Rales (right lower base). No : Respiratory Distress, Accessory Muscle Use, Wheezes, Rhonchi Cardiovascular: Present: Regular Rate and Rhythm, Normal S1, S2. No: Murmurs, Rub, Gallop Abdomen: Present: Tenderness (diffuse), Scars (LLQ, likely 2/2 peritoneal dialysis). No: Distention, Peritoneal Signs, Rebound, Guarding, Mass/ Organomegaly Back: Present: Normal Inspection Upper Extremity: Present: Normal Inspection, Other (Left forearm AV fistula. Palpable thrill, audible bruits.) Lower Extremity: Present: Normal Inspection Neurological: Present: GCS=15 Skin: Present: Warm, Dry, Pale Psychiatric: Present: Alert, Oriented x 3 <Jay Garcia - Last Filed: 04/29/17 21:14> Vital Signs Temp Pulse Resp BP Pulse Ox 04/29/17 22:12 98.1 F 90 18 161/89 H 88 L 04/29/17 19:59 90 19 161/103 H 100 04/29/17 18:28 97.8 F 86 18 146/86 91 L Medical Decision Making <Jay Garcia - Last Filed: 04/29/17 21:14> - Critical Care Critical Care Minutes: 60 minutes <Korey Lora - Last Filed: 04/29/17 22:30> ED Course and Treatment: 04/29/17 19:31 Assessment: 56 yo M presents to ED with abdominal pain and hemoptysis. Plan: - CBC - CMP - Coags - Cardiac enzymes - BNP - Lipase - Hemoccult - EKG - CXR - Abdomen x-ray - Protonix Hemoccult test: guaiac negative. 04/29/17 19:56 CXR as read by myself shows moderate vascular congestion. No signs of consolidation. Abdominal x-ray as read by myself shows no active disease process. 04/29/17 20:[address] depression in lateral leads, unchanged from previous EKG. LVH. Rate 92. 04/29/17 20:57 Discussed patient and results with Dr. Gomez, who recommends urgent dialysis. 04/29/17 21:[address] Reese, who agrees with plan and accepts patient under her service. Admit as inpatient to telemetry. (Jay Garcia) 04/29/17 19:31 56 yo male with abdominal pain and hemoptysis. Agree with resident history and physical, assessment and plan. Patient added that he also gets short of breathe on exertion but not at rest. No chest pain. Oral membranes moist; no blood in mouth; no loose teeth Cardio: RRR, no m/g/r Resp: Right lower lung field with crackles Abd: Soft, NT, ND, BSx4 EKG: NSR at 92 bpm with LVH, ST depression in V5, V6, No change from 03/12/17 04/29/17 20:[address] Gomez, Renal, Dr. Bolivar, Cariologist, and Dr. Reese, PMD. Pending call back. 04/29/17 21:31 Case discussed with physician locums urgent care Dr. Bolivar, who recommends Heparin bolus and IV drip, Metropolol 25 mg BID and Aspirin 325 mg x1. Case discussed with pipe roller Dr. Gomez, who recommends urgent dialysis to be done this evening. Case discussed with Dr. Reese who accepts patient to her service. She agreeds we would treat with Rocephin IV. 04/29/17 22:[address] Medeiros who accepts the patient to the ICU. Estimated weight obtained by staff. Heparin IV bolus and drip ordered as per Dr. Bolivar Cardiology. Dialysis team at bedside for dialysis. (Korey Lora) - Lab Interpretations Lab Results: 04/29/17 19:00 04/29/17 19:00 Lab Results 04/29/17 19:00: Sodium 139, Potassium 5.2 H, Chloride 88 L, Carbon Dioxide 35 H , Anion Gap 21 H, BUN 66 H, Creatinine 8.5 H* D, Est GFR ( Amer) 8, Est GFR (Non-Af Amer) 7, Random Glucose 102, Calcium 11.2 H, Magnesium 2.8 H, Total Bilirubin 0.7, AST 57, ALT 27, Alkaline Phosphatase 87, Troponin I 1.98 H* D, NT -Pro-B Natriuret Pep 348309 H, Total Protein 7.8, Albumin 4.4, Globulin 3.4, Albumin/Globulin Ratio 1.3, Lipase 74 04/29/17 19:00: PT 11.3, INR 0.99, APTT 27.3 04/29/17 19:00: WBC 7.4 D, RBC 3.00 L, Hgb 9.9 L, Hct 30.8 L, MCV 102.7 D, MCH 33.0, MCHC 32.1, RDW 17.7 H, Plt Count 201, MPV 9.1, Gran % 78.7 H, Lymph % (Auto) 11.0 L, [place] % (Auto) 6.5 H, Eos % (Auto) 2.4, Baso % (Auto) 1.4, Gran # 5.81, Lymph # (Auto) 0.8 L, [place] # (Auto) 0.5, Eos # (Auto) 0.2, Baso # (Auto) 0.10 - RAD Interpretation Radiology Orders: 04/29/17 19:08 CHEST PORTABLE [RAD] Stat 04/29/17 19:09 ABDOMEN PORTABLE 2 VIEWS [RAD] Stat - Medication Orders Current Medication Orders: Heparin Sodium (Porcine) (Heparin) 5,000 units 70 units/kg (5000 units) IV ONCE ONE PRN Reason: Protocol Stop: 04/29/17 22:28 Discontinued Medications Albuterol/Ipratropium (Duoneb 3 Mg/0.5 Mg (3 Ml) Ud) 3 ml IH STAT STA Stop: 04/29/17 19:39 Last Admin: 04/29/17 19:53 Dose: 3 ml Aspirin (Aspirin Chewable) 324 mg PO STAT STA Stop: 04/29/17 21:30 Metoprolol Succinate (Toprol Xl) 25 mg PO STAT STA Stop: 04/29/17 21:30 Last Admin: 04/29/17 22:21 Dose: Pantoprazole Sodium (Protonix Inj) 40 mg IVP STAT STA Stop: 04/29/17 19:09 Last Admin: 04/29/17 19:21 Dose: 40 mg IVP Administration Document 04/29/17 19:21 AD (Rec: 04/29/17 19:21 AD [id number]) Charges for Administration # of IVP Administrations 1 Disposition/Present on Arrival - Present on Arrival History of DVT/PE: No History of Uncontrolled Diabetes: No Urinary Catheter: No History of Decub. Ulcer: No History Surgical Site Infection Following: None <Jay Garcia - Last Filed: 04/29/17 21:14> - Present on Arrival Any Indicators Present on Arrival: No - Disposition Have Diagnosis and Disposition been Completed?: Yes Disposition Time: 20:51 Patient Plan: Admission <Korey Lora - Last Filed: 04/29/17 22:30> - Disposition Diagnosis: ESRD (end stage renal disease), Abdominal pain, Hemoptysis Disposition: HOSPITALIZED Patient Problems: Current Active Problems Problem Status Onset ESRD (end stage renal disease) Acute Abdominal pain Acute Hemoptysis Acute Condition: FAIR
[2017-04-29 19:35] LABS: INR 0.99 (0.93-1.08); PARTIAL THROMBOPLASTIN TIME 27.3 Seconds (25.1-36.5); PROTHROMBIN TIME 11.3 SECONDS (9.4-12.5)
[2017-04-29] MEDS ORDERED: Albuterol-Ipratrop 3 mg / 0.5 (3 ml) UD IH STA (19:38)
[2017-04-29 20:08] LABS: ALB/GLOB RATIO 1.3 (1.1-1.8); ALBUMIN 4.4 g/dL (3.0-4.8); CALCIUM 11.2 mg/dL (8.4-10.5)
[2017-04-29 20:37] LABS: TROPONIN I 1.98 ng/mL
[2017-04-29] MEDS ORDERED: Metoprolol Succinate 25 mg XL Tab PO STA (21:29)
[2017-04-29] MEDS ORDERED: Heparin25000 units/250ml 1/2NS 25,000 UNITS/250 ML BAG IV SCH (22:30)
--- NOTE | 2017-04-30 00:41 | CP.PCM.CON ---
History of Present Illness - History of Present Illness History of Present Illness: Mari Moss, PGY1, ICU Consult Note for Dr Medeiros: CC: abdominal pain 56 yo M with PMH of ESRD on HD (MWF), COPD, HTN, anemia, NSTEMI, PUD, and recent PNA presents to ED with abdominal pain that started yesterday night. Pt states that he had meat loaf last night, started having epigastric/ periumbilical pain, achy in nature, that later became diffuse, radiating to left sided chest, has associated sob. Denies fever, chills, nausea, diaphoresis , syncope, palpitations. Pt also reports hemoptysis for past few weeks, that occurs once in a while, has not occurred within past few days. Denies weakness, dizziness, excessive fatigue, headache. Pt underwent dialysis yesterday as scheduled. In ED, pt afebrile, hypertensive 161/103. Troponin 1.98 (prev admissions 0.17). EKG shows NSR 92, ST depression in lateral leads (unchanged from previous ekg) . Stool guaic negative. Given ASA 325 mg, metoprolol 25 mg POx1, protonix and duonebs, loading dose of heparin 5000 units, started on heparin drip. 12 point ROS obtained and negative, except as per HPI. PMH: ESRD on hemodialysis, COPD, used to be on peritoneal in the past, HTN, chronic back pain, anemia PSH: peritoneal dialysis catheter placement in past All: NKA Family HX: noncontributory MEDS: reviewed as per APR; confirm with pt's pharmacy in AM Social HX: Smokes 1/2 ppd x 20 years. h/o drug and etoh abuse in the past. Lives with /son. walks independently. PMD [facility]smel Renal Gomez Review of Systems - Review of Systems All systems: reviewed and no additional remarkable complaints except Review of Systems: as per hPI Past Patient History - Infectious Disease Hx of Infectious Diseases: None - Tetanus Immunizations Tetanus Immunization: Unknown - Past Medical History & Family History Past Medical History?: Yes - Past Social History Smoking Status: Current Some Days Smoker - CARDIAC Hx Hypertension: Yes - PULMONARY Hx Chronic Obstructive Pulmonary Disease (COPD): Yes - NEUROLOGICAL Hx Paralysis: No - HEENT Hx HEENT Problems: No - RENAL Hx Chronic Kidney Disease: Yes Hx Dialysis: Yes Date of Last Dialysis Treatment: 04/28/17 - ENDOCRINE/METABOLIC Hx Endocrine Disorders: No - HEMATOLOGICAL/ONCOLOGICAL Hx Blood Transfusions: Yes (03/12/17) Hx Blood Transfusion Reaction: No - INTEGUMENTARY Other/Comment: has calcium sores scattred his back, some areas of dry scabs with raw sores on his back - MUSCULOSKELETAL/RHEUMATOLOGICAL Hx Musculoskeletal Disorders: No - GASTROINTESTINAL Hx Gastrointestinal Disorders: No - GENITOURINARY/GYNECOLOGICAL Other/Comment: Anuria - PSYCHIATRIC Hx Psychophysiologic Disorder: No Hx Substance Use: No - SURGICAL HISTORY Other/Comment: Left forearm av fistula , r chest udall insertion and removal, excision throat cyst - ANESTHESIA Hx Anesthesia Reactions: No Hx Malignant Hyperthermia: No Meds Allergies/Adverse Reactions: Allergies Allergy/AdvReac Type Severity Reaction Status Date / Time No Known Allergies Allergy Verified 04/29/17 18:37 - Medications Medications: Current Medications Amlodipine Besylate (Norvasc) 10 mg PO DAILY MARK Calcium Acetate (Phoslo) 667 mg PO WM MARK Famotidine (Pepcid) 20 mg PO HS MARK Heparin Sodium/Sodium Chloride (Heparin 04289 Units/250ml 1/2 Normal Saline) 25 ,000 units in 250 mls @ 8.628 mls/hr IV .Q24H MARK; 12 UNITS/KG/HR PRN Reason: Protocol Ceftriaxone Sodium (Rocephin 1 Gram Ivpb) 1 gm in 100 mls @ 100 mls/hr IVPB DAILY MARK PRN Reason: Protocol Levalbuterol HCl (Xopenex) 1.25 mg IH [id number] MARK Metoprolol Succinate (Toprol Xl) 25 mg PO BRK MARK Pantoprazole Sodium (Protonix Inj) 40 mg IVP DAILY MARK Valsartan (Diovan) 320 mg PO DAILY MARK Physical Exam - Constitutional Appears: Non-toxic, No Acute Distress - Head Exam Head Exam: ATRAUMATIC, NORMOCEPHALIC - Eye Exam Eye Exam: EOMI, PERRL. absent: Conjunctival injection, Nystagmus, Scleral icterus Pupil Exam: NORMAL ACCOMODATION, PERRL. absent: Miosis - ENT Exam ENT Exam: Mucous Membranes Dry - Neck Exam Neck exam: Positive for: Normal Inspection - Respiratory Exam Respiratory Exam: Clear to Auscultation Bilateral, NORMAL BREATHING PATTERN. absent: Accessory Muscle Use, Rales, Rhonchi, Wheezes, Stridor - Cardiovascular Exam Cardiovascular Exam: RRR, +S1, +S2. absent: Systolic Murmur - GI/Abdominal Exam GI & Abdominal Exam: Normal Bowel Sounds, Soft, Tenderness (epigastric/upper abdominal quadrants). absent: Distended, Firm, Guarding, Pulsatile Mass, Rebound, Rigid Additional comments: + healing incisional sites noted in left abdominal area (previous peritoneal catheter sites) - Extremities Exam Extremities exam: Positive for: normal capillary refill, normal inspection, pedal pulses present. Negative for: calf tenderness, pedal edema - Back Exam Back exam: NORMAL INSPECTION - Neurological Exam Neurological exam: Alert, Oriented x3 - Psychiatric Exam Psychiatric exam: Normal Affect, Normal Mood - Skin Skin Exam: Dry, Normal Color, Warm Results - Vital Signs Recent Vital Signs: Last Vital Signs Temp 98.1 F 04/29/17 22:12 Pulse 91 H 04/29/17 22:40 Resp 18 04/29/17 22:40 BP 145/85 04/29/17 22:40 Pulse Ox 87 L 04/29/17 22:40 - Labs Result Diagrams: 04/29/17 19:00 04/29/17 19:00 Labs: Laboratory Results - last 24 hr 04/29/17 04/29/17 04/29/17 19:00 19:00 19:00 WBC 7.4 D RBC 3.00 L Hgb 9.9 L Hct 30.8 L MCV 102.7 D MCH 33.0 MCHC 32.1 RDW 17.7 H Plt Count 201 MPV 9.1 Gran % 78.7 H Lymph % (Auto) 11.0 L [place] % (Auto) 6.5 H Eos % (Auto) 2.4 Baso % (Auto) 1.4 Gran # 5.81 Lymph # (Auto) 0.8 L [place] # (Auto) 0.5 Eos # (Auto) 0.2 Baso # (Auto) 0.10 PT 11.3 INR 0.99 APTT 27.3 Sodium 139 Potassium 5.2 H Chloride 88 L Carbon Dioxide 35 H Anion Gap 21 H BUN 66 H Creatinine 8.5 H* D Est GFR ( Amer) 8 Est GFR (Non-Af Amer) 7 Random Glucose 102 Calcium 11.2 H Magnesium 2.8 H Total Bilirubin 0.7 AST 57 ALT 27 Alkaline Phosphatase 87 Troponin I 1.98 H* D NT-Pro-B Natriuret Pep 719231 H Total Protein 7.8 Albumin 4.4 Globulin 3.4 Albumin/Globulin Ratio 1.3 Lipase 74 Assessment & Plan - Assessment and Plan (Free Text) Assessment: 56 year old male with PMH ESRD on hemodialysis MWF, COPD, NSTEMI, used to be on peritoneal dialysis in the past, HTN, chronic back pain, anemia, presents for abdominal pain, found to have NSTEMI: NSTEMI: - troponin 1.98. EKG official read pending - f/u serial trops. EKG in AM - loading dose of heparin given. Heparin drip started - ASA 81 mg, metoprolol 25 mg - Cardiology consulted. F/u recs. - NPO after midnight Abdominal pain: 2/2 gastritis vs GERD vs gastric ulcers vs ACS - lipase normal - Protonix 40 IV - work up NSTEMI. Cardio on board. Hemoptysis: - Pt has had previous history - Macrocyctic anemia; likely mixed ACD and macrocytic - Vitamin B12, folate f/u - Hgb 9.9 (baseline 7.1-8). MCV 102.7 - EGD 01/2017 showed nonbleeding esophageal/gastric/duodenal ulcers. chronic gastritis. - Stool guaic neg this admission - Currently not bleeding - Consider GI consult if any worsening. Hx of ESRD: - home hemodialysis MWF - BUN/Cr 66/8.5, GFR 7 - K 5.2, CO2 35, agap 16 - Dr Gomez on board. Appreciate recs - C/w home med calcium acetate - Undergoing hemodialysis currently - daily cmp Hx of COPD: - Xopenex prn - Cont to monitor - O2 prn PPX: Protonix, Heparin drip Discussed with Dr Medeiros. - Date & Time Date: 04/30/17 Time: 00:43
[2017-04-30 02:54] LABS: HDL CHOLESTEROL 39 mg/dL (29-60)
[2017-04-30 03:04] LABS: LDL CHOLESTEROL 89 mg/dL (0-129)
--- NOTE | 2017-04-30 05:29 | HP ---
HISTORY OF PRESENT ILLNESS: The patient is a 56-year-old came into emergency room because of diffuse abdominal pain intermittently, happening since yesterday. Denies any diarrhea. Feels nauseous, decreased appetite. Also complained of cough and congestion, had episode of hemoptysis. No fever, but complained of chills. Patient states he had last bowel movement yesterday. No history of rectal bleeding. The patient is already having cough for few days, but got worse lately. However he denies chest pain. No fever. Has chills. PAST MEDICAL HISTORY: Significant for; 1. COPD. 2. Hypertension. 3. Coronary artery disease. Patient had cardiac cath in 2013, and at that point he was found to have nonocclusive coronaries. 4. End-stage renal disease on hemodialysis. Patient was on peritoneal dialysis, but he has recurrent abdominal infection, so peritoneal catheter was removed and has been on hemodialysis for almost a year. 5. Chronic anemia. PAST SURGICAL HISTORY: Significant for left arm AVM. SOCIAL HISTORY: He lives by himself. Active smoker, socially drinks. ALLERGIES: HE HAS NO KNOWN DRUG ALLERGIES. MEDICATIONS AT HOME: He is on Exforge 10/320 daily, PhosLo 667 with each meals, Protonix 40 daily, ranitidine 75 mg twice a day. REVIEW OF SYSTEMS: Significant for abdominal pain, cough and congestion. PHYSICAL EXAMINATION: GENERAL: He is awake and alert, able to communicate, looks pale. VITAL SIGNS: He is afebrile, pulse 90, respirations 18, blood pressure 161/89. LUNGS: Bilateral good air flow, few episodes of occasional expiratory rhonchi. HEART: S1, S2 audible. ABDOMEN: Soft. Has slight epigastric discomfort. No rebound, no guarding. EXTREMITIES: Bilateral legs no edema. LABORATORY DATA: WBC 7.4, hemoglobin 9.9, hematocrit 30.8, platelet of 201. PT 11.3, INR 0.99. Chemistry: Sodium 139, potassium 5.2, chloride 88, CO2 35, BUN 66, creatinine , blood sugar of 102. Calcium 11.2, magnesium 2.8, troponin 1.98. X-ray of the abdomen is unremarkable. X-ray of chest do not show any infiltrate. ASSESSMENT: 1. Asthmatic bronchitis. 2. Chronic obstructive pulmonary disease exacerbation. 3. End-stage renal disease, on hemodialysis. 4. Hemoptysis, rule out underlying pneumonia. 5. Positive troponin, probably underlying ischemia. It might be falsely elevated because of end-stage renal disease. 6. Abdominal pain, etiology unclear yet. PLAN: We will start patient on nebulizer treatment. Start him on metoprolol, aspirin 81 daily. Start him on Rocephin and Protonix. Cardiology consult by Dr. Bolivar. Nephrology consult by Dr. Gomez has been requested. Followup CBC, CMP, troponin in a.m. I will order for CT of the chest. We will reevaluate in a.m. Valdemar Reese MD
[2017-04-30 06:50] LABS: BASO # 0.08 K/mm3 (0.0-2.0); BASO % 1.2 % (0.0-3.0); EOS # 0.3 (0.0-0.7); EOS % 4.4 % (1.5-5.0); GRAN # 5.17 (1.4-6.5); GRAN % 75.6 % (50.0-68.0); HEMOGLOBIN 9.7 g/dL (14.0-18.0); LYMPH # 0.8 (1.2-3.4); LYMPH % 11.8 % (22.0-35.0); MEAN CORPUSCULAR HEMOGLOBIN 32.7 pg (25.0-35.0); MONO # 0.5 (0.1-0.6); RBC 2.97 10^6/uL (3.5-6.1); RED CELL DISTRIBUTION WIDTH 17.4 % (11.5-14.5); WHITE BLOOD COUNT 6.8 10^3/ul (4.5-11.0)
--- NOTE | 2017-04-30 07:09 | CP.CCUPN ---
<Angie Dutta - Last Filed: 04/30/17 11:03> CCU Subjective - Physician Review Subjective (Free Text): 04/30/17 9:01 Patient with h/o esrd and NSTEMI admitted with sob and was found to be in chf exacerbation. s/p HD last night. Patient is scheduled to get another HD today. Denies cp, sob, nausea, vomiting or diarrhea. Patient had transient mild nose bleed this am, however it has since resolved. Patient states the abdominal pain has improved as well. wants to eat. CCU Objective - Vital Signs / Intake & Output Vital Signs (Last 4 hours): Vital Signs Pulse Resp BP Pulse Ox 04/30/17 06:20 88 20 93 L 04/30/17 06:10 88 19 96 04/30/17 06:00 86 21 159/92 H 94 L 04/30/17 05:50 89 22 87 L 04/30/17 05:40 88 19 89 L 04/30/17 05:30 91 H 18 90 L 04/30/17 05:20 87 27 H 88 L 04/30/17 05:10 89 91 L 04/30/17 05:00 89 26 H 153/91 H 87 L 04/30/17 04:50 92 H 17 95 04/30/17 04:40 85 33 H 92 L 04/30/17 04:30 87 15 85 L 04/30/17 04:20 96 H 38 H 86 L 04/30/17 04:10 88 13 91 L 04/30/17 04:00 86 18 157/96 H 82 L 04/30/17 03:50 89 16 90 L 04/30/17 03:40 91 H 91 L 04/30/17 03:30 89 22 90 L 04/30/17 03:20 88 22 88 L 04/30/17 03:10 90 20 88 L Intake and Output (Last 8hrs): Intake & Output 04/29/17 04/30/17 04/30/17 22:59 06:59 14:59 Weight 158 lb - Physical Exam Head: Positive for: Atraumatic, Normocephalic Extroacular Muscles: Positive for: EOMI Mouth: Positive for: Moist Mucous Membranes Neck: Positive for: Normal Range of Motion Respiratory/Chest: Positive for: Clear to Auscultation, Rales (right lower base) . Negative for: Respiratory Distress, Accessory Muscle Use, Wheezes, Rhonchi Cardiovascular: Positive for: Regular Rate and Rhythm, Normal S1, S2. Negative for: Murmurs, Rub, Gallop Abdomen: Positive for: Scars (LLQ, likely 2/2 peritoneal dialysis). Negative for: Tenderness, Distention, Peritoneal Signs, Rebound, Guarding, Mass/ Organomegaly Back: Positive for: Normal Inspection Upper Extremity: Positive for: Normal Inspection, Other (Left forearm AV fistula. Palpable thrill, audible bruits.) Lower Extremity: Positive for: Normal Inspection Neurological: Positive for: GCS=15 Skin: Positive for: Warm, Dry, Pale Psychiatric: Positive for: Alert, Oriented x 3, Normal Insight, Normal Concentration - Medications Active Medications: Active Medications Generic Name Dose Route Start Last Admin Trade Name Freq PRN Reason Stop Dose Admin Aspirin 81 mg 04/30/17 10:00 Aspirin Chewable PO DAILY [facility] Atorvastatin Calcium 80 mg 04/30/17 17:00 Lipitor PO DIN [facility] Calcium Acetate 667 mg 04/30/17 08:00 Phoslo PO WM [facility] Famotidine 20 mg 04/29/17 23:45 04/30/17 00:00 Pepcid PO 20 mg HS MARK Administration Heparin Sodium/Sodium Chloride 25,000 units in 250 mls @ 8.628 mls/hr 22:30 04/30/17 01:51 Heparin 38347 Units/250ml 1/2 Normal Saline IV 12 units/kg/hr .Q24H MARK 8.628 mls/hr Protocol Administration 12 UNITS/KG/HR Ceftriaxone Sodium 1 gm in 100 mls @ 100 mls/hr 04/30/17 10:00 Rocephin 1 Gram Ivpb IVPB DAILY [facility] Protocol Levalbuterol HCl 1.25 mg 04/30/17 02:00 Xopenex IH [id number] [facility] Metoprolol Succinate 25 mg 04/30/17 08:00 Toprol Xl PO BRK [facility] Pantoprazole Sodium 40 mg 04/30/17 10:00 Protonix Inj IVP DAILY [facility] Valsartan 320 mg 04/30/17 10:00 Diovan PO DAILY MARK - Patient Studies Lab Studies: Lab Studies 04/30/17 04/30/17 04/30/17 Range/Units 06:00 01:10 01:10 APTT 31.1 (25.1-36.5) Seconds Troponin I 2.17 H* ng/mL Triglycerides 156 (35-160) mg/dL Cholesterol 176 (130-200) mg/dL LDL Cholesterol Direct 89 (0-129) mg/dL HDL Cholesterol 39 (29-60) mg/dL Laboratory Results - last 24 hr 04/30/17 04/30/17 04/30/17 01:10 01:10 06:00 APTT 31.1 Troponin I 2.17 H* Triglycerides 156 Cholesterol 176 LDL Cholesterol Direct 89 HDL Cholesterol 39 Critical Care Progress Note - Nutrition Nutrition: Nutrition Category Date Time Status Liquid Diet [DIET] Diets 04/29/17 Breakfast Ordered Assessment/Plan - Assessment and Plan (Free Text) Assessment: Patient is a 56 year old male with PMHx of ESRD on hemodialysis MWF, COPD, NSTEMI, CHF with LVEF of 25% ( 02/2017) admitted with decompensated CHF, s/p HD last night. Patient had troponin leak with no ekg changes, possible NSTEMI. Plan: Neuro: stable at baseline Pulm: SOB resolved post HD. Supplemental oxygen prn to [place] O2 sat above 90%. Cardiac: Decompensated CHF (last echo with LVEF of /). + Troponin leak and elevated pro bnp, r/o NSTEMI Troponin trending, Pals Nurse following Patient to get plavix and asa load, on heparin drip, NPO for cardiac cath tomorrow as per cardio. ID: Lower lobe infiltration, r/o pneumonia. No leukocytosis and afebrile. was started on Rocephin, will obtain procal. Cultures are pending. Renal: Patient with ESRD on HD, getting extra dialysis today due to fluid overloaded state. Endo: Maintain normoglycemia Heme: H/h stable, will continue to monitor. Gi: patient states abdominal pain resolved. no acute finding on abdominal x- ray. will start renal diet. Pepcid for gi prophylaxis. DVT prophyalxis: patient is on heparin drip for NSTEMI. Dispo: patient is stable, to be transferred to [facility]. Patient seen, examined and case discussed with the health equipment servicer. - Date & Time Date: 04/30/17 Time: 11:25 <Chintan Jones - Last Filed: 04/30/17 11:30> CCU Objective - Vital Signs / Intake & Output Vital Signs (Last 4 hours): Vital Signs Temp Pulse Resp BP Pulse Ox 04/30/17 09:30 83 141/82 91 L 04/30/17 09:20 84 21 91 L 04/30/17 09:15 84 20 143/78 63 L 04/30/17 09:10 88 92 L 04/30/17 09:00 97.7 F 85 25 H 156/102 H 87 L 04/30/17 08:58 88 19 160/94 H 100 04/30/17 08:57 90 23 04/30/17 08:40 90 04/30/17 08:35 89 155/86 H 04/30/17 08:30 88 15 04/30/17 08:20 90 20 04/30/17 08:10 95 H 28 H 04/30/17 08:00 86 23 155/86 H 04/30/17 07:50 88 30 H 04/30/17 07:40 89 26 H 04/30/17 07:30 89 29 H Intake and Output (Last 8hrs): Intake & Output 04/29/17 04/30/17 04/30/17 22:59 06:59 14:59 Weight 158 lb - Medications Active Medications: Active Medications Generic Name Dose Route Start Last Admin Trade Name Freq PRN Reason Stop Dose Admin Aspirin 81 mg 04/30/17 10:00 Aspirin Chewable PO DAILY [facility] Atorvastatin Calcium 80 mg 04/30/17 17:00 Lipitor PO DIN [facility] Calcium Acetate 667 mg 04/30/17 08:00 04/30/17 08:35 Phoslo PO 667 mg WM [facility] Administration Clopidogrel Bisulfate 75 mg 05/01/17 10:00 Plavix PO DAILY [facility] Famotidine 20 mg 04/29/17 23:45 04/30/17 00:00 Pepcid PO 20 mg HS MARK Administration Heparin Sodium/Sodium Chloride 25,000 units in 250 mls @ 8.628 mls/hr 22:30 04/30/17 01:51 Heparin 36084 Units/250ml 1/2 Normal Saline IV 05/01/17 03:00 12 units/kg/ hr .Q24H MARK 8.628 mls/hr Protocol Administration 12 UNITS/KG/HR Ceftriaxone Sodium 1 gm in 100 mls @ 100 mls/hr 04/30/17 10:00 Rocephin 1 Gram Ivpb IVPB DAILY [facility] Protocol Levalbuterol HCl 1.25 mg 04/30/17 02:00 04/30/17 08:44 Xopenex IH 1.25 mg [id number] [facility] Administration Metoprolol Succinate 25 mg 04/30/17 08:00 04/30/17 08:35 Toprol Xl PO 25 mg BRK MARK Administration Pantoprazole Sodium 40 mg 04/30/17 10:00 Protonix Inj IVP DAILY [facility] Valsartan 320 mg 04/30/17 10:00 Diovan PO DAILY [facility] - Patient Studies Lab Studies: Lab Studies 04/30/17 04/30/17 04/30/17 Range/Units 06:00 06:00 06:00 WBC 6.8 (4.5-11.0) 10^3/ul RBC 2.97 L (3.5-6.1) 10^6/uL Hgb 9.7 L (14.0-18.0) g/dL Hct 30.3 L (42.0-52.0) % MCV 102.0 (80.0-105.0) fl MCH 32.7 (25.0-35.0) pg MCHC 32.0 (31.0-37.0) g/dl RDW 17.4 H (11.5-14.5) % Plt Count 184 (120.0-450.0) 10^3/uL MPV 9.0 (7.0-11.0) fl Gran % 75.6 H (50.0-68.0) % Lymph % (Auto) 11.8 L (22.0-35.0) % [place] % (Auto) 7.0 H (1.0-6.0) % Eos % (Auto) 4.4 (1.5-5.0) % Baso % (Auto) 1.2 (0.0-3.0) % Gran # 5.17 (1.4-6.5) Lymph # (Auto) 0.8 L (1.2-3.4) [place] # (Auto) 0.5 (0.1-0.6) Eos # (Auto) 0.3 (0.0-0.7) Baso # (Auto) 0.08 (0.0-2.0) K/mm3 APTT 31.1 (25.1-36.5) Seconds Sodium 138 (132-148) mmol/L Potassium 4.8 (3.6-5.0) mmol/L Chloride 94 L (98-107) mmol/L Carbon Dioxide 32 (21-33) mmol/L Anion Gap 16 (10-20) BUN 41 H (7-21) mg/dL Creatinine 6.7 H (0.8-1.5) mg/dl Est GFR ( Amer) 10 Est GFR (Non-Af Amer) 9 Random Glucose 91 (70-110) mg/dL Calcium 10.2 (8.4-10.5) mg/dL Phosphorus 4.5 (2.5-4.5) mg/dL Magnesium 2.6 H (1.7-2.2) mg/dL Total Bilirubin 0.6 (0.2-1.3) mg/dL AST 39 (17-59) U/L ALT 29 (7-56) U/L Alkaline Phosphatase 73 (38-126) U/L Troponin I 1.99 H* ng/mL Total Protein 7.1 (5.8-8.3) g/dL Albumin 3.9 (3.0-4.8) g/dL Globulin 3.2 gm/dL Albumin/Globulin Ratio 1.2 (1.1-1.8) Triglycerides 106 (35-160) mg/dL Cholesterol 175 (130-200) mg/dL LDL Cholesterol Direct 96 (0-129) mg/dL HDL Cholesterol 40 (29-60) mg/dL Lipase 53 (23-300) U/L 04/30/17 04/30/17 Range/Units 01:10 01:10 WBC (4.5-11.0) 10^3/ul RBC (3.5-6.1) 10^6/uL Hgb (14.0-18.0) g/dL Hct (42.0-52.0) % MCV (80.0-105.0) fl MCH (25.0-35.0) pg MCHC (31.0-37.0) g/dl RDW (11.5-14.5) % Plt Count (120.0-450.0) 10^3/uL MPV (7.0-11.0) fl Gran % (50.0-68.0) % Lymph % (Auto) (22.0-35.0) % [place] % (Auto) (1.0-6.0) % Eos % (Auto) (1.5-5.0) % Baso % (Auto) (0.0-3.0) % Gran # (1.4-6.5) Lymph # (Auto) (1.2-3.4) [place] # (Auto) (0.1-0.6) Eos # (Auto) (0.0-0.7) Baso # (Auto) (0.0-2.0) K/mm3 APTT (25.1-36.5) Seconds Sodium (132-148) mmol/L Potassium (3.6-5.0) mmol/L Chloride (98-107) mmol/L Carbon Dioxide (21-33) mmol/L Anion Gap (10-20) BUN (7-21) mg/dL Creatinine (0.8-1.5) mg/dl Est GFR ( Amer) Est GFR (Non-Af Amer) Random Glucose (70-110) mg/dL Calcium (8.4-10.5) mg/dL Phosphorus (2.5-4.5) mg/dL Magnesium (1.7-2.2) mg/dL Total Bilirubin (0.2-1.3) mg/dL AST (17-59) U/L ALT (7-56) U/L Alkaline Phosphatase (38-126) U/L Troponin I 2.17 H* ng/mL Total Protein (5.8-8.3) g/dL Albumin (3.0-4.8) g/dL Globulin gm/dL Albumin/Globulin Ratio (1.1-1.8) Triglycerides 156 (35-160) mg/dL Cholesterol 176 (130-200) mg/dL LDL Cholesterol Direct 89 (0-129) mg/dL HDL Cholesterol 39 (29-60) mg/dL Lipase (23-300) U/L Laboratory Results - last 24 hr 04/30/17 04/30/17 04/30/17 01:10 01:10 06:00 WBC 6.8 RBC 2.97 L Hgb 9.7 L Hct 30.3 L MCV 102.0 MCH 32.7 MCHC 32.0 RDW 17.4 H Plt Count 184 MPV 9.0 Gran % 75.6 H Lymph % (Auto) 11.8 L [place] % (Auto) 7.0 H Eos % (Auto) 4.4 Baso % (Auto) 1.2 Gran # 5.17 Lymph # (Auto) 0.8 L [place] # (Auto) 0.5 Eos # (Auto) 0.3 Baso # (Auto) 0.08 APTT Sodium Potassium Chloride Carbon Dioxide Anion Gap BUN Creatinine Est GFR ( Amer) Est GFR (Non-Af Amer) Random Glucose Calcium Phosphorus Magnesium Total Bilirubin AST ALT Alkaline Phosphatase Troponin I 2.17 H* Total Protein Albumin Globulin Albumin/Globulin Ratio Triglycerides 156 Cholesterol 176 LDL Cholesterol Direct 89 HDL Cholesterol 39 Lipase 04/30/17 04/30/17 06:00 06:00 WBC RBC Hgb Hct MCV MCH MCHC RDW Plt Count MPV Gran % Lymph % (Auto) [place] % (Auto) Eos % (Auto) Baso % (Auto) Gran # Lymph # (Auto) [place] # (Auto) Eos # (Auto) Baso # (Auto) APTT 31.1 Sodium 138 Potassium 4.8 Chloride 94 L Carbon Dioxide 32 Anion Gap 16 BUN 41 H Creatinine 6.7 H Est GFR ( Amer) 10 Est GFR (Non-Af Amer) 9 Random Glucose 91 Calcium 10.2 Phosphorus 4.5 Magnesium 2.6 H Total Bilirubin 0.6 AST 39 ALT 29 Alkaline Phosphatase 73 Troponin I 1.99 H* Total Protein 7.1 Albumin 3.9 Globulin 3.2 Albumin/Globulin Ratio 1.2 Triglycerides 106 Cholesterol 175 LDL Cholesterol Direct 96 HDL Cholesterol 40 Lipase 53 Critical Care Progress Note - Nutrition Nutrition: Nutrition Category Date Time Status Renal Diet [DIET] Diets 04/30/17 Breakfast Ordered Assessment/Plan - Assessment and Plan (Free Text) Plan: Patient seen and examined on rounds with resident, agree with note with following additions/exceptions: Patient is 56 year old male with PMHx of ESRD on hemodialysis MWF, COPD, NSTEMI , CHF with LVEF of 25% ( 02/2017) admitted with NSTEMI, decompensated CHF, s/p HD last night. Currently afebrile, HD stabl,e comfortable in NAD, denies SOB, CP. juanito by cardiology. NSTEMi ESRD on HD CHF exacerbation PNA Recommend: - supp o2 as needed - Rocephin, Azithro - Check Procal, UCx, BCx - BP control - HD as per renal - monitor HH - ASA, Plavix, Statin, heparin drip - GI ppx - DVT ppx - Monitor in MICU
[2017-04-30 07:13] LABS: ALB/GLOB RATIO 1.2 (1.1-1.8); ALBUMIN 3.9 g/dL (3.0-4.8); CALCIUM 10.2 mg/dL (8.4-10.5); TROPONIN I 1.99 ng/mL
[2017-04-30] MEDS: Metoprolol Succinate 25 mg XL Tab PO SCH (08:35)
--- NOTE | 2017-04-30 08:43 | RAD ---
HISTORY: Dyspnea. Portable study 19:29. COMPARISON: 03/12/2017 FINDINGS: LUNGS: Asymmetric pulmonary edema right greater than left. PLEURA: No significant pleural effusion identified, no pneumothorax apparent. CARDIOVASCULAR: Cardiomegaly/ CHF. OSSEOUS STRUCTURES: No significant abnormalities. VISUALIZED UPPER ABDOMEN: Normal. OTHER FINDINGS: None. IMPRESSION: Acute CHF with moderate asymmetrical pulmonary edema. Concordant results with the preliminary interpretation rendered by the emergency department physician procedure.
[2017-04-30] MEDS: Levalbuterol 1.25 MG/3 ML Inhal Soln UD IH SCH ×3 (08:44→19:30)
--- NOTE | 2017-04-30 08:45 | RAD ---
HISTORY: abdominal pain COMPARISON: GoNo prior. FINDINGS: BOWEL: Normal. No obstruction. No free air. BONES: Normal. OTHER FINDINGS: Lower lobe infiltrates/ edema incompletely visualized better seen on concurrent chest x-ray. IMPRESSION: No evidence of obstruction or free air. Concordant results with the preliminary interpretation rendered by the emergency department physician procedure.
[2017-04-30] MEDS ORDERED: AMLODIPINE PO SCH (10:00)
[2017-04-30] MEDS ORDERED: VALSARTAN PO SCH (10:00)
[2017-04-30] MEDS: cefTRIAXone 1 gm 1 GM/100 ML BAG IVPB SCH (13:04)
--- NOTE | 2017-04-30 13:11 | PN ---
DATE: SUBJECTIVE: The patient is 56 years old, seen and examined. He had episode of nose bleed. Wants to eat. He states his abdominal pain is gone. He has some epigastric discomfort. No documented nausea or vomiting. OBJECTIVE: VITAL SIGNS: He is afebrile, pulse 91, respirations 20, and blood pressure 165/86. LUNGS: Bilateral fair airflow, no rhonchi or crackles. HEART: S1 and S2 audible. ABDOMEN: Soft, slight epigastric palpable discomfort. No rebound. No guarding. NEUROLOGICAL: He is awake and alert, able to communicate. Moves all extremities. No motor or sensory deficits. LABORATORY EXAM: WBC is 6.8, hemoglobin 9.7, hematocrit 30.3, and platelets 184. PTT 31. Chemistry: Sodium is 138, potassium 4.8, chloride 94, CO2 of 32. BUN 41, creatinine 6.7. Blood sugar of 91. ASSESSMENT AND PLAN: 1. Abdominal pain, nonspecific, etiology unclear 2. Non-ST elevation myocardial infarction. Positive troponin. 3. End-stage renal disease, on hemodialysis. 4. Hemoptysis secondary to epistaxis. 5. History of chronic obstructive pulmonary disease. PLAN: The patient is currently on heparin and he is on aspirin, valsartan. He is getting nebulizer treatment. Discussed with Dr. Bolivar. Will continue on heparin. Will be given Plavix and aspirin. If he does not bleed anymore, possible cardiac cath, but now he is on Rocephin and nebulizer treatment. We will follow this patient in a.m. His diet has been advanced to renal diet. Valdemar Reese MD
--- NOTE | 2017-04-30 17:19 | CARD ---
APPROVED REPORT EKG Measurement Heart [id number] ID [id number] <Conclusion> Normal sinus rhythm Possible Left atrial enlargement T wave abnormality, consider lateral ischemia Abnormal ECG
--- NOTE | 2017-04-30 18:31 | CON ---
DATE: 04/30/2017 REASON FOR CONSULTATION: Hypoxia, shortness of breath, cough, hemoptysis, anemia, hyperkalemia, and ESRD. HISTORY OF PRESENT ILLNESS: A 56-year-old male known to me from outpatient hemodialysis. The patient presented to the emergency room yesterday with complaints of cough, upper abdominal pain, coughing up of blood for 1 week. The patient reports that he has been having increasing cough for 1 week. He has been having upper abdominal pain and for 1 day, he has been coughing up blood tinged sputum. In the emergency room, he was found to be short of breath. He was found to be hypoxic. His oxygen saturation was only 82%. He was found to have congestion on his chest x-ray. The patient had a complete dialysis treatment on Friday, but because of his pulmonary edema, urgent dialysis was performed in the emergency room. He had 2 hours of dialysis and 2 kg of fluid was removed. He was found to have troponin of 1.98 and a BNP of 192,000. He is currently admitted to the BICU. He is awake, he is alert. He is still coughing. He denies any shortness of breath at present. He complains of abdominal pain. He is still coughing up blood-tinged sputum. He also had epistaxis this morning. This might be because of the oxygen. PAST MEDICAL HISTORY AND SURGICAL HISTORY: Anti-GBM antibody disease, end-stage renal disease, hypertension, CAD, severe anemia, active smoking, failed peritoneal dialysis, history of peritonitis, recent GI bleed. Endoscopy showing linear esophageal ulcer with no bleeding and also few nonbleeding superficial gastric ulcers with clean base. This was in 01/2017. FAMILY HISTORY: Hypertension. SOCIAL HISTORY: Continues to smoke, continues to drink alcohol, no IV drug abuse, lives alone, poor hygiene. ALLERGIES: NO KNOWN DRUG ALLERGIES. MEDICATIONS AT HOME: Ranitidine, Protonix, PhosLo, and Exforge 10/320. REVIEW OF SYSTEMS: All systems are reviewed, pertinent positives are as mentioned in history of presenting illness, rest unremarkable. PHYSICAL EXAMINATION: GENERAL: A 56-year-old young male with signs of poor care. VITAL SIGNS: Blood pressure 141/82, heart rate 83, respiratory rate 21, temperature 97.7. HEENT: Normocephalic, atraumatic, positive pallor. NECK: Supple, no JVD. LUNGS: Bilateral equal air entry, bilateral equal expansion, scattered rhonchi. CARDIAC: S1, S2. Regular rate and rhythm, no murmur, no rub. ABDOMEN: Soft, nondistended, mild tenderness in the epigastrium, bowel sounds present. EXTREMITIES: No lower extremity edema. INTAKE AND OUTPUT: Not charted. LABORATORY DATA: WBC 6.8, hemoglobin 9.7, hematocrit 30, platelets 184. Sodium 138, potassium 4.8, chloride 94, CO2 of 32. BUN 41, creatinine 6.7. Glucose 91. Calcium 10.2, phosphorus 4.5, magnesium 2.6. Troponin 1.99. Total protein 7.1, albumin 3.9, globulin 3.2. ASSESSMENT: 1. Cough/hemoptysis? Secondary to antiglomerular basement membrane disease. 2. Decompensated congestive heart failure/pulmonary edema. 3. Severe anemia. 4. Recent gastrointestinal bleed with multiple esophageal and gastric ulcers. 5. History of hypertension. 6. Elevated troponins with chest tightness. 7. General noncompliance. 8. Hyperkalemia, resolved. PLAN: 1. Check anti-GBM antibody. 2. Check ESR. 3. Monitor H and H. 4. Dialysis today to complete his treatment. 5. Cardiology evaluation, discussed with Dr. Bolivar. It may be okay to heparinize the patient because his epistaxis is likely secondary to his oxygen use. 6. Monitor high blood pressure and continue antihypertensives. Case discussed at length with ICU staff. Case discussed with dialysis staff. Case discussed with Dr. Bolivar. More than 35 minutes spent in the care of this critically ill patient. Deidra Gomez MD
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
[2017-05-01] MEDS: Levalbuterol 1.25 MG/3 ML Inhal Soln UD IH SCH ×5 (01:03→19:56)
[2017-05-01 06:51] LABS: BASO # 0.1 K/mm3 (0.0-2.0); BASO % 1.2 % (0.0-3.0); EOS # 0.2 (0.0-0.7); EOS % 2.9 % (1.5-5.0); GRAN # 6.18 (1.4-6.5); GRAN % 74.7 % (50.0-68.0); HEMOGLOBIN 9.3 g/dL (14.0-18.0); LYMPH # 1.2 (1.2-3.4); LYMPH % 13.9 % (22.0-35.0); MEAN CELL VOLUME 100.3 fl (80.0-105.0); MEAN CORPUSCULAR HEMOGLOBIN 32.4 pg (25.0-35.0); MEAN CORPUSCULAR HGB CONC 32.3 g/dl (31.0-37.0); MEAN PLATELET VOLUME 8.7 fl (7.0-11.0); MONO # 0.6 (0.1-0.6); MONO % 7.3 % (1.0-6.0); RBC 2.87 10^6/uL (3.5-6.1); RED CELL DISTRIBUTION WIDTH 17.2 % (11.5-14.5); WHITE BLOOD COUNT 8.3 10^3/ul (4.5-11.0)
[2017-05-01 07:11] LABS: ALB/GLOB RATIO 1.3 (1.1-1.8); ALBUMIN 4.1 g/dL (3.0-4.8); CALCIUM 10.4 mg/dL (8.4-10.5)
[2017-05-01] MEDS ORDERED: Iodixanol 320 MG/ML 200 ML BOTTLE IV ONE (08:36)
[2017-05-01] MEDS ORDERED: HEPARIN SODIUM/NS 2,000 ML IV ONE (08:36)
[2017-05-01] MEDS ORDERED: Lidocaine 2% Inj (20ml) ONE (08:36)
[2017-05-01] MEDS ORDERED: Phenylephrine 10 mg/ml Inj ONE (08:36)
[2017-05-01] MEDS ORDERED: Midazolam 2 MG/2 ML VIAL ONE (08:49)
--- NOTE | 2017-05-01 09:35 | PQF CHF ---
This form is a permanent part of the medical record Clarification of your documentation is requested to better reflect the severity of illness and intensity of treatment of your patient. Indicators present Admitted w/ SOB, + trop, ESRD, non- compliant w/ dialysis. BNP- 192,000, CXR- Acute CHF. Please clarify if CHF POA, including Type & severity [x] Diagnosis of CHF and/or history of CHF [x] BNP > 200 [x] Imaging Finding of Pulmonary Edema /Pleural Effusions [] Fluid/Volume Overload [] Pitting edema [] Ejection Fraction < 40% (Indicative of Systolic Heart Failure) [] Ejection Fraction > 40% (Indicative of Diastolic Heart Failure) [x] Dyspnea / Orthopenea / Paroxysmal Nocturnal Dyspnea [] Other: Location in the medical record that reflects the above clinical findings: [x] Consult Treatment Provided: [] Dialysis, Card cath PHYSICIAN'S RESPONSE Based on your medical judgment of the clinical indicators outlined above, are you treating this patient for a known or suspected: [] Acute CHF [] Systolic [] Diastolic [] Combined [] Chronic CHF [] Systolic [] Diastolic [] Combined [x] Acute on Chronic CHF [x]Systolic [] Diastolic [] Combined [] CHF due hypertension [] Acute systolic []Chronic systolic [] Acute/ chronic systolic [] Other, please indicate: [] [] If Unable to Determine, please check the box, sign and date. Present On Admission (POA) Indicator: [] Present at the time of admission [] Not present at the time of admission [] Clinically Undetermined In responding to this query, please exercise your independent professional judgment. The fact that a question is asked does not imply that any particular answer is desired or expected. Thank you for your clarification on this documentation. If you have any questions please call:[ ] [phone] * Thank you, [ ]Domitila Greer RN [employer] [facility]
[2017-05-01] MEDS: Metoprolol Succinate 25 mg XL Tab PO SCH (09:47)
[2017-05-01] MEDS: Pantoprazole 40 mg EC Tab PO SCH (09:49)
[2017-05-01] MEDS: cefTRIAXone 1 gm 1 GM/100 ML BAG IVPB SCH (10:18)
--- NOTE | 2017-05-01 14:54 | CARD ---
APPROVED REPORT Procedure(s) performed: Left Heart Catheterization HISTORY The patient is a 56 year-old male with a history of : most recent EF: 25%. (EF Method: Echocardiogram), previous CHF, renal failure with dialysis, chronic lung disease, previous diagnostic cath, tobacco history() : The patient is a current smoker , hypertension , dyslipidemia , Admitted with gen weakness SOB,Hx of GI bleed in the past and Hx of Cath in 2013 Non Obstructve CAD but this admission troponon 1.92,2.1, and 1.97. INDICATION The indication(s) include : unstable angina , non-STEMI , dyspnea. CASE TECHNIQUE The patient was brought urgently to the Cardiac Catheterization Laboratory in a fasting state and was prepped and draped in a sterile manner. The right femoral groin was infiltrated with 2% Lidocaine subcutaneous anesthesia. A 6 Fr x 11 cm Denia sheath was inserted into the right femoral artery without difficulty. Coronary angiography was performed using coronary diagnostic catheters. The left coronary system was accessed and visualized with a Diagnostic ,6 Fr Performa JL 4 catheter. The right coronary system was accessed and visualized with a Diagnostic ,6 Fr Performa JR 4 catheter. The left ventricle was accessed and visualized with a 6 Fr Pigtail catheter. Left ventricular/Aortic Valve gradient assessed on pullback. Left ventriculogram was performed in MARTINEZ projection. An aortogram of the femoral artery was performed. Pre-demployment femoral angiogram was performed . Closure device was deployed with a 6 Fr Angio-Seal without any complications. The patient tolerated the procedure well and there were no complications associated with the procedure. Vessel Analysis The patient's coronary anatomy is co-dominant. The left main coronary artery is a large size vessel with diffuse calcification noted throughout this vessel and without significant stenosis. The left main bifurcates to the left anterior descending and circumflex. The left anterior descending artery is a large size vessel with diffuse calcification noted throughout this vessel and without significant stenosis. There is a 40% stenosis in the mid segment. The first diagonal branch is a large size vessel with intimal irregularities and without significant stenosis. The second diagonal branch is a small size vessel with diffuse calcification noted throughout this vessel and without significant stenosis. There is a 60-70% stenosis in the ostial segment. The circumflex artery is a large size vessel with intimal irregularities and without significant stenosis. The first obtuse marginal branch is a small size vessel with intimal irregularities and without significant stenosis. The second obtuse marginal branch is a small size vessel with diffuse calcification noted throughout this vessel and without significant stenosis. The left posterior descending artery is a large size vessel without significant stenosis. The right coronary artery is a medium size vessel with diffuse calcification noted throughout this vessel and without significant stenosis. The right posterior descending artery is a small size vessel without significant stenosis. The right posterolateral branch is a small size vessel without significant stenosis. Left Ventricle The left ventricle is enlarged in size with severely decreased contractility. Non-Ischemic cardiomyopathy. There was no cardiomyopathy. The left ventricular ejection fraction is estimated to be 25%. The left ventricular end diastolic pressure is 25 mmHg. There was no gradient across the aortic valve upon pullback. Conclusion Non Obstructive CAD limited to D2 ostial 60-70% stenosis. Non ischemic CMP, EF-25%, EDP-25 mm of Hg. Essentially unchanged CAD from 2014 ESRD, Hx of GI Bleed 30 cc cotrast used. Recommendations Cardiac Rehabilitation Referral Aggressive Medical TherapyCardiac Risk Reduction Program Add coreg , Dig MWF,Aldactone in addition to AHMET/ARB. Reassess LV Fx. in 3-6 months if still remains below 35%, consider AICD. CC: Edd Hall MD / Dayana Gomez MD
--- NOTE | 2017-05-01 15:12 | PN ---
DATE: REASON FOR CONSULTATION: Followup positive troponin, non-ST segment elevation myocardial infarction, acute coronary syndrome, abdominal pain, shortness of breath, status post cardiac catheterization, nonobstructive coronary artery disease. SUBJECTIVE: The patient denies any chest pain, shortness of breath, any palpitations. PHYSICAL EXAMINATION: GENERAL: Not in apparent distress. VITAL SIGNS: Temperature afebrile, heart rate 84, blood pressure 152/103. HEENT: PERRLA. Extraocular muscles intact. NECK: Supple. No carotid bruit or thyromegaly.. CHEST: Clear to auscultation. HEART: S1 and S2 regular. ABDOMEN: Soft. EXTREMITIES: Clubbing and cyanosis, negative. LABORATORY DATA: Blood workup as follows: WBC 8.3, hemoglobin , hematocrit 28.8, platelet count 179. Chemistry shows sodium 138, potassium 4.5, chloride 95, carbon dioxide 29, anion gap of 19, BUN 43, creatinine 6.9. Total troponin 1.99, maximum troponin 2.17. IMPRESSION: 1. Non-ST segment myocardial infarction, status post cardiac catheterization done this morning through the right femoral that shows left main essentially free of significant disease, left anterior descending has 40% stenosis, mid D2 diagonal 2 has ostial 60 to 70% stenosis, circumflex codominant large vessel essentially free of significant disease, right coronary artery codominant essentially free of significant disease, ejection fraction 25%, end-diastolic pressure was in the range of 25. 2. Nonischemic cardiomyopathy, end-stage renal disease on dialysis, history of peritoneal dialysis before, very noncompliance to the medication, signed out couple of times. 3. essentially unchanged CAD from previous cath ,done in 2013. RECOMMENDATIONS: Aggressive medical treatment. We will put digoxin Friday, Friday, Friday, continue AHMET or ARB inhibitor, discontinue Plavix, continue atorvastatin. We will put Coreg, discontinue metoprolol. Continue dialysis, reassess LV function in 3 to 6 months. If it remain below 35, consider AICD versus medical treatment because of noncompliance and dialysis, high risk of in future endocarditis if he is noncompliant. We will follow with you. History of infected peritoneal dialysis catheter, now the patient is on hemodialysis. History of pericardial surgery on 11/22/2013, normal coronaries. Chas Bolivar MD [facility]
--- NOTE | 2017-05-01 22:12 | PN ---
DATE: SUBJECTIVE: Patient is a 56-year-old, seen and examined. He had cardiac cath done; nonocclusive coronaries. No intervention needed. PHYSICAL EXAMINATION: VITAL SIGNS: Patient is afebrile, pulse 84, respirations 18, and blood pressure 133/89. LUNGS: Bilateral good airflow. No rhonchi or crackle. HEART: S1 and S2 audible. ABDOMEN: Soft, slight epigastric discomfort. NEUROLOGIC: He is awake, alert, oriented, and communicative. EXTREMITIES: Bilateral legs, no edema. LABORATORY DATA: WBC is 8.3, hemoglobin 9.3, hematocrit 28.8, platelets of 179. Chemistry: Sodium 138, potassium 4.5, chloride 95, CO2 of 29, BUN 43, creatinine 6.9. Blood sugar of 102. Cath report shows nonobstructive coronaries, D2 ostial is 60% to 70%, nonischemic cardiomyopathy with ejection fraction of 25%, unchanged from 2014. ASSESSMENT AND PLAN: 1. Chest pain, probably noncardiac. 2. Gastritis. 3. History of hypertension. 4. End-stage renal disease, on hemodialysis. 5. Anemia. 6. Congestive heart failure with pulmonary edema. 7. Cardiomyopathy with ejection fraction of 25%. So, plan is currently patient is on aspirin, carvedilol; he has been started on digoxin; and he is on atorvastatin, famotidine, Protonix and Vantin. CT scan of the chest has been requested because of his episode of hemoptysis. Patient is clinically stable, . Valdemar Reese MD
[2017-05-02] MEDS: Levalbuterol 1.25 MG/3 ML Inhal Soln UD IH SCH ×4 (02:59→20:31)
[2017-05-02 08:14] LABS: ALB/GLOB RATIO 1.2 (1.1-1.8); ALBUMIN 3.7 g/dL (3.0-4.8); CALCIUM 10.3 mg/dL (8.4-10.5)
[2017-05-02] MEDS: Pantoprazole 40 mg EC Tab PO SCH (09:11)
[2017-05-02 09:13] VITALS: PULSE 78
--- NOTE | 2017-05-02 09:16 | PN ---
DATE: 05/02/2017 REASON FOR THE CONSULTATION: Followup positive troponin, [id number] myocardial infarction, acute coronary syndrome, status post cardiac catheterization, nonobstructive coronary artery disease. SUBJECTIVE: The patient denies any chest pain, shortness of breath, any palpitations. Feels better. OBJECTIVE: GENERAL: Not in any apparent distress. VITAL SIGNS: Temperature afebrile, heart rate 79, blood pressure 145/89. HEENT: PERRLA. Extraocular muscles intact. NECK: Supple. No carotid bruit. No thyromegaly. CHEST: Clear to auscultation. HEART: S1 and S2 regular. ABDOMEN: Soft. EXTREMITIES: Clubbing and cyanosis negative. LABORATORY DATA: Blood workup as follows; WBC 8.3, hemoglobin 9.3, hematocrit 28.8, platelet count of 179. Chemistry shows sodium 135, potassium 5.8, chloride 95, carbon dioxide 27, anion gap of 20, BUN 62, creatinine 9.8. IMPRESSION: Troponin-positive [id number] myocardial infarction, maximum troponin 2.17. On admission, the patient's troponin 1.98, 2.17, 1.99. Yesterday, the patient underwent cardiac catheterization. Nonobstructive coronary artery disease, limited to only diagonal 2. Essentially unchanged cardiac catheterization from 2013. 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 RECOMMENDATION: No further cardiac workup. Continue workup for abdominal pain. History of GI bleed in the past. Continue workup for chest. The patient is going for CT chest now. Continue GI workup. Monitor H and H. Upon Cardiology point of view, the patient will be started digoxin Friday, Friday, Friday. Start Coreg 12.5 p.o. b.i.d., baby aspirin. Continue atorvastatin. Decrease to 20 mg daily. Continue valsartan. I discussed with the patient in length that sometime down the line, reassess LV function in 3 to 6 months and if EF remains below 35, consider AICD, though there are a lot of skepticism in putting AICD because the patient is noncompliant, end-stage renal disease, high risk for infective endocarditis, but I will reassess the LV function in 3 to 6 months ago and recommendation will be made. The patient is okay to transfer to [facility]. From Cardiology point of view, no further cardiac workup is planned. When the patient is stable from GI and chest CT is done, the patient can be discharged home. Follow up as outpatient. Thank you, Dr. Reese for providing us the opportunity in taking care of Suhas Del Cid. Chas Bolivar MD
--- NOTE | 2017-05-02 09:20 | PN ---
DATE: 05/01/2017 SUBJECTIVE: The patient is currently seen lying in bed ICU bed 2. He is status post a cardiac catheterization. The patient is currently saturating at 100%. He appears to be in no acute distress. We will not do dialysis today. His oxygen saturation is 100%. The patient is feeling comfortable with a small amount of dye used. I have no plans to override his desires and wishes. MEDICATIONS: Medication list reviewed. The patient is currently on aspirin, Coreg, digoxin, Diovan, Lipitor, Pepcid, PhosLo, Protonix, Rocephin and Xopenex. At present, the patient is not receiving IV heparin. OBJECTIVE INTAKE/OUTPUT: Not charted. VITAL SIGNS: Post cardiac catheterization blood pressure is 134/88. Heart rate is 79 and regular. Respiratory rate is 15. Temperature is 98.5. HEENT: Exam shows him to be normocephalic, atraumatic. Conjunctivae are pale. Sclerae are nonicteric. NECK: Supple. No neck vein distention. CHEST: Clear to auscultation and percussion with slight decreased breath sounds at the bases. No rales, rhonchi or wheezing. CARDIOVASCULAR: Shows a regular rate and rhythm without audible murmurs, rubs or gallops. ABDOMEN: Soft. Bowel sounds normal. No rebound, guarding or masses. EXTREMITIES: Show no cyanosis, no clubbing, no edema. The patient has a left upper extremity AV fistula. Positive thrill. Positive bruit. LABORATORY DATA AND IMAGING: CBC today white blood cell count is 8.3, hemoglobin slightly lower at 9.3, platelet count is 179,000. Chemistry: Electrolytes are normal. BUN 43 with a creatinine of 6.9. Calcium is 10.4 with a phosphorus of 5.0. Magnesium is 2.5. Troponins remain mildly elevated in the 1.95 to 1.99 range. His BNP on admission was 192,000. His admitting chest x-ray showed CHF. Microbiology, blood cultures are negative at 24 hours. ASSESSMENT 1. End-stage renal disease. The patient will continue his routine Friday, Friday, Friday dialysis; with being in the hospital, will be able to monitor his fluid intake. We should be able to bring him down to his dry weight. The patient does not require an extra dialysis today; only a small amount of dye/contrast was used for his cardiac catheterization. He appears to be comfortable lying supine in bed with a pulse ox of 100%. 2. Elevated troponin levels with a essentially negative cardiac catheterization and CHF. Fluid retention, CHF are likely secondary to complete noncompliance with fluid restrictions in the outpatient setting. We will hopefully be able to lower the patient down to his dry weight in preparation for outpatient dialysis. 3. Past history of Anti-GBM, crescentic glomerulonephritis. 4. History of mild hyperkalemia. The patient is noncompliant with potassium restriction in his diet. 5. History of hypertension. Blood pressure presently is controlled on current medications. The patient will continue Coreg, Diovan and amlodipine. 6. Past history of peritoneal dialysis complicated by multiple bouts of peritonitis secondary to noncompliance. Hence, the patient is back on hemodialysis. 7. History of anemia. Keep hemoglobin in the 9-10 range. Continue Aranesp with dialysis. 8. Past history of gastrointestinal bleeding. No evidence for gastrointestinal bleeding presently. 9. History of chronic obstructive pulmonary disease. The patient continues to smoke cigarettes on a regular basis. PLAN 1. Discussed with staff in the ICU. The patient will not require an extra dialysis today as he is entirely comfortable, pulse ox measurements were excellent at 100%. The patient will receive his routine dialysis tomorrow and we will attempt to lower him down to his estimated dry weight. 2. Stressed to the patient the importance of stopping cigarette smoking and to be compliant with dietary restrictions and fluid restrictions. 3. Reviewed with the patient his essentially negative cardiac catheterization. 4. Continue binder therapy and a renal diet. 5. Case discussed with ICU staff. Greater than 35 minutes spent in the care of this patient. Josef Leon MD [facility]
--- NOTE | 2017-05-02 09:23 | CT ---
PROCEDURE: CT Chest without contrast HISTORY: sob/hemoptysis COMPARISON: Comparison is made to the previous study dated 04/22/2016 TECHNIQUE: Contiguous axial images were obtained through the chest without intravenous contrast enhancement. Sagittal and coronal reconstructions were performed. Radiation dose (DLP): 333.2 mGy-cm. This CT exam was performed using one or more of the following dose reduction techniques: Automated exposure control, adjustment of the mA and/or kV according to patient size, and/or use of iterative reconstruction technique. FINDINGS: LUNGS: There is diffuse interstitial septal thickening noted associated with mild ground-glass opacities more prominent at the mid and lower portion of the lungs. Mild air trapping and mosaic appearance of the lungs is also noted more prominent at the mid and lower portion of the lungs. Interval appearance of linear shaped opacity at the left lung upper lobe lower segment since the previous exam. Findings are nonspecific and the differential consolidation include atelectasis or infectious process. Slight central bronchiectasis is noted. MEDIASTINUM: The thoracic aorta is slightly ectatic and tortuous. The heart is mildly enlarged. Main pulmonary artery unremarkable. No vascular congestion. Mildly enlarged mediastinal lymph nodes are noted. PLEURA: No pleural fluid. No pneumothorax. BONES: No fracture. No destructive lesion. UPPER ABDOMEN: Heterogeneous attenuation in the renal cortex is again noted with possible small cystic formation. OTHER FINDINGS: None. IMPRESSION: Diffuse interstitial septal thickening noted in the lungs. Diffuse ground-glass opacities more prominent at the mid and lower portion of the lungs associated with mild air trapping. Findings are nonspecific and the differential consideration includes pulmonary congestion, interstitial lung disease and small vessels disease. Interval appearance of linear shaped opacity at the left lung upper lobe since the previous exam which could be due to scarring, atelectasis or infectious process. Mild cardiomegaly.
[2017-05-02] MEDS ORDERED: Digoxin 125 mcg (0.125 mg) Tab PO SCH (10:00)
[2017-05-02] MEDS ORDERED: Cefpodoxime (Vantin) 200 mg Tab PO SCH (10:00)
--- NOTE | 2017-05-02 17:18 | PN ---
DATE: 05/02/2017 SUBJECTIVE: The patient is seen in the dialysis unit. He is awake, he is alert, he is comfortable. He denies any pain. he denies any cough. He denies any hemoptysis. PHYSICAL EXAMINATION: GENERAL: Middle-aged male, lying in bed. VITAL SIGNS: Blood pressure 150/89, heart rate 79, respiratory rate 22, temperature 98. HEENT: Normocephalic, atraumatic. NECK: Supple, no JVD. LUNGS: Bilateral equal entry, no rales. CARDIAC: S1, S2, regular rate and rhythm, no murmur, no rub. ABDOMEN: Soft, nondistended, nontender, bowel sounds present. EXTREMITIES: No lower extremity edema. INTAKE AND OUTPUT: Not charted. LABORATORY DATA: WBC 8.3, hemoglobin 9.3, hematocrit 28.8, and platelet count 179. Sodium 135, potassium 5.8, chloride 95, CO2 of 27. BUN 62, creatinine 9.8. Glucose 94. Calcium 10.3, phosphorus 6.6 magnesium 2.6. Anti-GBM antibody less than 1. CURRENT MEDICATIONS: Aspirin, Coreg, digoxin, valsartan, Lipitor, Pepcid, PhosLo, Protonix, and Xopenex. ASSESSMENT AND PLAN: 1. Cough, abdominal pain, and hemoptysis. 2. Chest tightness, elevated troponins, acute coronary syndrome, ruled out by cardiac catheterization. 3. Severe anemia. 4. Recent gastrointestinal bleed, multiple gastric and esophageal ulcers. 5. Hypertension. 6. End-stage renal disease. PLAN: 1. Hemoglobin is stable, ruled out active GI bleed. 2. CT of the chest consistent with interstitial edema?, increase ultrafiltration on dialysis. 3. History of anti-GBM antibody disease, repeat anti-GBM antibody negative. 4. Stable dialysis today. 5. Continue PPI. Deidra Gomez MD
[2017-05-02 17:26] VITALS: BP 148/79
[2017-05-03] MEDS: Levalbuterol 1.25 MG/3 ML Inhal Soln UD IH SCH ×3 (01:45→13:22)
[2017-05-03 02:11] VITALS: O2SAT 100
[2017-05-03 06:57] VITALS: TEMP 99.1
[2017-05-03] MEDS: Pantoprazole 40 mg EC Tab PO SCH (09:40)
[2017-05-03 10:57] VITALS: RESP 23
[2017-05-03 11:22] VITALS: PULSE 89
--- NOTE | 2017-05-03 12:37 | PN ---
DATE: SUBJECTIVE: The patient is currently seen downgraded from the ICU, but in ICU bed 2. The patient is dressed and is ready to sign out against medical advice. His labs from the morning were reviewed. His potassium was 5.8. I did discuss with the patient the possibility of a short dialysis for his hyperkalemia. He refuses. I will offer him Kayexalate 30 g and Sorbitol x1 dose. His next dialysis will likely be in the outpatient unit on 05/05/2017. MEDICATIONS: Medication list reviewed. The patient is currently on aspirin, Coreg, digoxin, Diovan, Lipitor, Pepcid, PhosLo, Protonix and Xopenex. OBJECTIVE: VITAL SIGNS: Blood pressure maintained 148/79. Pulse 79, respiratory rate is 23. Temperature is 99.1. Intake/output: Intake 1200, output 2000 with dialysis yesterday. HEENT: Normocephalic, atraumatic. Conjunctivae are pale. Sclerae nonicteric. NECK: Supple. No neck vein distention. CHEST: Clear to auscultation and percussion with slight decreased breath sounds at the bases. No rales, rhonchi or wheezing. CARDIOVASCULAR: Shows a regular rate and rhythm without audible murmurs, rubs or gallops. ABDOMEN: Soft. Bowel sounds normal. No rebound, guarding or masses. EXTREMITIES: Show no cyanosis, no clubbing or edema. The patient has a left upper extremity AV fistula. LABORATORY DATA AND IMAGING: CBC from 05/01/2017: White cell count 8.3, hemoglobin 9.2 with a platelet count of 179,000. Chemistries: Sodium 135, potassium 5.8 that was predialysis yesterday. BUN 62 with a creatinine of 9.8. Calcium 10.3, phosphorus 6.6 with a magnesium of 2.6. No further troponins were done. Microbiology: Blood cultures are negative. ASSESSMENT: 1. End-stage renal disease. The patient will continue routine Friday, Friday, Friday dialysis. 2. He will likely leave the hospital today and continue with outpatient dialysis in [facility]. 3. Elevated troponin level. Negative cardiac catheterization. Congestive heart failure is clinically resolved. 4. Past history of crescentic glomerulonephritis. 5. History of mild hyperkalemia. The patient has been noncompliant with potassium in his diet. I did suggest to him that he possibly take one dose of Kayexalate prior to discharge as the patient has always come into the dialysis unit with potassiums in the six range. 6. History of hypertension. Blood pressure controlled on present medical therapy. I will continue Coreg, Diovan and amlodipine. 7. History of anemia. Hemoglobin is stable in the 9.3 range. This is consistent with his chronic kidney disease. 8. Past history of gastrointestinal bleeding. 9. History of chronic obstructive pulmonary disease. The patient continues to smoke cigarettes. PLAN: 1. In all likelihood, the patient will sign out against medical advice. 2. I discussed with him the possibility of taking one dose of Kayexalate prior to discharge to lower his potassium level. 3. I told the patient he must stop cigarette smoking. 4. In all likelihood, we will see the patient in the outpatient unit early next week. Josef Leon MD
[2017-05-03] MEDS ORDERED: Sod Polystyrene Sulf 15 gm/60 ml Susp PO ONE (16:00)
--- NOTE | 2017-05-03 16:34 | PN ---
DATE: 05/03/2017 LOCATION: Patient in ICU 128, bed 2. REASON FOR CONSULTATION AND FOLLOWUP: Positive troponin, non-ST segment elevation myocardial infarction, acute coronary syndrome, status post cardiac catheterization, nonobstructive coronary artery disease. SUBJECTIVE: Patient lying flat in bed without chest pain, shortness of breath, palpitations. PHYSICAL EXAMINATION: VITAL SIGNS: Blood pressure is 148/79, repeat blood pressure 126/77 and another blood pressure 139/80 and ; respirations 21; pulse 81; patient afebrile. HEENT: Head is normocephalic. Eyes: Pupils normal. Conjunctivae slightly pale. NECK: JVP low. Carotids equal. THORAX: AP diameter normal. LUNGS: No significant rales. CARDIOVASCULAR: S1, S2. ABDOMEN: Soft. No organomegaly. Bowel sounds normal. EXTREMITIES: No clubbing, no cyanosis. LABORATORY DATA: WBC 8.3, hemoglobin 9.3, hematocrit 28.8, platelet 179. Sodium 135, potassium 5.8, BUN 62, creatinine 9.8. phosphorus 6.6, magnesium 2.6. AST and ALT normal, troponin 1.99 first one, second one 1.95, total protein and albumin normal. DIAGNOSES: Troponin positive, non-ST segment elevation myocardial infarction. Patient had a cardiac catheterization, showed nonobstructive coronary artery disease limited only to diagonal 2, essentially unchanged cardiac catheterization from 2013; end-stage renal failure; substance abuse, patient on dialysis; cardiomyopathy, nonischemic; history of heavy alcohol abuse; substance abuse. Most likely, patient has alcoholic cardiomyopathy. Patient is on dialysis. PLAN: Patient does not need any further cardiac workup. Patient only had catheterization findings given above. We will repeat LV function in 3 to 6 months and if still ejection fraction above 35%, consider AICD insertion. Renal failure, on dialysis; anemia. Patient on aspirin 81 daily, Coreg 12.5 b.i.d., digoxin 0.125 Friday, Friday and Friday, Lipitor 20 daily, Protonix 40 daily, carvedilol 12.5 b.i.d. We will continue present therapy. We will follow with you. Chas Oseguera MD [facility] # [id number]
--- NOTE | 2017-05-05 08:17 | PN ---
DATE: The patient is 66 years old, seen and examined, lying in bed, seems to be comfortable, eating and tolerating. No nausea or vomiting. No diarrhea. Some epigastric discomfort. PHYSICAL EXAMINATION: VITAL SIGNS: He is afebrile, pulse 79, respirations 22, blood pressure 158/89. LUNGS: Bilateral good airflow. No rhonchi or crackles. HEART: S1, S2, audible. ABDOMEN: Soft, nontender. No rebound, no guarding. NEUROLOGIC: The patient is awake and alert, able to communicate. Moves all extremities. LABORATORY EXAM: Sodium 135, potassium 5.8, chloride 95, CO2 27, BUN 62, creatinine 9.8, blood sugar of 94. CT scan of the chest done yesterday shows diffuse interstitial septal thickening in the lung, diffuse ground-glass opacities more prominent in the mid and the lower portion of the lungs associated with mild air trapping. Findings are nonspecific and could be pulmonary congestion versus interstitial lung disease. ASSESSMENT: 1. Non-ST elevation myocardial infarction, status post cardiac cath and had nonocclusive coronaries. 2. Gastritis. 3. End-stage renal disease, on hemodialysis. 4. Chronic anemia. 5. Osteoarthritis. 6. Interstitial lung disease. PLAN: We will continue the patient on nebulizer treatment. He is on Protonix. We will continue on PhosLo. Continue him on Lipitor and valsartan. He has been started on Digoxin and Coreg. The patient is clinically stable. Can be transferred to telemetry, encourage ambulation and physical therapy. The patient is stable. Possible discharge in the a.m. Valdemar Reese MD
== END 2017-05-03 14:00 | disposition left against medical advice (07) | DRG 280 ==
LOC: ED 18:27 → ERH 22:16 → ICU 04-30 01:45
PROVIDERS: ADMIT Internal Medicine; ATTEND Internal Medicine
PROC: 5A1D70Z Performance of Urinary Filtration, Intermittent, Less than 6 Hours Per Day (ICD-10-PCS; 2017-04-30)
PROC: 4A023N7 Measurement of Cardiac Sampling and Pressure, Left Heart, Percutaneous Approach (ICD-10-PCS; principal; 2017-05-01)
PROC: B2111ZZ Fluoroscopy of Multiple Coronary Arteries using Low Osmolar Contrast (ICD-10-PCS; 2017-05-01)
PROC: 4A033BC Measurement of Arterial Pressure, Coronary, Percutaneous Approach (ICD-10-PCS; 2017-05-01)
PROC: B2151ZZ Fluoroscopy of Left Heart using Low Osmolar Contrast (ICD-10-PCS; 2017-05-01)
PROC: 5A1D70Z Performance of Urinary Filtration, Intermittent, Less than 6 Hours Per Day (ICD-10-PCS; 2017-05-02)
DX: I21.4 Non-ST elevation (NSTEMI) myocardial infarction (principal); I50.23 Acute on chronic systolic (congestive) heart failure; J84.9 Interstitial pulmonary disease, unspecified; I42.6 Alcoholic cardiomyopathy; I13.2 Hypertensive heart and chronic kidney disease with heart failure and with stage 5 chronic kidney disease, or end stage renal disease; J44.1 Chronic obstructive pulmonary disease with (acute) exacerbation; K22.10 Ulcer of esophagus without bleeding; E87.5 Hyperkalemia; N18.6 End stage renal disease; M31.0 Hypersensitivity angiitis; N03.9 Chronic nephritic syndrome with unspecified morphologic changes; R04.2 Hemoptysis; I25.110 Atherosclerotic heart disease of native coronary artery with unstable angina pectoris; K25.9 Gastric ulcer, unspecified as acute or chronic, without hemorrhage or perforation; K29.70 Gastritis, unspecified, without bleeding; M19.90 Unspecified osteoarthritis, unspecified site; R04.0 Epistaxis; R09.02 Hypoxemia; D64.9 Anemia, unspecified; E78.5 Hyperlipidemia, unspecified; F17.210 Nicotine dependence, cigarettes, uncomplicated; Z79.82 Long term (current) use of aspirin; Z79.899 Other long term (current) drug therapy; Z87.11 Personal history of peptic ulcer disease; Z87.19 Personal history of other diseases of the digestive system; Z87.448 Personal history of other diseases of urinary system; Z91.14 Patient's other noncompliance with medication regimen; Z91.19 Patient's noncompliance with other medical treatment and regimen; Z99.2 Dependence on renal dialysis; R40.2412 Glasgow coma scale score 13-15, at arrival to emergency department